=== PATIENT | male | born 1950 | race Caucasian/White ===

== ENCOUNTER 2020-12-18 10:23 | Outpatient (REF) | payer MEDICARE, SELFPAY ==
[2020-12-18 10:38] LABS: MANUAL DIFF FLAG NO
[2020-12-18 11:06] LABS: Basophils Percent Auto 0.5 % (0-2); Eosinophils Absolute Auto 0.3 X10*3/uL (0.0-0.4); Eosinophils Percent Auto 4.5 % (0-4); Hematocrit 42.2 % (42-52); Hemoglobin 14.2 g/dl (14.0-18.0); Imm Gran Abs Auto 0.02 X10*3/uL (0.00-0.03); Imm Gran Pct Auto 0.3 % (0.0-0.4); Lymphocytes Absolute Auto 2.3 X10*3/uL (1.2-4.9); Lymphocytes Percent Auto 30.2 % (20-40); Mean Corpuscular HGB Conc 33.6 g/dl (31.0-36.0); Mean Corpuscular Hemoglobin 29.8 pg (27.0-33.0); Mean Corpuscular Volume 88.7 fL (80-98); Mean Platelet Volume 9.9 fL (9.4-12.4); Monocytes Absolute Auto 0.7 X10*3/uL (0.1-1.2); Monocytes Percent Auto 8.8 % (2-11); Neutrophils Absolute Auto 4.2 X10*3/uL (2.0-8.3); Neutrophils Percent Auto 55.7 % (45-73); Platelet Count 254 X10*3/uL (160-400); Red Blood Count 4.76 X10*6/uL (4.60-5.80); Red Cell Distribution Width 13.1 % (11.0-16.0); White Blood Count 7.5 X10*3/uL (4.8-10.8)
[2020-12-18 11:15] LABS: Estimated Average Glucose 120 mg/dL; Hemoglobin A1c % 5.8 %
[2020-12-18 11:41] LABS: Glucose Urine UA NEG (NEG); Leukocyte Esterase Urine NEG (NEG); Nitrite Urine NEG (NEG); Urine Blood NEG (NEG); Urine Ketones NEG (NEG); Urine Protein NEG (NEG-TRACE)
[2020-12-18 11:53] LABS: Appearance Urine CLEAR; Color Urine YELLOW
[2020-12-18 12:13] LABS: Alanine Aminotransferase 37 U/L (0-40); Albumin Level 4.7 g/dL (3.5-5.0); Alkaline Phosphatase 51 U/L (39-117); Anion Gap 15 (12-20); Aspartate Amino Transferase 22 U/L (5-37); Bilirubin Total 0.6 mg/dL (0.0-1.0); Blood Urea Nitrogen 14 mg/dL (9-16); Carbon Dioxide 25 mmol/L (22-29); Chloride 105 mmol/L (96-108); Cholesterol 139 mg/dL; Estimated Glomerular Filt Rate > 60; Glucose Fasting 113 mg/dL (60-99); HDL Cholesterol 40 mg/dL; LDL Cholesterol Calculated 63 mg/dl; Sodium 141 mmol/L (135-145); Total Protein 7.1 g/dL (6.5-8.0); Triglycerides 184 mg/dL
[2020-12-18 12:20] LABS: PSA,Total (Free>4and<10) 1.31 ng/mL (0.00-4.00)
[2020-12-18 12:44] LABS: Creatinine Urine 24.83 mg/dL; Microalbumin Urine < 5.0 mg/L
[2020-12-18 13:35] LABS: Reflex LDLD? No
== END 2020-12-18 10:24 | disposition home or self-care (01) ==
LOC: HO.LNP 10:23
PROVIDERS: Visit Provider Internal Medicine
DX: Z00.00 Encounter for general adult medical examination without abnormal findings (principal); I10 Essential (primary) hypertension; E78.00 Pure hypercholesterolemia, unspecified; N40.0 Benign prostatic hyperplasia without lower urinary tract symptoms; E11.9 Type 2 diabetes mellitus without complications; Z12.5 Encounter for screening for malignant neoplasm of prostate
CPT/HCPCS: 80053; 80061; 81003; 82043; 83036; 84153; 85025

== ENCOUNTER 2021-12-20 11:25 | Outpatient (REF) | payer MEDICARE, SELFPAY ==
[2021-12-20 11:28] LABS: MANUAL DIFF FLAG NO
[2021-12-20 11:48] LABS: Basophils Absolute Auto 0.1 X10*3/uL (0.0-0.2); Basophils Percent Auto 0.8 % (0-2); Eosinophils Absolute Auto 0.4 X10*3/uL (0.0-0.4); Eosinophils Percent Auto 4.8 % (0-4); Hemoglobin 14.6 g/dl (14.0-18.0); Imm Gran Abs Auto 0.02 X10*3/uL (0.00-0.03); Imm Gran Pct Auto 0.3 % (0.0-0.4); Lymphocytes Absolute Auto 1.9 X10*3/uL (1.2-4.9); Lymphocytes Percent Auto 25.4 % (20-40); Mean Corpuscular HGB Conc 33.2 g/dl (31.0-36.0); Mean Corpuscular Hemoglobin 29.7 pg (27.0-33.0); Mean Corpuscular Volume 89.4 fL (80.0-98.0); Mean Platelet Volume 9.5 fL (9.4-12.4); Monocytes Absolute Auto 0.7 X10*3/uL (0.1-1.2); Monocytes Percent Auto 9.5 % (2-11); Neutrophils Absolute Auto 4.5 x10*3/uL (2.0-8.3); Neutrophils Percent Auto 59.2 % (45-73); Platelet Count 241 X10*3/uL (160-400); Red Blood Count 4.92 X10*6/uL (4.60-5.80); Red Cell Distribution Width 12.4 % (11.0-16.0); White Blood Count 7.6 X10*3/uL (4.8-10.8)
[2021-12-20 11:56] LABS: Estimated Average Glucose 114 mg/dL; Hemoglobin A1c % 5.6 %
[2021-12-20 11:57] LABS: Appearance Urine CLEAR; Color Urine YELLOW; Glucose Urine UA NEG (NEG); Leukocyte Esterase Urine NEG (NEG); Nitrite Urine NEG (NEG); PH 6.5 (5.0-8.0); Specific Gravity - Urine <= 1.005 (1.005-1.025); Urine Blood NEG (NEG); Urine Ketones NEG (NEG); Urine Protein NEG (NEG-TRACE)
[2021-12-20 12:04] LABS: Alanine Aminotransferase 32 U/L (0-40); Albumin Level 4.5 g/dL (3.5-5.0); Alkaline Phosphatase 51 U/L (39-117); Anion Gap 12 (12-20); Aspartate Amino Transferase 22 U/L (5-37); Bilirubin Total 0.7 mg/dL (0.0-1.0); Blood Urea Nitrogen 19 mg/dL (9-16); Calcium 10.4 mg/dL (8.4-10.2); Carbon Dioxide 26 mmol/L (22-29); Chloride 104 mmol/L (96-108); Cholesterol 137 mg/dL; Estimated Glomerular Filt Rate > 60; Glucose Fasting 94 mg/dL (60-99); HDL Cholesterol 38 mg/dL; LDL Cholesterol Calculated 80 mg/dl; Sodium 138 mmol/L (135-145); Total Protein 7.1 g/dL (6.5-8.0); Triglycerides 98 mg/dL
[2021-12-20 12:12] LABS: RBC Urine 0 /HPF (0); WBC Urine 0 /HPF (0-4)
[2021-12-20 12:22] LABS: Creatinine Urine 30.77 mg/dL; Microalbumin Urine < 5.0 mg/L
== END 2021-12-20 11:26 | disposition home or self-care (01) ==
LOC: HO.LNP 11:25
PROVIDERS: Visit Provider Internal Medicine
DX: Z00.00 Encounter for general adult medical examination without abnormal findings (principal); I10 Essential (primary) hypertension; E78.6 Lipoprotein deficiency; E78.00 Pure hypercholesterolemia, unspecified; E11.9 Type 2 diabetes mellitus without complications
CPT/HCPCS: 80053; 80061; 81001; 82043; 83036; 85025

== ENCOUNTER 2021-12-27 15:55 | Outpatient (REF) | payer MEDICARE, SELFPAY ==
[2021-12-27 16:19] LABS: Calcium 11.1 mg/dL (8.4-10.2)
[2021-12-27 16:37] LABS: PSA,Total (Free>4and<10) 2.62 ng/mL (0.00-4.00)
== END 2021-12-27 15:56 | disposition home or self-care (01) ==
LOC: HO.LNP 15:55
PROVIDERS: Visit Provider Internal Medicine
DX: Z12.5 Encounter for screening for malignant neoplasm of prostate (principal); N40.0 Benign prostatic hyperplasia without lower urinary tract symptoms; E83.52 Hypercalcemia
CPT/HCPCS: 82310; 84153

== ENCOUNTER 2021-12-28 10:03 | Outpatient (REF) | payer MEDICARE, SELFPAY ==
[2022-01-01 13:41] LABS: Calcium (PTHI) 10.5 mg/dL (8.6-10.3); PTHI 70 pg/mL (16-77)
== END 2021-12-28 10:04 | disposition home or self-care (01) ==
LOC: HO.LAB 10:03
PROVIDERS: PCP Internal Medicine; Visit Provider Internal Medicine
DX: E83.52 Hypercalcemia (principal)
CPT/HCPCS: 36415; 83970

== ENCOUNTER 2022-01-24 08:33 | Outpatient (REF) | payer MEDICARE, SELFPAY ==
--- NOTE | ~2022-01-24 | MM_ITS ---
EXAMINATION: BONE DENSITOMETRY CLINICAL INDICATION: Hyperparathyroidism. COMPARISON: None (current study represents initial baseline exam). TECHNIQUE: Using a DrDoctor DXA System (software version: 13.1) manufactured by [employer], dual-energy x-ray absorptiometry was performed of the lumbar spine, left hip, and left forearm radius 33%. The images are of good technical quality. Summary results are attached. FINDINGS: AP SPINE L1-L2 (excluding L3 and L4): The data of L1-L4 has been changed to exclude the L3 and L4 vertebral bodies, because degenerative changes at these levels may cause overestimation of lumbar spine density. BMD 1.360 g/cm2, Z-score 1.2, T-score 1.3, normal. LEFT FEMUR, NECK: BMD 0.994 g/cm2, Z-score 0.2, T-score -0.6, normal. LEFT FEMUR, TOTAL: BMD 1.114 g/cm2, Z-score 0.4, T-score 0.1, normal. LEFT FOREARM RADIUS 33%: BMD 1.091 g/cm2, Z-score 1.9, T-score 1.0, normal. IDENTIFIED RISK FACTORS: Family history (parent hip fracture), hyperparathyroid, Thiazide. HISTORY OF FRACTURE: None listed. MEDICATIONS: Calcium, vitamin D. MM/XR DEXA appendicular skeleton IMPRESSION: 1. DIAGNOSIS: Normal bone density based on the lowest T-score value of -0.6 in the femoral neck applying World Health Organization criteria. 2. 10-YEAR FRACTURE RISK PREDICTION, FRAX: According to the guidelines, FRAX calculation should only be performed on patients in the osteopenia bone density category. Therefore, FRAX was not performed on this patient. 3. Treatment Recommendations: NOF guidelines recommend consideration for treatment in postmenopausal women and men age 50 and older presenting with the following: -A hip or vertebral (clinical or morphometric) fracture. -T-score less than or equal to -2.5 at the femoral neck or spine after appropriate evaluation to exclude secondary causes. -Low bone mass at the hip or spine and a 10-year fracture probability by FRAX of greater than or equal to 3% for hip fracture or greater than or equal to 20% for major osteoporotic fracture based on the [place] adapted WHO algorithm. 4. Other Recommendations: All treatment decisions require clinical judgment and consideration of individual patient factors, including patient preferences, comorbidities, previous drug use, risk factors not captured in the FRAX model (e.g. frailty, falls, vitamin D deficiency, increased bone turnover, interval significant decline in bone density) and possible under or overestimation of fracture risk by FRAX. FUTURE SCAN RECOMMENDATION: People with diagnosed cases of osteoporosis or at high risk for fracture should have regular bone mineral density tests. For patients eligible for Medicare, routine testing is allowed once every 2 years. The testing frequency can be increased to one year for patients who have rapidly progressing disease, those who are receiving or discontinuing medical therapy to restore bone mass, or have additional risk factors.
== END 2022-01-24 08:34 | disposition home or self-care (01) ==
LOC: HO.MAMMO 08:33
PROVIDERS: PCP Internal Medicine; Visit Provider Internal Medicine
DX: Z13.820 Encounter for screening for osteoporosis (principal); E21.3 Hyperparathyroidism, unspecified; Z79.899 Other long term (current) drug therapy
CPT/HCPCS: 77081

== ENCOUNTER 2022-04-22 07:24 | Outpatient (REF) | payer MEDICARE, SELFPAY ==
[2022-04-22 08:07] LABS: Calcium 10.3 mg/dL (8.4-10.2)
== END 2022-04-22 07:25 | disposition home or self-care (01) ==
LOC: HO.LAB 07:24
PROVIDERS: PCP Internal Medicine; Visit Provider Internal Medicine
DX: E83.52 Hypercalcemia (principal)
CPT/HCPCS: 36415; 82310

== ENCOUNTER 2022-06-21 10:47 | Outpatient (REF) | payer MEDICARE, SELFPAY ==
[2022-06-21 11:22] LABS: Estimated Average Glucose 117 mg/dL; Hemoglobin A1c % 5.7 %
[2022-06-21 12:33] LABS: Alanine Aminotransferase 31 U/L (0-40); Alkaline Phosphatase 61 U/L (39-117); Aspartate Amino Transferase 23 U/L (5-37); Bilirubin Direct 0.3 mg/dL (0.0-0.5); Bilirubin Total 0.6 mg/dL (0.0-1.0); Cholesterol 149 mg/dL; Glucose Fasting 108 mg/dL (60-99); HDL Cholesterol 43 mg/dL; LDL Cholesterol Calculated 82 mg/dl; Total Protein 7.2 g/dL (6.5-8.0); Triglycerides 123 mg/dL
[2022-06-21 12:56] LABS: Albumin Level 4.7 g/dL (3.5-5.0)
[2022-06-21 14:50] LABS: Reflex LDLD? No
== END 2022-06-21 10:48 | disposition home or self-care (01) ==
LOC: HO.LNP 10:47
PROVIDERS: Visit Provider Internal Medicine
DX: E78.00 Pure hypercholesterolemia, unspecified (principal); E11.9 Type 2 diabetes mellitus without complications
CPT/HCPCS: 80061; 80076; 82947; 83036

== ENCOUNTER → 2022-08-20 07:56 | Outpatient (BNVA) | payer MEDICARE, SELFPAY | PROVIDERS: PCP Internal Medicine; Visit Provider Internal Medicine Endocrinology, Diabetes & Metabolism | DX: E21.3 Hyperparathyroidism, unspecified (principal) | CPT/HCPCS: 99202 ==

== ENCOUNTER 2022-11-21 06:04 | Outpatient (REF) | payer MEDICARE, SELFPAY ==
[2022-11-21 07:59] LABS: Calcium 9.7 mg/dL (8.4-10.2)
[2022-11-21 08:26] LABS: Vitamin D 25-OH Total 20.7 ng/mL (>30)
[2022-11-25 15:29] LABS: Calcium (PTHI) 10.2 mg/dL (8.6-10.3); PTHI 34 pg/mL (16-77)
== END 2022-11-21 06:05 | disposition home or self-care (01) ==
LOC: HO.LAB 06:04
PROVIDERS: Internal Medicine Endocrinology, Diabetes & Metabolism; PCP Internal Medicine; Visit Provider Internal Medicine
DX: E21.3 Hyperparathyroidism, unspecified (principal); E55.9 Vitamin D deficiency, unspecified
CPT/HCPCS: 36415; 82306; 82310; 83970

== ENCOUNTER 2022-12-24 10:55 | Outpatient (REF) | payer MEDICARE, SELFPAY ==
[2022-12-24 11:00] LABS: MANUAL DIFF FLAG NO
[2022-12-24 11:15] LABS: Basophils Absolute Auto 0.1 X10*3/uL (0.0-0.2); Basophils Percent Auto 0.6 % (0-2); Eosinophils Absolute Auto 0.2 X10*3/uL (0.0-0.4); Eosinophils Percent Auto 2.7 % (0-4); Hematocrit 42.8 % (42.0-52.0); Hemoglobin 14.6 g/dl (14.0-18.0); Imm Gran Abs Auto 0.02 X10*3/uL (0.00-0.03); Imm Gran Pct Auto 0.2 % (0.0-0.4); Lymphocytes Absolute Auto 2.4 X10*3/uL (1.2-4.9); Mean Corpuscular HGB Conc 34.1 g/dl (31.0-36.0); Mean Corpuscular Hemoglobin 30.1 pg (27.0-33.0); Mean Corpuscular Volume 88.2 fL (80.0-98.0); Mean Platelet Volume 9.7 fL (9.4-12.4); Monocytes Absolute Auto 0.8 X10*3/uL (0.1-1.2); Monocytes Percent Auto 9.8 % (2-11); Neutrophils Absolute Auto 4.6 x10*3/uL (2.0-8.3); Neutrophils Percent Auto 56.7 % (45-73); Platelet Count 234 X10*3/uL (160-400); Red Blood Count 4.85 X10*6/uL (4.60-5.80); Red Cell Distribution Width 13.1 % (11.0-16.0); White Blood Count 8.1 X10*3/uL (4.8-10.8)
[2022-12-24 11:25] LABS: Appearance Urine Clear; Color Urine Yellow; Glucose Urine UA Negative (Negative); Leukocyte Esterase Urine Negative (Negative); Nitrite Urine Negative (Negative); Specific Gravity - Urine <= 1.005 (1.005-1.025); Urine Blood Negative (Negative); Urine Ketones Negative (Negative); Urine Protein Negative (Neg-Trace)
[2022-12-24 11:30] LABS: Alanine Aminotransferase 34 U/L (0-40); Albumin Level 4.7 g/dL (3.5-5.0); Alkaline Phosphatase 59 U/L (39-117); Anion Gap 10 (12-20); Aspartate Amino Transferase 22 U/L (5-37); Bilirubin Total 0.8 mg/dL (0.0-1.0); Blood Urea Nitrogen 19 mg/dL (9-16); Calcium 10.5 mg/dL (8.4-10.2); Carbon Dioxide 28 mmol/L (22-29); Chloride 107 mmol/L (96-108); Estimated Glomerular Filt Rate > 60; Glucose Fasting 110 mg/dL (60-99); Potassium 4.1 mmol/L (3.3-5.1); Sodium 141 mmol/L (135-145); Total Protein 7.3 g/dL (6.5-8.0)
[2022-12-24 11:34] LABS: Bacteria Urine None Seen (None Seen); Hyaline Casts Urine 0-2 /LPF (0-2); RBC Urine 0-2 /HPF (0-2); Squamous Epithelial Cell Urine 0-2 /HPF (0-2); WBC Urine 0-5 /HPF (0-5)
[2022-12-24 11:46] LABS: PSA,Total (Free>4and<10) 3.79 ng/mL (0.00-4.00); Vitamin D 25-OH Total 24.3 ng/mL (>30)
[2022-12-24 11:57] LABS: Microalbumin Urine < 5.0 mg/L
[2022-12-24 12:14] LABS: Estimated Average Glucose 114 mg/dL; Hemoglobin A1c % 5.6 %
== END 2022-12-24 10:56 | disposition home or self-care (01) ==
LOC: HO.LNP 10:55
PROVIDERS: Visit Provider Internal Medicine
DX: Z00.00 Encounter for general adult medical examination without abnormal findings (principal); Z12.5 Encounter for screening for malignant neoplasm of prostate; I10 Essential (primary) hypertension; E78.00 Pure hypercholesterolemia, unspecified; E11.9 Type 2 diabetes mellitus without complications; N40.0 Benign prostatic hyperplasia without lower urinary tract symptoms; E55.9 Vitamin D deficiency, unspecified
CPT/HCPCS: 80053; 81001; 82043; 82306; 83036; 84153; 85025

== ENCOUNTER 2023-01-31 06:08 | Outpatient (REF) | payer MEDICARE, SELFPAY ==
[2023-01-31 08:22] LABS: Vitamin D 25-OH Total 30.5 ng/mL (>30)
== END 2023-01-31 06:09 | disposition home or self-care (01) ==
LOC: HO.LAB 06:08
PROVIDERS: PCP Internal Medicine; Visit Provider Internal Medicine Endocrinology, Diabetes & Metabolism
DX: E21.3 Hyperparathyroidism, unspecified (principal); E55.9 Vitamin D deficiency, unspecified
CPT/HCPCS: 36415; 82306

== ENCOUNTER → 2023-02-05 09:23 | Outpatient (BNVA) | payer MEDICARE, SELFPAY | PROVIDERS: PCP Internal Medicine; Visit Provider Internal Medicine Endocrinology, Diabetes & Metabolism | DX: E21.3 Hyperparathyroidism, unspecified (principal) | CPT/HCPCS: 99212 ==

== ENCOUNTER 2023-08-21 13:07 | Outpatient (REF) | payer MEDICARE, SELFPAY ==
[2023-08-21 13:33] LABS: Blood Urea Nitrogen 16 mg/dL (9-16); Calcium 11.1 mg/dL (8.4-10.2); Estimated Glomerular Filt Rate > 60
[2023-08-21 14:07] LABS: Creatinine Urine 36.96 mg/dL; Microalbum/Creatinine Ratio Ur 13.5 ug/mg cr (<30)
== END 2023-08-21 13:08 | disposition home or self-care (01) ==
LOC: HO.LNP 13:07
PROVIDERS: Visit Provider Internal Medicine
DX: I10 Essential (primary) hypertension (principal)
CPT/HCPCS: 82043; 82310; 82565; 82570; 84520

== ENCOUNTER 2023-10-20 10:33 | Outpatient (REF) | payer MEDICARE, SELFPAY ==
[2023-10-20 14:06] LABS: Calcium 10.5 mg/dL (8.4-10.2)
[2023-10-20 14:11] LABS: Vitamin D 25-OH Total 28.2 ng/mL (>30)
[2023-10-20 14:16] LABS: Parathyroid Hormone Intact 102.2 pg/mL (8.7-77.1)
== END 2023-10-20 10:34 | disposition home or self-care (01) ==
LOC: HO.10HDL 10:33
PROVIDERS: Visit Provider Internal Medicine
DX: E21.3 Hyperparathyroidism, unspecified (principal)
CPT/HCPCS: 36415; 82306; 82310; 83970

== ENCOUNTER 2023-12-26 10:33 | Outpatient (REF) | payer MEDICARE, SELFPAY ==
[2023-12-26 10:42] LABS: MANUAL DIFF FLAG NO
[2023-12-26 11:11] LABS: Basophils Absolute Auto 0.1 X10*3/uL (0.0-0.2); Basophils Percent Auto 0.8 % (0-2); Eosinophils Absolute Auto 0.2 X10*3/uL (0.0-0.4); Eosinophils Percent Auto 2.8 % (0-4); Hematocrit 43.9 % (42.0-52.0); Imm Gran Abs Auto 0.01 X10*3/uL (0.00-0.03); Imm Gran Pct Auto 0.1 % (0.0-0.4); Lymphocytes Absolute Auto 2.3 X10*3/uL (1.2-4.9); Mean Corpuscular HGB Conc 34.2 g/dl (31.0-36.0); Mean Corpuscular Hemoglobin 30.3 pg (27.0-33.0); Mean Corpuscular Volume 88.7 fL (80.0-98.0); Mean Platelet Volume 10.1 fL (9.4-12.4); Monocytes Absolute Auto 0.8 X10*3/uL (0.1-1.2); Monocytes Percent Auto 10.2 % (2-11); Neutrophils Absolute Auto 4.4 x10*3/uL (2.0-8.3); Neutrophils Percent Auto 57.1 % (45-73); Platelet Count 255 X10*3/uL (160-400); Red Blood Count 4.95 X10*6/uL (4.60-5.80); Red Cell Distribution Width 13.1 % (11.0-16.0); White Blood Count 7.8 X10*3/uL (4.8-10.8)
[2023-12-26 11:23] LABS: Appearance Urine Clear; Color Urine Yellow; Glucose Urine UA Negative (Negative); Leukocyte Esterase Urine Trace (Negative); Nitrite Urine Negative (Negative); PH 5.5 (5.0-9.0); UMIC TRIGGER UACC YES; Urine Blood Negative (Negative); Urine Ketones Negative (Negative); Urine Protein Negative (Neg-Trace)
[2023-12-26 11:25] LABS: Creatinine Urine 52.66 mg/dL; Microalbum/Creatinine Ratio Ur 11.3 ug/mg cr (<30)
[2023-12-26 11:30] LABS: Bacteria Urine None Seen (None Seen); Hyaline Casts Urine 0-2 /LPF (0-2); RBC Urine 0-2 /HPF (0-2); Squamous Epithelial Cell Urine 0-2 /HPF (0-2); WBC Urine 0-5 /HPF (0-5)
[2023-12-26 11:35] LABS: Estimated Average Glucose 123 mg/dL; Hemoglobin A1c % 5.9 % (<6.0)
[2023-12-26 11:54] LABS: Alanine Aminotransferase 41 U/L (0-40); Albumin Level 4.8 g/dL (3.5-5.0); Alkaline Phosphatase 60 U/L (39-117); Anion Gap 12 (12-20); Aspartate Amino Transferase 32 U/L (5-37); Bilirubin Total 0.7 mg/dL (0.0-1.0); Blood Urea Nitrogen 14 mg/dL (9-16); Calcium 10.5 mg/dL (8.4-10.2); Carbon Dioxide 22 mmol/L (22-29); Chloride 108 mmol/L (96-108); Cholesterol 121 mg/dL (<200); Estimated Glomerular Filt Rate > 60; Glucose Fasting 107 mg/dL (60-99); HDL Cholesterol 42 mg/dL (>40); LDL Cholesterol Calculated 49 mg/dL (<100); Potassium 4.3 mmol/L (3.3-5.1); Sodium 138 mmol/L (135-145); Total Protein 7.6 g/dL (6.5-8.0); Triglycerides 150 mg/dL (<150)
[2023-12-26 12:11] LABS: Vitamin D 25-OH Total 34.2 ng/mL (>30)
[2023-12-26 12:33] LABS: PSA,Total (Free>4and<10) 4.51 ng/mL (0.00-4.00)
[2023-12-30 14:28] LABS: Free Prostate Spec Ag 1.6 ng/mL; Percent Free Prostate Spec Ag 34 % (calc) (>25); Prostate Specific Ag Total 4.7 ng/mL (< OR = 4.0)
== END 2023-12-26 10:34 | disposition home or self-care (01) ==
LOC: HO.LNP 10:33
PROVIDERS: Visit Provider Internal Medicine
DX: Z00.00 Encounter for general adult medical examination without abnormal findings (principal); Z12.5 Encounter for screening for malignant neoplasm of prostate; I10 Essential (primary) hypertension; E78.00 Pure hypercholesterolemia, unspecified; E11.9 Type 2 diabetes mellitus without complications; N40.0 Benign prostatic hyperplasia without lower urinary tract symptoms; E55.9 Vitamin D deficiency, unspecified
CPT/HCPCS: 80053; 80061; 81001; 82043; 82306; 82570; 83036; 84153; 84154; 85025

== ENCOUNTER 2024-01-28 08:58 | Outpatient (AMB) | payer MEDICARE, SELFPAY ==
--- NOTE | 2024-01-28 08:59 | MHC.OFFVIS ---
Intake Visit Reasons: PVR/UA/PSA(last seen 2019) Intake Note: Patient presents to the office today for a PVR/UA/PSA. Pt was last seen in 2019. Urology Meds:None Blood Thinners: None PVR: 518ml Allergies No Known Allergies Allergy (Verified 01/28/24 08:59) HPI Comments Details: Aaron is a very pleasant male. He is a patient of Dr. Fields. 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 Has not been seen since 2019 Incomplete bladder emptying PVR 200 cc Feels as though he is emptying Discussed trial of medications High PVR PSA 4.7 free PSA 34% Prescriptions provided finasteride and alfuzosin Three-month follow-up PFSH Medical History Hyperparathyroidism Surgical History Hx of cystoscopy Hx of colonoscopy Family History Father Parkinsons Mother Alzheimer disease Social History Household Members: Spouse Household Members Other:: Alcohol intake: current Alcohol intake frequency: does not drink Patient Tobacco Use Status: Never used Tobacco Review of Systems Const Denies chills and Denies fever(s) Card Reports no additional complaints and Denies syncope Resp Denies cough GI Denies abdominal pain and Denies heartburn Reports as per HPI and Denies change in libido Neuro Denies syncope Psych Denies change in libido Endo Denies change in libido Physical Exam Const General: cooperative, healthy appearing, comfortable and no acute distress Orientation/consciousness: patient oriented x3 HEENT Face and sinus: Yes normal facial exam Mouth: moist mucous membranes Neck Neck: Yes normal visual inspection, Yes full ROM and Yes trachea midline Chest Chest palpation & inspection: normal inspection of the chest Resp Effort & Inspection: normal respiratory effort, able to speak in complete sentences and no respiratory distress GI Inspection: Yes normal to inspection Back/Spine/Pelvis Cervical Spine: normal cervical lordosis Thoracic/Lumbar Spine: thoracic and lumbar spine normal to inspection Skin General skin exam: no rashes or lesions noted Neuro General: patient oriented x3, gait normal, tone normal and moves all extremities Extrem General: Yes normal to inspection and Yes capillary refill normal Office Procedures Post Void Residual Post Residual Void Post Void Residual (PVR): 518 [id number] Void Residual by ultrasound Results AMB Urinalysis, Automated UA Leukoctes 0 Heide/uL Last Edit by Diana Payan CMA on 01/28/24 09:12 UA Nitrite Negative Last Edit by Diana Payan CMA on 01/28/24 09:12 UA Urobilinogen 0.2 mg/dL Last Edit by Diana Payan CMA on 01/28/24 09:12 UA Protein 0 mg/dL Last Edit by Diana Payan CMA on 01/28/24 09:12 UA pH 6.0 Last Edit by Diana Payan CMA on 01/28/24 09:12 UA Blood 0 [place]/uL Last Edit by Diana Payan CMA on 01/28/24 09:12 UA Specific [place] 1.005 Last Edit by Diana Payan CMA on 01/28/24 09:12 UA Ketone Negative Last Edit by Diana Payan CMA on 01/28/24 09:12 UA Bilirubin 0 mg/dL Last Edit by Diana Payan CMA on 01/28/24 09:12 UA Glucose 0 mg/dL Last Edit by Diana Payan CMA on 01/28/24 09:12 Results Reviewed Results Reviewed: Laboratory Last Values Urine pH (Auto) 6.0 01/28/24 09:01 Specific [place] (Auto) 1.005 01/28/24 09:01 Urine Protein (Auto) 0 mg/dL 01/28/24 09:01 Glucose (UA)(Auto) 0 mg/dL 01/28/24 09:01 Urine Ketones (Auto) Negative 01/28/24 09:01 Urine Blood (Auto) 0 [place]/uL 01/28/24 09:01 Urine Nitrite (Auto) Negative 01/28/24 09:01 Urine Bilirubin (Auto) 0 mg/dL 01/28/24 09:01 Urine Urobilinogen (Auto) 0.2 mg/dL 01/28/24 09:01 Leukocyte Esterase (Auto) 0 [place]/uL 01/28/24 09:01 Assessment & Plan Assessment & Plan (1) Incomplete emptying of bladder due to benign prostatic hyperplasia: Code(s): N40.1 - Benign prostatic hyperplasia with lower urinary tract symptoms; R33.9 - Retention of urine, unspecified Category: Medical Plan Three-month follow-up lab work Orders: Orders AMB Post Void Residual by ultrasound 01/28/24 N40.0 - Benign prostatic hyperplasia without lower urinary tract symptoms AMB Urinalysis Automated 01/28/24 Z13.9 - Encounter for screening, unspecified Medications: New alfuzosin ER administer after the same meal each day 10 mg PO DAILY 90 days 90 tabs 0RF N13.8 - Other obstructive and reflux uropathy, N40.1 - Benign prostatic hyperplasia with lower urinary tract symptoms, R33.9 - Retention of urine, unspecified finasteride 5 mg PO DAILY 90 days 90 tabs 0RF N32.0 - Bladder-neck obstruction, N40.1 - Benign prostatic hyperplasia with lower urinary tract symptoms, R33.9 - Retention of urine, unspecified Patient Instructions: Imaging studies, laboratory and physical exam results were discussed and reviewed in detail. No major barriers to patient understanding were identified. An opportunity to ask questions regarding the treatment plan was provided. All questions were answered. The patient expressed understanding and agreement with the above treatment plan. The patient is aware they should contact our office by phone for worsening of their current condition or the appearance of new urologic symptoms. Compliance is encouraged with any medications and followup testing that is ordered. It is a privilege to participate in the urologic care of your patient. If you have any questions or concerns regarding treatment for the above conditions, or other urologic issues, please do not hesitate to contact me. The office telephone contact is [phone]. This note is constructed using voice recognition software. While every effort has been made to ensure accuracy inspector packer glass container errors may have been included. Yours sincerely, Dr Casa Valladares MD, JO ANN [facility] - Urology Providers of Expert, Compassionate Care for the Genitourinary System Coding Level of Care Code New Pt Level 4 (36220) Diagnoses Incomplete emptying of bladder due to benign prostatic hyperplasia N40.1; R33.9 CPT Codes Post Residual Void - PVR CPT Code: 22623-[place] Void Residual by ultrasound ([id number])
== END 2024-01-28 10:12 | disposition home or self-care (01) ==
PROVIDERS: PCP Internal Medicine; Visit Provider Urology
DX: N40.1 Benign prostatic hyperplasia with lower urinary tract symptoms (principal); R33.9 Retention of urine, unspecified
CPT/HCPCS: 99204

== ENCOUNTER → 2024-01-28 08:58 | Outpatient (BNVA) | payer MEDICARE, SELFPAY | PROVIDERS: PCP Internal Medicine; Visit Provider Urology | DX: N40.1 Benign prostatic hyperplasia with lower urinary tract symptoms (principal); R33.8 Other retention of urine; N13.8 Other obstructive and reflux uropathy; N32.0 Bladder-neck obstruction | CPT/HCPCS: 51798; 81003; 99202 ==

== ENCOUNTER 2024-03-23 10:20 | Outpatient (REF) | payer MEDICARE, SELFPAY ==
--- NOTE | ~2024-03-23 | US_ITS ---
EXAMINATION: US PELVIS LIMITED (BLADDER) CLINICAL INFORMATION: Bladder outlet obstruction. COMPARISON: None available. TECHNIQUE: Real-time imaging of the bladder. FINDINGS: BLADDER: Distended at 1546 mL. Post void residual of 1402 mL. Trabeculated bladder wall with debris in the bladder. Right ureteral jet not seen. Left ureteral jet present. Enlarged prostate measuring 119 mL. US/US bladder IMPRESSION: Enlarged prostate with distended urinary bladder and large post void residual consistent with bladder outlet obstruction. Electronically signed by: Claudy Vizcarra MD 03/24/2024 01:30 PM EDT
== END 2024-03-23 10:21 | disposition home or self-care (01) ==
LOC: HO.HMGCX 10:20
PROVIDERS: PCP Internal Medicine; Visit Provider Internal Medicine
DX: Z13.89 Encounter for screening for other disorder (principal)
CPT/HCPCS: 76857

== ENCOUNTER 2024-03-23 11:15 | Emergency (ER) | payer MEDICARE, SELFPAY ==
--- NOTE | ~2024-03-23 | CT_ITS ---
EXAMINATION: CT ABDOMEN AND PELVIS WITHOUT CONTRAST CLINICAL INFORMATION: Urinary retention. COMPARISON: None available. TECHNIQUE: Multidetector volumetric imaging was performed from the superior aspect of the liver through the pubic symphysis. Sagittal and coronal reformatted images were obtained on the technologist's workstation. This CT examination was performed using dose optimization techniques as appropriate, variously including the following: *Automated exposure control *Adjustment of mA and/or kV according to patient size (this includes techniques or standardized protocols for targeted exams where dose is matched to indication/reason for exam; i.e. extremities or head) *Use of iterative reconstruction technique DLP: 752 mGy-cm FINDINGS: LUNG BASES: -Image lung bases are essentially clear bilaterally aside from mild scarring or atelectasis medial left lung base. -No pleural effusions. -Heart size is normal. -Small type I hiatus hernia. LIVER, GALLBLADDER, AND BILIARY TREE: -Unenhanced liver demonstrates a tiny subcentimeter hypodensity in segment 7, likely a cyst but too small to accurately characterize. No additional liver abnormalities. - The gallbladder is unremarkable with no evidence of radiopaque gallstones, gallbladder wall thickening, or obvious pericholecystic inflammatory changes. -There is no biliary abnormality. PANCREAS: Unremarkable. SPLEEN: Unremarkable. ADRENAL GLANDS: Unremarkable. KIDNEYS AND URETERS: -There is bilateral hydroureteronephrosis. Ureters are dilated to the level of the insertions upon the urinary bladder. No definite obstructing lesion identified on this noncontrast study. No ureteral calculi seen. There are approximately 2 tiny 2 mm nonobstructing calculi left kidney. No right renal calculi. -No renal masses or cysts identified. -There is bilateral perirenal stranding. BLADDER: -Completely decompressed around a Parker catheter balloon. There is definite generalized bladder wall thickening despite a completely contracted urinary bladder. GASTROINTESTINAL TRACT: -Small type I hiatus hernia. -Stomach is somewhat decompressed but normal in appearance grossly. -Duodenal sweep is normal in appearance. -Small bowel is nondilated, normal in course, and caliber, without inflammatory changes. The terminal ileum appears normal. -The colon demonstrates moderate fecal retention throughout. No wall thickening or inflammation identified. Mildly redundant sigmoid colon. -Normal-appearing appendix. ABDOMINAL WALL: -There are bilateral fat-containing small inguinal hernias. -There is a tiny umbilical fat-containing hernia. -Abdominal wall otherwise normal. LYMPH NODES: -No abnormal lymphadenopathy. VASCULAR: No aortic aneurysm. Mild aortic and iliac vascular calcifications. PELVIC VISCERA: Marked enlargement of the prostate gland, which measures 5.8 cm in diameter. The median lobe does protrude into the base of the urinary bladder. OSSEOUS STRUCTURES: -No suspicious lytic or blastic bone lesion. -Moderate spondylosis of the imaged spine. -Partial ankylosis of the left SI joint. -Moderate osteoarthrosis of both hip joints. CT/CT abdomen pelvis wo IV con IMPRESSION: 1. Bilateral hydronephrosis and hydroureter to the level of the urinary bladder, with no definite obstructing calculus or other obstructing abnormality detected. Assessment for mass is limited on this noncontrast study. 2. There are at least 2 tiny nonobstructing 2 mm calculi left kidney. Kidneys otherwise normal. 3. Completely contracted urinary bladder around a Parker catheter. Despite this, there is definite diffuse severe wall thickening of the urinary bladder. Findings suggest cystitis or detrusor hypertrophy from chronic outlet obstruction is 4. Marked prostatic enlargement, 5.8 cm in diameter, with the median lobe protruding into the bladder base. This may be the obstructive etiology. 5. Small bilateral fat-containing inguinal hernias. 6. Moderate fecal retention throughout the colon. No inflammatory changes. 7. Small type I hiatus hernia. 8. Additional ancillary findings as discussed in the body of the report. Fleischner guidelines were followed.
[2024-03-23 11:44] VITALS: BP 210/103; PULSE 59; RESP 16; TEMP 36.6; O2SAT 96; BMI 31.2
--- NOTE | 2024-03-23 11:47 | ED_ITS ---
HPI - General Adult General Chief complaint: Recheck/Abnormal Lab/Rx Stated complaint: Sent by PCP - abnormal ultrasound Time Seen by Provider: 03/23/24 13:12 Source: patient Mode of arrival: ambulatory Limitations: no limitations History of Present Illness ED Provider: Vasile RAY HPI narrative: 74-year-old male history of BPH presents with urinary retention, was told to come to the emergency department since he was retaining urine during an outpatient ultrasound he initially had 1546 cc in urine post void he had 1402. He reports initially he had some suprapubic discomfort however after he had a Rogers catheter placed here in the emergency department this resolved. Is being followed by Urology for BPH. Denies fevers, chills, numbness, tingling, back pain, chest pain, shortness of breath, nausea, vomiting, abdominal pain. Related Data Home Medications ?Medication ?Instructions ?Recorded ?Confirmed simvastatin 40 mg tablet 40 mg PO QPM 08/20/22 lisinopril 20 mg tablet 20 mg PO DAILY 02/05/23 Previous Rx's ?Medication ?Instructions ?Recorded cholecalciferol (vitamin D3) 125 125 mcg PO DAILY #30 caps 11/21/22 mcg (5,000 unit) capsule alfuzosin 10 mg tablet,extended 10 mg PO DAILY 90 days #90 tabs 01/28/24 release 24 hr finasteride 5 mg tablet 5 mg PO DAILY 90 days #90 tabs 01/28/24 cefdinir 300 mg capsule 300 mg PO BID 5 days #10 caps 03/23/24 Allergies Allergy/AdvReac Type Severity Reaction Status Date / Time No Known Allergies Allergy Verified 03/23/24 11:45 Review of Systems 2 Review of Systems: Yes all other systems are reviewed and are negative [facility] Past Medical History Attestation statement: The following information was validated with the patient. Source: old records reviewed and nursing notes reviewed Medical History Hyperparathyroidism Surgical History Hx of cystoscopy Hx of colonoscopy Family History Family History Father Parkinsons Mother Alzheimer disease Social History Social History Household Members: Spouse Household Members Other:: Alcohol intake: current Alcohol intake frequency: does not drink Patient Tobacco Use Status: Never used Tobacco Smoked in Last 30 Days: No Use of substances other than those prescribed or required for medical reasons: No Advance Directives: No Advance Directives Information Provided: No Physical Exam ED Vital Signs: Vital Signs - 24 hr 03/23/24 11:44 03/23/24 15:51 Temperature 97.9 F Pulse Rate 59 62 Respiratory Rate 16 16 Blood Pressure 210/103 H 192/93 H Pulse Oximetry 96 98 Oxygen Delivery Method Room Air Room Air BMI result Body Mass Index 31.2 vss Appearance: Alert.? Oriented X3.? No acute distress.? Head: Normocephalic, atraumatic, no step-offs or deformities Eyes: Pupils equal, round and reactive to light.? CVS: Normal heart rate and rhythm.? Pulses normal.? Respiratory: No respiratory distress.? Breath sounds normal.? Abdomen: Soft and nontender.? Skin: Skin warm and dry.? Normal skin color.? Normal skin turgor.? Extremities: No lower extremity edema.? No calf ttp. 5/5 strength to bilateral upper and lower extremities Neuro: Oriented X 3.? No motor deficit.? No sensory deficit. CN 2-12 intact Course Course Course Narrative: RME, this is a rapid medical exam performed by [address] please refer to primary provider for complete H&P- 74-year-old male past medical history significant for hypertension, BPH presents for evaluation of an abnormal bladder ultrasound. Patient had an outpatient ultrasound today due to history of BPH. His pre void urine volume was 1546 mL and postvoid was down to 1402 mL he was sent directly to the ER. He denies any significant abdominal discomfort. Plan for labs, urinalysis, bladder scan, possible catheterization. The patient appears comfortable but is quite hypertensive Reevaluation(s) Reevaluation #1: CBC unremarkable. Chemistry no acute findings needing intervention. Normal BUN and creatinine. Reevaluation #2: Dr. Akers gross hematuria likely from weeping of bladder ( overstretched --> constricting). As long as no clots patient can go home w/ rogers cath as long as no clots in rogers. Encourage hydration as well prompt follow up. Prob wont get a voiding trial for atleast 2 weeks. Time: 16:53 Reevaluation #3: Bilateral hydronephrosis and hydroureter to the level of the urinary bladder assessment for masses limited on this noncontrast study they are to tiny nonobstructing 2 mm calculi left kidney completely contracted urinary bladder around the Rogers catheter however diffuse wall thickening of the urinary bladder concerning for cystitis or detrusor hypertrophy from chronic outlet obstruction, marked prostatic enlargement, small bilateral fat containing inguinal hernias moderate fecal retention however patient having no complaints of stool incontinence no saddle paresthesias no signs of cord compression. At this time patient to be discharged home with Rogers catheter and prompt urology follow-up. Prophylactic atbx ordered after discussion with urology Time: 17:09 Medical Decision Making Medical Decision Making [facility] Narrative: 1431 74-year-old male presents with urinary retention unclear when it started he has been having issues with BPH for awhile. Asymptomatic. Physical exam benign. Concerns for urinary retention possibly caused by BPH. Other differentials include malignancy. However no constitutional symptoms. No back pain or trauma unlikely cauda equina or cord compression. Will rule out metabolic derangements and urinary infection. Plan labs, urine, Urology consult Differential Diagnosis Differential Diagnoses: The differential diagnosis associated with the presentation includes Concerns for urinary retention possibly caused by BPH. Other differentials include malignancy. However no constitutional symptoms. No back pain or trauma unlikely cauda equina or cord compression. Will rule out metabolic derangements and urinary infection. Admission/Observation Consideration of admission/observation: Escalation of care including admission/observation considered Lab Data [facility] Lab Attestation statement: I reviewed the patient's lab results. 03/23/24 12:29 03/23/24 12:29 Labs: Lab Results 03/23/24 Range/Units 12:29 WBC 9.2 (4.8-10.8) X10*3/uL RBC 4.64 (4.60-5.80) X10*6/uL Hgb 14.1 (14.0-18.0) g/dl Hct 40.7 L (42.0-52.0) % MCV 87.7 (80.0-98.0) fL MCH 30.4 (27.0-33.0) pg MCHC 34.6 (31.0-36.0) g/dl RDW 13.1 (11.0-16.0) % Plt Count 199 (160-400) X10*3/uL MPV 9.4 (9.4-12.4) fL Immature Gran % (Auto) 0.3 (0.0-0.4) % Neut % (Auto) 71.4 (45-73) % Lymph % (Auto) 17.8 L (20-40) % Kimble % (Auto) 7.8 (2-11) % Eos % (Auto) 2.0 (0-4) % Baso % (Auto) 0.7 (0-2) % Lymph # (Auto) 1.6 (1.2-4.9) X10*3/uL Kimble # (Auto) 0.7 (0.1-1.2) X10*3/uL Eos # (Auto) 0.2 (0.0-0.4) X10*3/uL Baso # (Auto) 0.1 (0.0-0.2) X10*3/uL Abs Immat Gran (auto) 0.03 (0.00-0.03) X10*3/uL Absolute Neuts (auto) 6.6 (2.0-8.3) x10*3/uL Absolute Nucleated RBC 0.000 (0.0-0.012) X10*3/uL Nucleated RBC % (auto) 0.0 (0.0-0.2) /100WBC Sodium 143 (135-145) mmol/L Potassium 4.3 (3.3-5.1) mmol/L Chloride 108 (96-108) mmol/L Carbon Dioxide 26 (22-29) mmol/L Anion Gap 13 (12-20) BUN 16 (9-16) mg/dL Creatinine 1.10 (0.5-1.4) mg/dL Estim Creat Clear Calc 76.8 Estimated GFR > 60 Random Glucose 104 (60-115) mg/dL Calcium 11.0 H (8.4-10.2) mg/dL Urine Color Yellow Urine Appearance Clear Urine pH 7.0 (5.0-9.0) Ur Specific [place] <= 1.005 (1.005-1.025) Urine Protein Negative (Neg-Trace) mg/dL Urine Glucose (UA) Negative (Negative) mg/dL Urine Ketones Negative (Negative) mg/dL Urine Blood Negative (Negative) Urine Nitrite Negative (Negative) Ur Leukocyte Esterase Trace H (Negative) Urine RBC 0-2 (0-2) /HPF Urine WBC 0-5 (0-5) /HPF Ur Squamous Epith Cells 0-2 (0-2) /HPF Urine Bacteria None Seen (None Seen) Hyaline Casts 0-2 (0-2) /LPF Independent Interpretation I performed an independent interpretation of an: Ultrasound and CT Scan Radiology Impression Discussion of test interpretation with radiology: I have reviewed the radiologist's reading. Critical Care Time Critical Care Time Critical Care Time: Yes Total Critical Care Time: 35 Attestation: I attest to this time spent taking care of the patient, obtaining history, physical, reviewing labs, imaging, speaking to my attending, speaking to specialist. Discharge Plan Discharge Clinical Impression: Urinary retention, Hematuria Patient Disposition: Home, Self-Care Instructions: Urinary Retention in Men (ED), Hematuria (ED) Additional Instructions: Take your medications as prescribed. If you were prescribed antibiotics today, it is important that you take your medication to their entirety, do not skip any doses, do not finish them early. Follow-up with your primary care provider this week. Return to the emergency department with new or worsening symptoms. Such as fevers, chills, chest pain, shortness of breath, nausea, vomiting, dizziness, headache, vision changes, lethargy In case of emergency call 911 Follow-up with urology as soon as possible. Return if you noticed blood clots with an your urinary catheter bag. Or dark red blood. Prescriptions: New cefdinir 300 mg capsule 300 mg PO BID 5 Days Qty: 10 0RF No Action cholecalciferol (vitamin D3) 125 mcg (5,000 unit) capsule 125 mcg PO DAILY Qty: 30 5RF simvastatin 40 mg tablet 40 mg PO QPM lisinopril 20 mg tablet 20 mg PO DAILY alfuzosin 10 mg tablet extended release 24 hr 10 mg PO DAILY 90 Days Qty: 90 0RF Rx Instructions: administer after the same meal each day finasteride 5 mg tablet 5 mg PO DAILY 90 Days Qty: 90 0RF Referrals: [facility] [place] Urology Services [Provider Group] - 1 day Stand Alone Forms: Work/School Release Print Language: Albanian
[2024-03-23 12:33] LABS: MANUAL DIFF FLAG NO
[2024-03-23 12:34] LABS: Basophils Absolute Auto 0.1 X10*3/uL (0.0-0.2); Basophils Percent Auto 0.7 % (0-2); Eosinophils Absolute Auto 0.2 X10*3/uL (0.0-0.4); Hematocrit 40.7 % (42.0-52.0); Hemoglobin 14.1 g/dl (14.0-18.0); Imm Gran Abs Auto 0.03 X10*3/uL (0.00-0.03); Imm Gran Pct Auto 0.3 % (0.0-0.4); Lymphocytes Absolute Auto 1.6 X10*3/uL (1.2-4.9); Lymphocytes Percent Auto 17.8 % (20-40); Mean Corpuscular HGB Conc 34.6 g/dl (31.0-36.0); Mean Corpuscular Hemoglobin 30.4 pg (27.0-33.0); Mean Corpuscular Volume 87.7 fL (80.0-98.0); Mean Platelet Volume 9.4 fL (9.4-12.4); Monocytes Absolute Auto 0.7 X10*3/uL (0.1-1.2); Monocytes Percent Auto 7.8 % (2-11); Neutrophils Absolute Auto 6.6 x10*3/uL (2.0-8.3); Neutrophils Percent Auto 71.4 % (45-73); Platelet Count 199 X10*3/uL (160-400); Red Blood Count 4.64 X10*6/uL (4.60-5.80); Red Cell Distribution Width 13.1 % (11.0-16.0); White Blood Count 9.2 X10*3/uL (4.8-10.8)
[2024-03-23 12:36] LABS: Appearance Urine Clear; Color Urine Yellow; Glucose Urine UA Negative (Negative); Leukocyte Esterase Urine Trace (Negative); Nitrite Urine Negative (Negative); Specific Gravity - Urine <= 1.005 (1.005-1.025); UMIC TRIGGER UACC YES; Urine Blood Negative (Negative); Urine Ketones Negative (Negative); Urine Protein Negative (Neg-Trace)
[2024-03-23 12:40] LABS: Bacteria Urine None Seen (None Seen); Hyaline Casts Urine 0-2 /LPF (0-2); RBC Urine 0-2 /HPF (0-2); Squamous Epithelial Cell Urine 0-2 /HPF (0-2); WBC Urine 0-5 /HPF (0-5)
[2024-03-23 12:52] LABS: Anion Gap 13 (12-20); Blood Urea Nitrogen 16 mg/dL (9-16); Carbon Dioxide 26 mmol/L (22-29); Chloride 108 mmol/L (96-108); Creatinine Clr Calc Pharmacy 76.8; Estimated Glomerular Filt Rate > 60; Glucose Random 104 mg/dL (60-115); Potassium 4.3 mmol/L (3.3-5.1); Sodium 143 mmol/L (135-145)
--- NOTE | 2024-03-23 12:55 | PC.NURSE ---
patient from external triage, states he went to have a CT scan today and was found to have a distended bladder and urinary retention. upon arriving to ED bladder scan completed and patient noted to have 981mL of urine in his bladder, brought patient into ED 18 to insert indwelling catheter per verbal order. patinet not complaining of any abdominal discomfort or difficulty urinating. patient states he sees a urologist for BPH and had a lot to drink this morning for his scan. patient states when he voids he feels as if he is emptying his bladder, however sometimes he feels as if he has to do it again shortly after going. patient tolerated rogers catheter placement, 16FR rogers placed and secured to leg. 1100mL of clear yellow urine immediately drained from bladder. patient moved into ED 22H after rogers placement, not offering any complaints at this time. awaiting MD wayne.
--- NOTE | 2024-03-23 13:59 | PC.NURSE ---
patient rogers bag drained of 2000mL of urine
[2024-03-23 15:51] VITALS: BP 192/93; PULSE 62; RESP 16; O2SAT 98
[2024-03-23 17:19] VITALS: BP 214/108; PULSE 68; RESP 19; TEMP 36.9; O2SAT 98
== END 2024-03-23 17:33 | disposition home or self-care (01) ==
PROVIDERS: Physician Assistant; Emergency Provider Emergency Medicine; PCP Internal Medicine
DX: R33.9 Retention of urine, unspecified (principal); R31.9 Hematuria, unspecified; R79.89 Other specified abnormal findings of blood chemistry; Z79.899 Other long term (current) drug therapy
CPT/HCPCS: 36415; 51798; 74176; 76857; 80048; 81001; 85025; 99284; 99285

== ENCOUNTER → 2024-03-23 13:13 | Outpatient (BNV) | payer MEDICARE, SELFPAY | PROVIDERS: Emergency Provider Emergency Medicine; PCP Internal Medicine; Visit Provider Radiology Diagnostic Radiology | DX: R33.9 Retention of urine, unspecified (principal) | CPT/HCPCS: 74176 ==

== ENCOUNTER 2024-04-28 10:40 | Outpatient (AMB) | payer MEDICARE, SELFPAY ==
--- NOTE | 2024-04-28 10:51 | MHC.OFFVIS ---
Intake Visit Reasons: cysto/VT Intake Note: Patient is Present for Cystoscopy/Voiding Trial ER Visit 03/23/24- [facility] Urology Med: Finasteride, Alfuzosin Antibiotic Allergy:None Blood Thinner:None Last PVR: 518ML Today PVR: 11ml URO- G Disposable Cystoscope lot: [id number] exp:11/12/2026 Keyseating Machine Set Up Operator Required: No Accompanied by: Self / Same As Patient Allergies No Known Allergies Allergy (Verified 06/08/24 11:21) HPI Comments Details: Aaron is a very pleasant male. He is a patient of Dr. Fields. He is seen for following urologic conditions - incomplete bladder emptying - elevated PVR Had been found to have 1500 cc within his bladder on imaging Catheter placed Here for voiding trial and cystoscopy On cystoscopy Has trilobar hypertrophy. Recommend GreenLight laser procedure. He had minimal symptoms from his retention. 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 Incomplete bladder emptying PVR 200 cc Feels as though he is emptying Discussed trial of medications High PVR PSA 4.7 free PSA 34% Prescriptions provided finasteride and alfuzosin Three-month follow-up [facility] Medical History Hyperparathyroidism Surgical History Hx of cystoscopy Hx of colonoscopy Family History Father Parkinsons Mother Alzheimer disease Social History Household Members: Spouse Household Members Other:: Alcohol intake: current Alcohol intake frequency: does not drink Patient Tobacco Use Status: Never used Tobacco Review of Systems Const Denies chills and Denies fever(s) Card Reports no additional complaints and Denies syncope Resp Denies cough GI Denies abdominal pain and Denies heartburn Reports as per HPI and Denies change in libido Neuro Denies syncope Psych Denies change in libido Endo Denies change in libido Physical Exam Const General: cooperative, healthy appearing, comfortable and no acute distress Orientation/consciousness: patient oriented x3 HEENT Face and sinus: Yes normal facial exam Mouth: moist mucous membranes Neck Neck: Yes normal visual inspection, Yes full ROM and Yes trachea midline Chest Chest palpation & inspection: normal inspection of the chest Resp Effort & Inspection: normal respiratory effort, able to speak in complete sentences and no respiratory distress GI Inspection: Yes normal to inspection Back/Spine/Pelvis Cervical Spine: normal cervical lordosis Thoracic/Lumbar Spine: thoracic and lumbar spine normal to inspection Skin General skin exam: no rashes or lesions noted Neuro General: patient oriented x3, gait normal, tone normal and moves all extremities Extrem General: Yes normal to inspection and Yes capillary refill normal Office Procedures Cystoscopy Consent Discussed risk and benefit or proposed procedure with the patient. Information consent for procedure given to the patient. Discussed technical aspects, risks, benefits and alternatives in full. Addressed all of the patient's questions and concerns regarding the procedure. The patient demonstrated knowledge and understanding. They wish to proceed with this procedure. Preparation The patient was prepped in the usual manner. A patient relations coordinator was present and in the room. Genitalia was prepped with betadine solution in a sterile manner. Lidocaine Jelly 2% was placed into the urethra and 16Fr flexible Olympus cystoscope was inserted into the meatus after adequate lubrication. Procedure Cystoscopy performed using a disposable Urovue digital 16 Faroese cystoscope. 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 02983-Vocaytzvxr DISPOSABLE SCOPE URO-G FLEXIBLE SCOPE Procedure code (CPT) selection complete Post Void Residual Post Residual Void Post Void Residual (PVR): 11 53538-Zcyh Void Residual by ultrasound Office Meds lidocaine HCl 2 % mucosal jelly in applicator Performing Provider: Casa Valladares MD Performing Location: [facility] Administered by: Mayur Green LPN on 04/28/24 11:11 Dose Route Admin Location Dispensed Lot Number Expiration Date [facility] Food Quality Technician 10 mL intra-urethral 10 mL nitrofurantoin monohydrate/macrocrystals 100 mg capsule Performing Provider: Casa Valladares MD Performing Location: [facility] Administered by: Mayur Green LPN on 04/28/24 11:11 Dose Route Admin Location Dispensed Lot Number Expiration Date [facility] Food Quality Technician 100 mg PO 1 cap naproxen 500 mg tablet Performing Provider: Casa Valladares MD Performing [facility] Administered by: Mayur Green LPN on 04/28/24 11:11 Dose Route Admin Location Dispensed Lot Number Expiration Date [facility] Food Quality Technician 500 mg PO 1 tab Assessment & Plan Assessment & Plan (1) Incomplete emptying of bladder due to benign prostatic hyperplasia: Code(s): N40.1 - Benign prostatic hyperplasia with lower urinary tract symptoms; R33.9 - Retention of urine, unspecified Category: Medical Plan Six week follow-up PVR Orders: Orders AMB Cystoscopy 04/28/24 N40.1 - Benign prostatic hyperplasia with lower urinary tract symptoms, R33.9 - Retention of urine, unspecified AMB Post Void Residual by ultrasound 04/28/24 N40.1 - Benign prostatic hyperplasia with lower urinary tract symptoms, R33.9 - Retention of urine, unspecified Patient Instructions: Imaging studies, laboratory and physical exam results were discussed and reviewed in detail. No major barriers to patient understanding were identified. An opportunity to ask questions regarding the treatment plan was provided. All questions were answered. The patient expressed understanding and agreement with the above treatment plan. The patient is aware they should contact our office by phone for worsening of their current condition or the appearance of new urologic symptoms. Compliance is encouraged with any medications and followup testing that is ordered. It is a privilege to participate in the urologic care of your patient. If you have any questions or concerns regarding treatment for the above conditions, or other urologic issues, please do not hesitate to contact me. The office telephone contact is [phone]. This note is constructed using voice recognition software. While every effort has been made to ensure accuracy cargo checker errors may have been included. Yours sincerely, Dr Casa Valladares MD, JO ANN [facility] - Urology Providers of Expert, Compassionate Care for the Genitourinary System Coding Level of Care Code Est Pt Level 3 (70035) Diagnoses Incomplete emptying of bladder due to benign prostatic hyperplasia N40.1; R33.9 CPT Codes Cystoscopy - CPT: 95626-Cztknstijk ([id number]) Post Residual Void - PVR CPT Code: 48357-Blhf Void Residual by ultrasound ([id number])
== END 2024-04-28 12:10 | disposition home or self-care (01) ==
PROVIDERS: PCP Internal Medicine; Visit Provider Urology
DX: N40.1 Benign prostatic hyperplasia with lower urinary tract symptoms (principal); R33.9 Retention of urine, unspecified
CPT/HCPCS: 52000; 99213

== ENCOUNTER → 2024-04-28 10:40 | Outpatient (BNVA) | payer MEDICARE, SELFPAY | PROVIDERS: PCP Internal Medicine; Visit Provider Urology | DX: R31.9 Hematuria, unspecified (principal); N40.1 Benign prostatic hyperplasia with lower urinary tract symptoms; R33.8 Other retention of urine; Z79.899 Other long term (current) drug therapy | CPT/HCPCS: 51798; 52000; 99212 ==

== ENCOUNTER 2024-05-07 09:24 | Outpatient (REF) | payer MEDICARE, SELFPAY ==
[2024-05-07 11:34] LABS: Appearance Urine Turbid; Color Urine Yellow; Glucose Urine UA Negative (Negative); Leukocyte Esterase Urine Large (3+) (Negative); Nitrite Urine Negative (Negative); UMIC TRIGGER UA YES; Urine Blood Small (1+) (Negative); Urine Ketones Negative (Negative); Urine Protein Trace mg/dL (Neg-Trace)
[2024-05-07 11:52] LABS: Bacteria Urine 1+ (None Seen); Hyaline Casts Urine 0-2 /LPF (0-2); RBC Urine 0-2 /HPF (0-2); Squamous Epithelial Cell Urine 0-2 /HPF (0-2); WBC Urine >50 /HPF (0-5)
== END 2024-05-07 09:25 | disposition home or self-care (01) ==
LOC: HO.LAB 09:24
PROVIDERS: PCP Internal Medicine; Visit Provider Urology
DX: N40.1 Benign prostatic hyperplasia with lower urinary tract symptoms (principal); R33.9 Retention of urine, unspecified; R82.79 Other abnormal findings on microbiological examination of urine
CPT/HCPCS: 81001; 87086; 87088; 87186

== ENCOUNTER 2024-06-08 11:10 | Outpatient (AMB) | payer MEDICARE, SELFPAY ==
--- NOTE | 2024-06-08 11:19 | MHC.OFFVIS ---
Intake Visit Reasons: 6W PVR Intake Note: Patient is present for pvr follow up Urology Med: Finasteride, Alfuzsoin Antibiotic Allergy: None Blood Thinner: none Hemoglobin A1C- 12/26/23 - 5.9 PSA- 12/26/23- 4.51 Last PVR: 11ML Today PVR: 456ml Patient states that he does not feel like his bladder is full denies any pain or pressure. States that he does void well during the day Search Planner Required: No Accompanied by: Self / Same As Patient Allergies No Known Allergies Allergy (Verified 06/08/24 11:21) HPI Comments Details: Aaron is a very pleasant male. He is a patient of Dr. Fields. He is seen for following urologic conditions - incomplete bladder emptying - elevated PVR Discussion regarding procedure Has been double voiding Found information online from physical therapist about voiding positions to relax pelvic floor Discussed use of squatty potty He would like to be reexamined in six-month On cystoscopy Has trilobar hypertrophy. Recommend GreenLight laser procedure. He had minimal symptoms from his retention. 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 Incomplete bladder emptying PVR 200 cc Feels as though he is emptying Discussed trial of medications High PVR PSA 4.7 free PSA 34% Prescriptions provided finasteride and alfuzosin Three-month follow-up [facility] Medical History Hyperparathyroidism Surgical History Hx of cystoscopy Hx of colonoscopy Family History Father Parkinsons Mother Alzheimer disease Social History Household Members: Spouse Household Members Other:: Alcohol intake: current Alcohol intake frequency: does not drink Patient Tobacco Use Status: Never used Tobacco Review of Systems Const Denies chills and Denies fever(s) Card Reports no additional complaints and Denies syncope Resp Denies cough GI Denies abdominal pain and Denies heartburn Reports as per HPI and Denies change in libido Neuro Denies syncope Psych Denies change in libido Endo Denies change in libido Physical Exam Const General: cooperative, healthy appearing, comfortable and no acute distress Orientation/consciousness: patient oriented x3 HEENT Face and sinus: Yes normal facial exam Mouth: moist mucous membranes Neck Neck: Yes normal visual inspection, Yes full ROM and Yes trachea midline Chest Chest palpation & inspection: normal inspection of the chest Resp Effort & Inspection: normal respiratory effort, able to speak in complete sentences and no respiratory distress GI Inspection: Yes normal to inspection Back/Spine/Pelvis Cervical Spine: normal cervical lordosis Thoracic/Lumbar Spine: thoracic and lumbar spine normal to inspection Skin General skin exam: no rashes or lesions noted Neuro General: patient oriented x3, gait normal, tone normal and moves all extremities Extrem General: Yes normal to inspection and Yes capillary refill normal Office Procedures Post Void Residual Post Residual Void Post Void Residual (PVR): 456 [id number]-Ryxz Void Residual by ultrasound Assessment & Plan Assessment & Plan (1) Incomplete emptying of bladder due to benign prostatic hyperplasia: Code(s): N40.1 - Benign prostatic hyperplasia with lower urinary tract symptoms; R33.9 - Retention of urine, unspecified Category: Medical Plan Try pelvic floor relaxation Otherwise follow-up for procedure Orders: Orders AMB Post Void Residual by ultrasound Today N40.1 - Benign prostatic hyperplasia with lower urinary tract symptoms, R33.9 - Retention of urine, unspecified Patient Instructions: Imaging studies, laboratory and physical exam results were discussed and reviewed in detail. No major barriers to patient understanding were identified. An opportunity to ask questions regarding the treatment plan was provided. All questions were answered. The patient expressed understanding and agreement with the above treatment plan. The patient is aware they should contact our office by phone for worsening of their current condition or the appearance of new urologic symptoms. Compliance is encouraged with any medications and followup testing that is ordered. It is a privilege to participate in the urologic care of your patient. If you have any questions or concerns regarding treatment for the above conditions, or other urologic issues, please do not hesitate to contact me. The office telephone contact is [phone]. This note is constructed using voice recognition software. While every effort has been made to ensure accuracy footwear machinery instructor errors may have been included. Yours sincerely, Dr Casa Valladares MD, JO ANN [facility] - Urology Providers of Expert, Compassionate Care for the Genitourinary System Coding Level of Care Code Est Pt Level 3 (76164) Diagnoses Incomplete emptying of bladder due to benign prostatic hyperplasia N40.1; R33.9 CPT Codes Post Residual Void - PVR CPT Code: 92518-Wuvv Void Residual by ultrasound ([id number])
== END 2024-06-08 12:00 | disposition home or self-care (01) ==
LOC: HO.HUSH 11:10
PROVIDERS: PCP Internal Medicine; Visit Provider Urology
DX: N40.1 Benign prostatic hyperplasia with lower urinary tract symptoms (principal); R33.9 Retention of urine, unspecified
CPT/HCPCS: 99213

== ENCOUNTER → 2024-06-08 11:10 | Outpatient (BNVA) | payer MEDICARE, SELFPAY | PROVIDERS: PCP Internal Medicine; Visit Provider Urology | DX: N40.1 Benign prostatic hyperplasia with lower urinary tract symptoms (principal); N13.8 Other obstructive and reflux uropathy; R33.9 Retention of urine, unspecified | CPT/HCPCS: 51798; 99212 ==

== ENCOUNTER 2024-07-05 12:36 | Outpatient (REF) | payer MEDICARE, SELFPAY ==
[2024-07-05 13:21] LABS: Estimated Average Glucose 120 mg/dL; Hemoglobin A1C 143.2682 umol/L; Hemoglobin A1c % 5.8 % (<6.0); Total Hemoglobin (HGBA1C) 3613.6325 umol/L
[2024-07-05 13:23] LABS: Alanine Aminotransferase 34 U/L (0-40); Albumin Level 4.6 g/dL (3.5-5.0); Alkaline Phosphatase 53 U/L (39-117); Aspartate Amino Transferase 25 U/L (5-37); Bilirubin Direct 0.2 mg/dL (0.0-0.5); Bilirubin Total 0.6 mg/dL (0.0-1.0); Cholesterol 136 mg/dL (<200); Glucose Fasting 102 mg/dL (60-99); HDL Cholesterol 40 mg/dL (>40); LDL Cholesterol Calculated 60 mg/dL (<100); Total Protein 7.3 g/dL (6.5-8.0); Triglycerides 180 mg/dL (<150)
[2024-07-05 14:33] LABS: Reflex LDLD? No
== END 2024-07-05 12:37 | disposition home or self-care (01) ==
LOC: HO.LNP 12:36
PROVIDERS: Visit Provider Internal Medicine
DX: E78.00 Pure hypercholesterolemia, unspecified (principal); E11.9 Type 2 diabetes mellitus without complications
CPT/HCPCS: 80061; 80076; 82947; 83036

== ENCOUNTER 2024-09-17 12:53 | Outpatient (REF) | payer MEDICARE, SELFPAY ==
--- NOTE | ~2024-09-17 | US_ITS ---
CLINICAL HISTORY: BPH, PROTATISM US RENAL Comparison: None Findings: Right kidney measures 13.1 cm in length. Left kidney measures 12.9 cm in length. Bilateral moderate hydronephrosis persists after bladder emptying. Bilateral hydroureter also observed. No cortical mass lesion or definite shadowing calculus. Urinary bladder wall appears trabeculated. Prevoid volume 1325 mL. Postvoid volume was not obtained. Bilateral ureteral jets are not well visualized. IMPRESSION: 1. Moderate bilateral hydroureteronephrosis. This document has been electronically signed by: Asia Vera DO on 09/17/2024 16:34:14
--- OUTSIDE RECORDS SUMMARY | 2024-09-17 13:16 | XMS_ITS | Encounter Summary ---
Author Organization [employer] Address [address] [place] [address] Care Team Providers Care Automatic Buffing Wheel Former Name Role Phone Unavailable Primary Care Provider Unavailabl e Encounter Details Date Type Department Care Team (Latest Contact Info) Description 04/18/2022 Abstract [facility] CONVERSIONS Dental, Provider, DDS Social History Tobacco Use Types Packs/Day Years Used Date Smoking Tobacco: Never Assessed Sex and Gender Information Value Date Recorded Sex Assigned at Male 06/03/2022 10:29 AM EDT Legal Sex Male 10:29 AM EDT Gender Identity Male 06/03/2022 10:29 AM EDT Sexual Orientation Straight 06/03/2022 10 :29 AM EDT documented as of this encounter Plan of Treatment Upcoming Encounters Date Type Department Care Team (Late st Contact Info) Description 12/06/2024 9:00 AM EDT Office Visit [facility] [address] [place] [address] Winifred Jimenez [address] [place] [address] documented as of this encounter Visit Diagnoses Not on filedocumented in this encounter
--- OUTSIDE RECORDS SUMMARY | 2024-09-17 13:16 | XMS_ITS | Encounter Summary ---
Author Organization [employer] Address [address] [place] [address] Care Team Providers Care Engine Maintenance Mechanic Name Role Phone Unavailable Primary Care Provider Unavailabl e Encounter Details Date Type Department Care Team (Latest Contact Info) Description 04/24/2021 Abstract [facility] CONVERSION[facility] Dental, Provider, DDS Social History [...] Description 12/06/2024 9:00 AM EDT Office Visit [facility] [address] [place] [address] Winifred Jimenez [address] [place] [address] documented as of this encounter Visit Diagnoses Not on filedocumented in this encounter
--- OUTSIDE RECORDS SUMMARY | 2024-09-17 13:16 | XMS_ITS ---
Author Organization Moses Fields MD Address [address] [place], [place] [id number] Care Team Providers Care Lease Broker Name Role Phone Moses Fields Primary Care Provider [phone] Allergies No Known Allergies REASON FOR VISIT 1 month Medications Medication SIG (Take, Route, Frequency, Duration) Notes Start Date End Date Status Lisinopril 20 MG TAKE 1 TABLET BY LYNN TH TWICE DAILY EVERY DAY Active Simvastatin 40 MG TAKE 1 TABLET BY LYNN TH EVERY EVENING Active Finasteride 5 MG take 1/2 tablet Oral Once a day for 30 days Not-Josias g Lisinopril-hydroCHLOROth iazide 20-12.5 MG TAKE 1 TABLET BY MOUTH EVERY DAY Orally Once a day for 90 days Not-Taking Aspirin Adult Low Strength 81 MG 0.5tablet Orally every other day Active Alfuzosin HCl ER 10 MG 1 tablet immediat kat[place] after the same meal Orally Once a day for 30 day(s) Active Finasteride 5 MG 1 tablet Orally Once a day Active Immunizations Vaccine Route Administration Date Status Comme nts Fluarix Quadrivalent - 150 IM Intramuscular 06/11/2024 Adm inistered Vital Signs Blood pressure systolic 152 mm Hg 06/11/20 24 Blood pressure diastolic 84 mm Hg 024 Height 73 in 06/11/2024 Weight 234 lbs 06/11/2024 BMI 30.87 kg/m2 06/11/2024 Encounters Encounter Location Date Provider Diagnosis Moses Fields MD [address] [place] [id number] 06/11/2024 Moses Fields Essential hypertension I10 ; Prostatism N40.0 and Encounter for immunization Z23 Assessments Encounter Date Diagnosis (ICD Code) Assessment Notes Treatment Notes Treatment Clinical Notes Section Notes 06/11/2024 Essential hypertension (ICD-10 - I10) is a little high,will continue current regiment and will continue to monitor 06/11/2024 Prostatism (ICD-10 - N40.0) needs us kidney and bladder with postvoid residual in 3 months, will continue current regiment 06/11/2024 Encounter for immunization (ICD-10 - Z23) flu vaccine adminstered Plan Of Treatment Medication Medication Name Sig Start Date Stop Date Notes Lisinopril 20 MG TAKE 1 TABLET BY TWICE DAILY EVERY DAY Finasteride 5 MG 1 tablet Orally Once a day Treatment Notes Assessment Notes Essential hypertension is a little high, will continue current regiment and will continue to monitor Prostatism needs us kidney and bladder with postvoid residual in 3 months, will continue current regiment Encounter for immunization flu vaccine a dminstered Future Test Test Name Order Date US RENAL BILATERAL 09/11/2024 Next Appt Details Follow Up: 3 Months, Reason: Provider Name:Moses valdivia, 12/30/2024 08:00:00 AM, [address] [place] [address], [place] [address], [place], [place], [phone], Provider Name:Moses valdivia, 01/06/2025 08:30:00 AM, [address] [place] [address], [place] [address], [place], [place], [phone], Progress Notes * BALA WILSONDOB:1950 (74 yo M)Acc No.[id number]:06/11/2024 Progress Notes Patient:?BALA WILSON Provider:?Moses Fields MD :1950???Age:74 Y???Sex:Male Deric e:06/11/2024 Address: [address]ie[address], [facility], [facility] Subjective: * Chief Complaints: * ???1 month * HPI: ???Symptom(s):? patient is a 74 yo male here for one month follow up. had been alternating between bag and valve. so he would not need to go to pt to learn how to urinate. residual is down to 450 from 1400 when he went to er. after his cysto his post void was only 11. * ROS:?General/Constitutional:?Denies?Chills.?Denies?Fatigue.?Denies?Fever.?Denies?Headache.?ENT:?Patient denies?decreased sense of smell , any loss of taste , sore throat.?Denies?Sore throat.?Respiratory:?Denies?Cough.?Denies?Shortness of breath at rest.?Denies?Shortness of breath with exertion.?Gastrointestinal:?Denies?Diarrhea.?Denies?Nausea.?Musculoskeletal:?Patient denies?muscle aches.?Peripheral Vascular:?Patient denies?red and blue toes.? * Medical History:? * Surgical History:? * Hospitalization/Major Diagno stic Procedure:? * Medications:?TakingAlfuzosin HCl ER 10 MG Tablet Extended Release 24 Hour 1 tablet immediately after the same meal Orally Once a dayFinasteride 5 MG Tablet 1 tablet Orally Once a dayAspirin Adult Low Strength 81 MG Tablet Delayed Release 0.5tablet Orally every other daySimvastatin 40 MG Tablet TAKE 1 TABLET BY MOUTH EVERY EVENING Lisinopril 20 MG Tablet TAKE 1 TABLET BY MOUTH TWICE DAILY EVERY DAY Taking Alfuzosin HCl ER 10 MG Tablet Extended Release 24 Hour 1 tablet immediately after the same meal Orally Once a dayTaking Finasteride 5 MG Tablet 1 tablet Orally Once a dayTaking Aspirin Adult Low Strength 81 MG Tablet Delayed Release 0.5tablet Orally every other dayTaking Simvastatin 40 MG Tablet TAKE 1 TABLET BY MOUTH EVERY EVENING Taking Lisinopril 20 MG Tablet TAKE 1 TABLET BY MOUTH TWICE DAILY EVERY DAY Not-Taking/PRNLisinopril-hydroCHLOROthiazide 20-12.5 MG Tablet TAKE 1 TABLET BY MOUTH EVERY DAY Orally Once a dayFinasteride 5 MG Tablet take 1/2 tablet Oral Once a dayMedication List reviewed and reconciled with the patientNot-Taking/PRN Lisinopril-hydroCHLOROthiazide 20-12.5 MG Tablet TAKE 1 TABLET BY MOUTH EVERY DAY Orally Once a dayNot-Taking/PRN Finasteride 5 MG Tablet take 1/2 tablet Oral Once a dayMedication List reviewed and reconciled with the patient * Allergies:?N.K.D.A.yes[Aller gies Verified] Objective: * Vitals:?Ht: 73, Wt:234, BMI: 30.87, BP:152/84, Repeat BP:138/90. * Examination: ???General Examination: ?GENERAL APPEARANCE:?well developed, well nourished.?HEAD:?normocephalic.?SKIN:?good turgor.?HEART:?no murmurs, rubs, gallops , regular rate and rhythm.?LUNGS:?no wheezes, rales, rhonchi , good air movement , clear to auscultation bilaterally.? Assessment: * Assessment: 1.?Essential hypertension - I10 (Primary)?2.?Prostatism - N40.0?3.?Encounter for immunization - Z23? Plan: * Treatment: 2.?Prostatism? Continue Finasteride Tablet, 5 MG, 1 tablet, Orally, Once a day.?Imaging: US RENAL BILATERAL (Ordered for 09/11/2024) Notes: needs us kidney and bladder with postvoid residual in 3 months, will continue current regiment??3.?Encounter for immunization? Notes: flu vaccine adminstered?? * Immunizations:? Fluarix Quadrivalent - 150 : 0.5 mL (Dose No:1) (Route: Intramuscular) given by Fany Pro on Left Deltoid * Procedure Codes:?64375 FLU V ACCINE NO PRESERV 3 & >G0008 ADMN FLU VAC NO FEE SCHED SAME DAY * Preventive Medicine:? ??Immunizations:?Influenza?Have you had a flu shot since the most recent April 04??Yes.? * Follow Up:?3 Months * * Sign off status: Completed true * Provider:?Moses Fields MD Date:?1 08/11/2023 Generated for Darek major/Clayton/Raheemsmitting on:?09/17/2024 01:16 PM EST History and Physical Notes * HPI (History of Present Illness) Category Sub-Category Detail Notes Category Not es Symptom(s) patient is a 74 yo male here for one month follow up. had been alternating between bag and valve. so he would not need to go to pt to learn how to urinate. residual is down to 450 from 1400 when he went to er. after his cysto his post void was only 11 Examination Category Sub-Category Detail Notes Category Not es General Examination GENERAL APPEARANCE: well developed , well nourished HEAD: normocephalic HEART: no murmurs, rubs, ga llops , regular rate and rhythm LUNGS: no wheezes, rales, r honchi , good air movement , clear to auscultation bilaterally SKIN: good turgor
--- OUTSIDE RECORDS SUMMARY | 2024-09-17 13:16 | XMS_ITS | Clinical Summary ---
Author Organization [employer] Address [address] [place] [address] 7[address] [place] [address] Care Team Providers Care Director Of Restaurant Name Role Phone Unavailable Primary Care Provider Unavailabl e Allergies No known active allergies Medications lisinopril 20 MG tablet Take 1 tablet by mouth at bed time. Active simvastatin (Zocor) 40 MG tablet Take 40 mg by mouth at bedtime. 04/07/2022 Active aspirin 81 MG EC tablet Take 81 mg by mouth in the morning. Active simvastatin (Zocor) 40 MG tablet Take 1 tablet by mouth at bedtime. Active lisinopril 20 MG tablet daily. 08/30/2022 Active lisinopril-hydro CHLOROthiazide 20-12.5 MG tablet Take 1 tablet by mouth in the morning. Active Social History Tobacco Use Types Packs/Day Years Used Date Smoking Tobacco: Never Smokeless Tobacco: Never Tobacco Cessation:Counseling Given: Not Answered Sex and Gender Information Value Date Recorded Sex Assigned at Male 06/03/2022 10:29 AM EDT Legal Sex Male 10:29 AM EDT Gender Identity Male 06/03/2022 10:29 AM EDT Sexual Orientation Straight 06/03/2022 10 :29 AM EDT Last Filed Vital Signs Vital Sign Reading Time Taken Comments Blood Pressure 130/69 05/26/2024 2:20 PM EDT Pulse 60 05/26/2024 2:20 PM EDT Temperature - - Respiratory Rate - - Oxygen Saturation - - Inhaled Oxygen Concentration - - Weight - - Height - - Body Mass Index - - Plan of Treatment Upcoming Encounters Date Type Department Care Team (Late st Contact Info) Description 12/06/2024 9:00 AM EDT Office Visit [facility] [address] [place], [place] [phone] Mohamud Jimenezine [address] [place], [place] [phone] Health Maintenance Due Date Last Done Comments CT Colonography 1950 Colonoscopy 1950 Dental X-Ray: Full Mouth 1950 Depression Screening 1950 FIT 1950 FOBT 1950 Lipid Panel 1950 SDOH Screening 1950 Sigmoidoscopy 1950 Alcohol/Substance Use Screening 1963 Hepatitis C Screening 1969 DTaP/Tdap/Td Vaccines (1 - Tdap) 1970 Zoster Vaccines (1 of 2) 2001 COVID-19 Vaccine (5 - season) 2024 06/25/2021, 10/26/2020, 09/29/2020, Additional history exists Influenza Vaccine (#1) 2024 , 05/31/2022, 05/21/2021, Additional history exists Dental Oral Exam 11/25/2024 05/26/2024, 10/14/2022 Dental Prophylaxis 11/25/2024 05/26/2024, 0 10/08/2023, 10/14/2022 Colorectal Cancer Screening 01/15/2025 FIT DNA/Cologuard 01/15/2025 01/15/2022 Tobacco Screening 05/26/2025 05/26/2024 Dental X-Ray: Bitewings 05/27/2025 05/26/20, 02/13/2023, 10/14/2022 RSV Patients and Patients Aged 60 years or older (1 - 1-dose 75+ series) 2026 Pneumococcal Vaccine: 50+ Years Completed 12/21/2020, 08/12/2017 HIB Vaccines Aged Out No longer eligi ble based on patient's age to complete this topic HPV Vaccines Aged Out No longer eligi ble based on patient's age to complete this topic Hepatitis A Vaccines Aged Out No long er eligible based on patient's age to complete this topic Hepatitis B Vaccines Aged Out No long er eligible based on patient's age to complete this topic IPV Vaccines Aged Out No longer eligi ble based on patient's age to complete this topic Meningococcal Vaccine Aged Out No camacho gui eligible based on patient's age to complete this topic RSV under 20 months Aged Out No longe r eligible based on patient's age to complete this topic Rotavirus Vaccines Aged Out No longer eligible based on patient's age to complete this topic Procedures Procedure Name Priority Date/Time Associated Diagnosis Comments PROPHYLAXIS - ADULT Routine 05/26/2024 2 :00 PM EDT BITEWINGS - 4 RADIOGRAPHIC IMAGES Routine 05/26/2024 2:00 PM EDT PERIODIC ORAL EVALUATION - ESTABLISHED PATIENT Routine 05/26/2024 2:00 PM EDT from Last 3 Months or Most Recently Relevant to Health Maintenance Insurance DENTAL - [facility] PPO
--- OUTSIDE RECORDS SUMMARY | 2024-09-17 13:16 | XMS_ITS ---
Author Organization Moses Fields MD Address [address] [place], [place] [phone] Care Team Providers Care Plastic Top Assembler Name Role Phone Moses Fields Primary Care Provider Results Component Value Reference Range Notes Liver Panel Reviewed date:07/05/2024 05:21:28 PM Interpretation: Performing Lab:[facility], [address] [place] [address] Notes/Report: Bilirubin Total 0.6 0.0-1.0 mg/dL Bilirubin Direct 0.2 0.0-0.5 mg/dL Aspartate Amino Transferase 25 5-37 U/L Alanine Aminotransferase 34 0-40 U/L Total Protein 7.3 6.5-8.0 g/dL Albumin Level 4.6 3.5-5.0 g/dL Alkaline Phosphatase 53 39-117 U/L Glucose Fasting Reviewed date:07/05/2024 05:21:06 PM Interpretation: Performing Lab:[facility], [address] [place] [phone] Notes/Report: Glucose Fasting 102 60-99 mg/dL A fasting glucose from 100-125 mg/dl is considered impaired (pre-diabetes). Lipid Panel with Reflex Reviewed date:07/05/2024 05:21:18 PM Interpretation: Performing Lab:[facility], [address] [place] [phone] Notes/Report: Triglycerides 180 <150 mg/dL Desirable Triglyceride: less than 150 mg/dL Borderline High Triglyceride 150-199 mg/dL High Triglyceride: 200-499 mg/dL Very High Triglyceride: greater than or equal to 5OO mg/dL Cholesterol 136 <200 mg/dL Desirable Cholesterol: less than 200 mg/dL Borderline High Cholesterol: 200-239 mg/dL High Cholesterol: greater than 239 mg/dL LDL Cholesterol Calculated 60 <100 mg/dL Desirable LDL: less than 100 mg/dL Near Optimal/Above Optimal LDL: 110-129 mg/dL Borderline High LDL: 130-159 mg/dL High LDL: 160-189 mg/dL Very High LDL: greater than or equal to 190 mg/dL HDL Cholesterol 40 >40 mg/dL Desirable HDL: greater than 40 mg/dL Note: This HDL assay may give artificially low results in patients with liver disease. Hemoglobin A1c Reviewed date:07/05/2024 05:18:49 PM Interpretation: Performing Lab:[facility], [address] [place] [phone] Notes/Report: Hemoglobin A1c % 5.8 <6.0 % Hemoglobin A1C Reference Range Adults: 4.8 - 6.0 % Non diabetic: < 6.0 % Goal: < 7.0 % Additional Action Suggested: > 8.0 % Note: Hemoglobin A1c results are invalid for patients with abnormal amounts of HbF. Blood transfusions may impact the HbA1c concentration in the patient sample. Estimated Average Glucose 120 eAG = Estimated average glucose which is %A1C expressed as average glucose, using the formula of the T3K-Eidfind Average Glucose study (ADAG), Diabetes Care, Vol.31,#8, Mar. 2007 REASON FOR VISIT FASTING LIPIDS Encounters Encounter Location Date Provider Diagnosis Moses Fields MD [address] [place] [address] Drive [address] [place], [place] [phone] 07/05/2024 Moses Fields Pure hypercholestero lemia E78.00 and Type 2 diabetes mellitus without complication, without long-term current use of insulin E11.9 Assessments Encounter Date Diagnosis (ICD Code) Assessment Notes Treatment Notes Treatment Clinical Notes Section Notes 07/05/2024 Pure hypercholesterolemia (ICD-10 - E78.00) 07/05/2024 Type 2 diabetes phillip itus without complication, without long-term current use of insulin (ICD-10 - E11.9) Plan Of Treatment Next Appt Details Provider Name:Moses Lynn ier, 12/30/2024 08:00:00 AM, [address], [address], [place], [place], [phone], Provider Name:Moses Lynn ier, 01/06/2025 08:30:00 AM, [address], [address], [place], [place], [phone], Progress Notes * BALA WILSONDOB:1950 (74 yo M)Acc No.[id number]:07/05/2024 Progress Note Patient:?BALA WILSON Provider:?Moses Fields MD :1950???Age:74 Y???Sex:Male Deric e:07/05/2024 Address: [address], [facility], [facility], [id number] Subjective: * Chief Complaints: * ???1. FASTING LIPIDS. * Medical History:? Objective: * Vitals:? Assessment: * Assessment: 1.?Pure hypercholesterolemia - E78.00 (Primary)???2.?Type 2 diabetes mellitus without complication, without long-term current use of insulin - E11.9??? Plan: * Treatment: 2.?Type 2 diabetes mellitus without complication, without long-term current use of insulin?LAB: Liver Panel (Collection Date & Time - 07/05/2024 07:30 AM) ?LAB: Glucose Fasting (Collection Date & Time - 07/05/2024 07:30 AM) ?LAB: Lipid Panel with Reflex (Collection Date & Time - 07/05/2024 07:30 AM) ?LAB: Hemoglobin A1c (Collection Date & Time - 07/05/2024 07:30 AM) * Procedure Codes:?62266 VENIP UNCT, ROUTINE* * * The named appointment provid er may or may not be the originator of this progress note, and it is not deemed complete until electronically signed by the appointment provider. Sign off status: Pending * Provider:?Moses Fields MD Date:?1 09/05/2023 Generated for Darek major/Clayton/Radha on:?09/17/2024 01:15 PM EST
--- OUTSIDE RECORDS SUMMARY | 2024-09-17 13:16 | XMS_ITS ---
Author Organization Moses Fields MD Address [address] [place], [place] [phone] Care Team Providers Care Bookmaker'S Clerk Name Role Phone Moses Fields Primary Care Provider REASON FOR VISIT Bilateral Renal US due Encounters Encounter Location Date Provider Diagnosis Moses Fields MD [address] [place] [phone] 09/02/2024 Moses Fields Plan Of Treatment Next Appt Details Provider Name:Moses valdivia, 12/30/2024 08:00:00 AM, [address] [place] [address], Suite [facility], [place], [place], [phone], Provider Name:Moses valdivia, 01/06/2025 08:30:00 AM, [address] [place] [address], Suite [facility], [place], [place], [phone], Progress Notes * BALA WILSONDOB:1950 (74 yo M)Acc No.[id number]:09/02/2024 Patient:?BALA WILSON :1950???Age:74 Y???Sex:Male Address: [address], [place], [address] * * Date:?
--- OUTSIDE RECORDS SUMMARY | 2024-09-17 13:16 | XMS_ITS | Encounter Summary ---
Author Organization [employer] Address [address] [place] [address] Care Team Providers Care Pressure Steamer Tender Name Role Phone Unavailable Primary Care Provider Unavailabl e Encounter Details Date Type Department Care Team (Late st Contact Info) Description 07/01/2022 Abstract [facility] [address] [place] [address] Dental, Provider, DDS Social History Tobacco Use [...] Description 12/06/2024 9:00 AM EDT Office Visit [facility] [address] [place] [address] Winifred Jimenez [address] [place] [phone] documented as of this encounter Procedures Procedure Name Priority Date/Time Associated Diagnosis Comments 20 PONTIC - PORCELAIN FUSED TO TITANIUM AND TITANIUM ALLOYS Routine 07/01/2022 12:00 AM EST 6 ENDODONTIC ENDOSSEOUS IMPLANT Routine 07/01/2022 12:00 AM EST 29 ENDODONTIC ENDOSSEOUS IMPLANT Routine 07/01/2022 12:00 AM EST 30 ENDODONTIC ENDOSSEOUS IMPLANT Routine 07/01/2022 12:00 AM EST 14 ABUTMENT SUPPORTED PORCELAIN FUSED TO METAL CROWN (HIGH DIXON METAL) Routine 07/01/2022 12:00 AM EST 12 ABUTMENT SUPPORTED PORCELAIN FUSED TO METAL CROWN (HIGH DIXON METAL) Routine 07/01/2022 12:00 AM EST 21 ABUTMENT SUPPORTED PORCELAIN FUSED TO METAL CROWN (HIGH DIXON METAL) Routine 07/01/2022 12:00 AM EST 19 ABUTMENT SUPPORTED PORCELAIN FUSED TO METAL CROWN (HIGH DIXON METAL) Routine 07/01/2022 12:00 AM EST 26 I COMPOSITE FILLING Routine 12:00 AM EST 26 D COMPOSITE FILLING Routine 12:00 AM EST 26 L COMPOSITE FILLING Routine 12:00 AM EST 26 F COMPOSITE FILLING Routine 12:00 AM EST 23 MF COMPOSITE FILLING Routine 07/01/20 12:00 AM EST 11 DL COMPOSITE FILLING Routine 07/01/20 12:00 AM EST 9 MDL COMPOSITE FILLING Routine 07/01/20 12:00 AM EST 8 MDFL COMPOSITE FILLING Routine 022 12:00 AM EST 27 DL AMALGAM FILLING Routine 07/01/2022 12:00 AM EST 16 O AMALGAM FILLING Routine 07/01/2022 12:00 AM EST 16 M AMALGAM FILLING Routine 07/01/2022 12:00 AM EST 2 MOL AMALGAM FILLING Routine 07/01/2022 12:00 AM EST 4 ROOT CANAL Routine 07/01/2022 12:00 AM EST 14 ROOT CANAL Routine 07/01/2022 12:00 AM EST 31 PFM CROWN Routine 07/01/2022 12:00 AM EST 28 PFM CROWN Routine 07/01/2022 12:00 AM EST 10 PFM CROWN Routine 07/01/2022 12:00 AM EST 5 PFM CROWN Routine 07/01/2022 12:00 AM EST 4 PFM CROWN Routine 07/01/2022 12:00 AM EST documented in this encounter Visit Diagnoses Not on filedocumented in this encounter
== END 2024-09-17 12:54 | disposition home or self-care (01) ==
LOC: HO.HMGCX 12:53
PROVIDERS: PCP Internal Medicine; Visit Provider Internal Medicine
DX: N40.0 Benign prostatic hyperplasia without lower urinary tract symptoms (principal)
CPT/HCPCS: 76775

== ENCOUNTER → 2024-09-17 12:56 | Outpatient (BNV) | payer MEDICARE, SELFPAY | PROVIDERS: PCP Internal Medicine; Visit Provider Radiology Diagnostic Radiology | DX: N13.30 Unspecified hydronephrosis (principal) | CPT/HCPCS: 76775 ==

== ENCOUNTER 2024-09-30 10:27 | Outpatient (REF) | payer MEDICARE, SELFPAY ==
--- NOTE | ~2024-09-30 | US_ITS ---
EXAMINATION: US RETROPERITONEAL COMPLETE (RENAL) CLINICAL INFORMATION: Hydroureter, prostatism. COMPARISON: Renal US 09/17/2024. CT abdomen and pelvis 03/23/2024. Bladder ultrasound 03/23/2024. TECHNIQUE: Real-time imaging of the kidneys and bladder. FINDINGS: RIGHT KIDNEY: 12.2 x 5.9 x 5.7 cm (SAG x AP x TRV). The kidney is normal in size, contour, and echogenicity. Renal cortical thickness is normal. No focal suspicious lesion. There is a lower pole 0.2 cm calculus. There is mild hydronephrosis, and hydroureter all the way to the level of the right UVJ. No definite obstructing lesion evident. LEFT KIDNEY: 13.9 x 5.5 x 7.0 cm (SAG x AP x TRV). The kidney is normal in size, contour, and echogenicity. Renal cortical thickness is normal. No calculi or focal parenchymal lesions. There is mild hydronephrosis and hydroureter all the way to the level of the left UVJ. No definite obstructing lesion evident. BLADDER: Bladder is well distended, however there is trabeculation of the bladder wall with mild bladder wall thickening, likely on the basis of long-standing outlet obstruction. Right ureteral jet was noted. The left could not be seen. Prevoid bladder volume is 1062 mL. Postvoid bladder volume is 809 mL. Prostate is significantly enlarged with estimated volume of 101 mL. Median lobe protrudes into the bladder base. US/US retroperitoneal comp IMPRESSION: 1. Bilateral mild hydronephrosis and diffuse bilateral hydroureter to the level of the bilateral UVJs. No definite obstructing lesion evident. 2. Nonobstructing 2 mm left renal calculus. 3. Urinary bladder wall is thickened and trabeculated, and there is significant post void residual of 109 mL. Findings suggest long-standing outlet obstruction. The left ureteral jet was not visualized, a nonspecific finding. 4. There is significant prostate enlargement with estimated volume of 101 mL. Electronically signed by: Nikolai Chase MD 09/30/2024 11:28 AM [facility]
--- OUTSIDE RECORDS SUMMARY | 2024-09-30 12:11 | XMS_ITS | Encounter Summary ---
Author Organization [employer] Address [address] [place] [address] Care Team Providers Care Ortho Tech Name Role Phone Unavailable Primary Care Provider Unavailabl e Encounter Details Date Type Department Care Team (Late st Contact Info) Description 07/01/2022 Abstract [facility] [address] [place] [address] Dental, Provider, DDS Social History Tobacco Use [...] Description 12/06/2024 9:00 AM EDT Office Visit [facility] [address] [place] [address] Winifred Jimenez [address] [place] [phone] documented as of this encounter Procedures Procedure [...]
--- OUTSIDE RECORDS SUMMARY | 2024-09-30 12:11 | XMS_ITS | Encounter Summary ---
Author Organization [employer] Address [address] [place] [address] Care Team Providers Care Oncology Patient Navigator Name Role Phone Unavailable Primary Care Provider Unavailabl e Encounter Details Date Type Department Care Team (Latest Contact Info) Description 04/18/2022 Abstract [facility] CONVERSIONS Dental, Provider, DDS Social History Tobacco [...] Description 12/06/2024 9:00 AM EDT Office Visit [facility] D[facility] [address] [place] [address] Winifred Jimenez [address] [place] [address] documented as of this encounter Visit Diagnoses Not on filedocumented in this encounter
--- OUTSIDE RECORDS SUMMARY | 2024-09-30 12:11 | XMS_ITS ---
Author Organization Moses Fields MD Address [address] [place], [place] [phone] Care Team Providers Care Cold Press Loader Name Role Phone Moses Fields Primary Care Provider REASON FOR VISIT Bilateral Renal US due Encounters Encounter Location Date Provider Diagnosis Moses Fields MD [address] [facility] [address] [place] [phone] 09/02/2024 Moses Fields Plan Of Treatment Next Appt Details Provider Name:Moses valdivia, 12/30/2024 08:00:00 AM, [address] [place] [address], Suite [facility], [place], [place], [phone], Provider Name:Moses valdivia, 01/06/2025 08:30:00 AM, [address] [place] [address], Suite [facility], [place], [place], [phone], Progress Notes * BALA WILSONDOB:1950 (74 yo M)Acc No.[id number]:09/02/2024 Patient:?BALA WILSON :1950???Age:74 Y???Sex:Male Address: [address], [place], [address] * true * Date:? Generated for Darek major/Clayton/Raheemsmitting on:?09/30/2024 12:10 PM EST
--- OUTSIDE RECORDS SUMMARY | 2024-09-30 12:11 | XMS_ITS | Encounter Summary ---
Author Organization [employer] Address [address] [place] [address] Care Team Providers Care Axle Turner Name Role Phone Unavailable Primary Care Provider Unavailabl e Encounter Details Date Type Department Care Team (Latest Contact Info) Description 04/24/2021 Abstract [facility] CONVERSIONS Dental, Provider, DDS Social History Tobacco [...] Description 12/06/2024 9:00 AM EDT Office Visit [facility] D[facility] [address] [place] [address] Winifred Jimenez [address] [place] [address] documented as of this encounter Visit Diagnoses Not on filedocumented in this encounter
--- OUTSIDE RECORDS SUMMARY | 2024-09-30 12:11 | XMS_ITS | Clinical Summary ---
Author Organization [employer] Address [address] [place] [address] [address]t [place] [address] Care Team Providers Care Electrical Service Technician Name Role Phone Unavailable Primary Care Provider [...] Description 12/06/2024 9:00 AM EDT Office Visit [facility] [address] [place], [place] [phone] Mohamud Jimenezine [address] [place], [place] [phone] Health Maintenance Due Date Last Done Comments [...] Relevant to Health Maintenance Insurance DENTAL - [facility] PPO
--- OUTSIDE RECORDS SUMMARY | 2024-09-30 12:11 | XMS_ITS ---
Author Organization Moses Fields MD Address [address] [place], [place] [phone] Care Team Providers Care Crane Operator Name Role Phone Moses Fields Primary Care Provider [phone] Allergies No Known Allergies REASON FOR VISIT discuss order for another bladder u/s Medications Medication SIG (Take, Route, Frequency, Duration) Notes Start Date End Date Status Finasteride 5 MG take 1/2 tablet Oral Once a day for 30 days Not-Takin g Lisinopril 20 MG TAKE 1 TABLET BY LYNN TH TWICE DAILY EVERY DAY Active Lisinopril-hydroCHLOROth iazide 20-12.5 MG TAKE 1 TABLET BY MOUTH EVERY DAY Orally Once a day for 90 days Not-Taking amLODIPine Besylate 5 MG 1 tablet Orally Once a day for 30 days 09/24/2024 Active Finasteride 5 MG 1 tablet Orally Once a day Active Alfuzosin HCl ER 10 MG 1 tablet immediat kat[place]ka after the same meal Orally Once a day for 30 day(s) Active Simvastatin 40 MG TAKE 1 TABLET BY LYNN TH EVERY EVENING Active Aspirin Adult Low Strength 81 MG 0.5tablet Orally every other day Active Problems Problem Type SNOMED Code ICD Code Onset Dates Problem Status W/U Status Risk Notes Problem [id number] Hydroureter (N13.4) Active confirmed Vital Signs Blood pressure systolic 178 mm Hg 09/24/19 25 Blood pressure diastolic 90 mm Hg 025 Height 73 in 09/24/2024 Weight 241 lbs 09/24/2024 BMI 31.79 kg/m2 09/24/2024 weight is up 7 pounds since 06-11-24 Encounters Encounter Location Date Provider Diagnosis Moses Fields MD [address] [place] [address] Drive [address] [place], [place] [phone] 09/24/2024 Moses Fields Hydroureter N13.4 ; Essential hypertension I10 and Prostatism N40.0 Assessments Encounter Date Diagnosis (ICD Code) Assessment Notes Treatment Notes Treatment Clinical Notes Section Notes 09/24/2024 Hydroureter (ICD-10 - N13.4) need us bladder and ureters with post void residual/ he is going to make appt with dr perry 09/24/2024 Essential hypertension (ICD-10 - I10) patient verbalized understnding os medication and directions for use 09/24/2024 Prostatism (ICD-10 - N40.0) pending diagnostioc testing Plan Of Treatment Medication Medication Name Sig Start Date Stop Date Notes amLODIPine Besylate 5 MG 1 tablet Orally Once a day for 30 days 09/24/2024 Treatment Notes Assessment Notes Hydroureter need us bladder and ureters with post void residual/ he is going to make appt with dr perry Essential hypertension patient verbalize d understnding os medication and directions for use Prostatism pending diagnostioc testing Pending Test Test Name Order Date RENAL US WITH BLADDER 09/24/2024 Next Appt Details Follow Up: 4 Weeks, Reason: Provider Name:Moses valdivia, 12/30/2024 08:00:00 AM, [address] [place] [address], [address], [place], [place], [phone], Provider Name:Moses valdivia, 01/06/2025 08:30:00 AM, [address] [place] [address], [address], [place], [place], [phone], Progress Notes * FABRICIO WILSON:1950 (74 yo M)Acc No.[id number]:09/24/2024 Progress Notes Patient:?BALA WILSON Provider:?Moses Fields MD :1950???Age:74 Y???Sex:Male Deric e:09/24/2024 Address: [address], [facility] Subjective: * Chief Complaints: * ???Discuss order for another bladder u/s * HPI: ???Symptom(s):?patient is a 74 yo male here to discuss bladder US, had bladder us but? they did not do a post void residual. has had no further bleeding since last year. * ROS:?General/Constitutional:?Denies?Chills.?Denies?Fatigue.?Denies?Fever.?Denies?Headache.?ENT:?Patient denies?decreased sense of smell, any loss of taste, sore throat.?Denies?Sore throat.?Respiratory:?Denies?Cough.?Denies?Shortness of breath at rest.?Denies?Shortness of breath with exertion.?Gastrointestinal:?Denies?Diarrhea.?Denies?Nausea.?Musculoskeletal:?Patient denies?muscle aches.?Peripheral Vascular:?Patient denies?red and blue toes.? * Medical History:? * Surgical History:? * Hospitalization/Major Diagno stic Procedure:? * Medications:?TakingAlfuzosin HCl ER 10 MG Tablet Extended Release 24 Hour 1 tablet immediately after the same meal Orally Once a day Aspirin Adult Low Strength 81 MG Tablet Delayed Release 0.5tablet Orally every other day Simvastatin 40 MG Tablet TAKE 1 TABLET BY MOUTH EVERY EVENING Lisinopril 20 MG Tablet TAKE 1 TABLET BY MOUTH TWICE DAILY EVERY DAY Finasteride 5 MG Tablet 1 tablet Orally Once a day Taking Alfuzosin HCl ER 10 MG Tablet Extended Release 24 Hour 1 tablet immediately after the same meal Orally Once a day Taking Aspirin Adult Low Strength 81 MG Tablet Delayed Release 0.5tablet Orally every other day Taking Simvastatin 40 MG Tablet TAKE 1 TABLET BY MOUTH EVERY EVENING Taking Lisinopril 20 MG Tablet TAKE 1 TABLET BY MOUTH TWICE DAILY EVERY DAY Taking Finasteride 5 MG Tablet 1 tablet Orally Once a day Not-Taking/PRNLisinopril-hydroCHLOROthiazide 20-12.5 MG Tablet TAKE 1 TABLET BY MOUTH EVERY DAY Orally Once a day Finasteride 5 MG Tablet take 1/2 tablet Oral Once a day Medication List reviewed and reconciled with the patientNot-Taking/PRN Lisinopril-hydroCHLOROthiazide 20-12.5 MG Tablet TAKE 1 TABLET BY MOUTH EVERY DAY Orally Once a day Not-Taking/PRN Finasteride 5 MG Tablet take 1/2 tablet Oral Once a day Medication List reviewed and reconciled with the patient * Allergies:?N.K.D.A.yes[Aller gies Verified] Objective: * Vitals:?Ht: 73, Wt: 241, BMI :31.79, BP:178/90, Repeat BP:190/100, Wt-k.32. weight is up 7 pounds since 06-11-24. * Examination: ???General Examination: ?GENERAL APPEARANCE:?alert, well hydrated, in no distress.?HEAD:?normocephalic.?SKIN:?good turgor.?HEART:?no murmurs, rubs, gallops, regular rate and rhythm.?LUNGS:?no wheezes, rales, rhonchi, good air movement, clear to auscultation bilaterally.?ABDOMEN:?soft non tender.? Assessment: * Assessment: 1.?Hydroureter - N13.4 (Prim sharad)???2.?Essential hypertension - I10???3.?Prostatism - N40.0??? Plan: * Treatment: Notes: need us bladder and ureters with post void residual/ he is going to make appt with dr perry ?2.?Essential hypertension? Start amLODIPine Besylate Tablet, 5 MG, 1 tablet, Orally, Once a day, 30 days, 30, Refills 3.? Notes: patient verbalized understnding os medication and directions for use?? 3.?Prostatism?Imaging: RENAL US WITH BLADDER* needs US bladder and ureters with post void residual DevonRadha 09/24/2024 02:35:04 PM EST > needs US bladder and ureters with post void residual Radha Osorio 09/24/2024 02:36:12 PM EST > needs US bladder and ureters with post void residual Notes: pending diagnostioc testing?? * Procedure Codes:? * Follow Up:?4 Weeks * * Sign off status: Completed true * Provider:?Moses Fields MD Date:?0 09/24/2024 Generated for Darek major/Clayton/eTransmitting on:?09/30/2024 12:10 PM EST History and Physical Notes * HPI (History of Present Illness) Category Sub-Category Detail Notes Category Not es Symptom(s) patient is a 74 yo male here to discuss bladder US, had bladder us but they did not do a post void residual. has had no further bleeding since last year. Examination Category Sub-Category Detail Notes Category Not es General Examination GENERAL APPEARANCE: alert, w ell hydrated, in no distress HEAD: normocephalic HEART: no murmurs, rubs, ga llops, regular rate and rhythm LUNGS: no wheezes, rales, r honchi, good air movement, clear to auscultation bilaterally ABDOMEN: soft non tender SKIN: good turgor
--- OUTSIDE RECORDS SUMMARY | 2024-09-30 12:11 | XMS_ITS ---
Author Organization Moses Fields MD Address [address] [place], [place] [phone] Care Team Providers Care Physical Design Engineer Name Role Phone Moses Fields Primary Care Provider [phone] REASON FOR VISIT new orders for Bladder US Encounters Encounter Location Date Provider Diagnosis Moses Fields MD [address] [place] [phone] 09/21/2024 Moses Fields Benign prostatic hyperplasia, unspecified whether lower urinary tract symptoms present N40.0 and Prostatism N40.0 Assessments Encounter Date Diagnosis (ICD Code) Assessment Notes Treatment Notes Treatment Clinical Notes Section Notes 09/21/2024 Benign prostatic hyperplasia, unspecified whether lower urinary tract symptoms present (ICD-10 - N40.0) 09/21/2024 Prostatism (ICD-10 - N40.0) Plan Of Treatment Pending Test Test Name Order Date US bladder 09/21/2024 Next Appt Details Provider Name:Moses valdivia, 12/30/2024 08:00:00 AM, [address], [address], [place], [place], [phone], Provider Name:Moses valdivia, 01/06/2025 08:30:00 AM, [address], [address], [place], [phone], Progress Notes * ALENBALA WINSTONDOB:1950 (74 yo M)Acc No.[id number]:09/21/2024 Patient:?BALA WILSON :1950???Age:74 Y???Sex:Male Address: [address], [place], [address] Subjective: * Chief Complaints: * ???new orders for Bladder US * Medical History:? * Surgical History:? * Hospitalization/Major Diagno stic Procedure:? * Medications:? Objective: * Vitals:? * Physical Examination:? Assessment: * Assessment: 1.?Benign prostatic hyperpla chanell, unspecified whether lower urinary tract symptoms present - N40.0???2.?Prostatism - N40.0??? Plan: * Treatment: * Procedure Codes:? * true * Date:? Generated for Darek major/Clayton/eTransmitting on:?09/30/2024 12:11 PM EST
== END 2024-09-30 10:28 | disposition home or self-care (01) ==
LOC: HO.HMGCX 10:27
PROVIDERS: PCP Internal Medicine; Visit Provider Internal Medicine
DX: N13.4 Hydroureter (principal); N40.0 Benign prostatic hyperplasia without lower urinary tract symptoms
CPT/HCPCS: 76770

== ENCOUNTER → 2024-09-30 10:29 | Outpatient (BNV) | payer MEDICARE, SELFPAY | PROVIDERS: PCP Internal Medicine; Visit Provider Radiology Diagnostic Radiology | DX: N20.0 Calculus of kidney (principal); N32.89 Other specified disorders of bladder | CPT/HCPCS: 76770 ==

== ENCOUNTER 2024-10-05 15:26 | Outpatient (AMB) | payer MEDICARE, SELFPAY ==
--- NOTE | 2024-10-05 15:27 | MHC.OFFVIS ---
Intake Visit Reasons: Discuss US Findings(set) Intake Note: Patient is present for DISCUSS US FINDINGS Urology Medication:FINASTERIDE,ALFUZOSIN Antibiotic Allergy:NONE Blood Thinner:NONE Respiratory Therapy Assistant Required: No Allergies No Known Allergies Allergy (Verified 10/05/24 15:28) HPI Comments Details: Aaron is a very pleasant male. He is a patient of Dr. Fields. He is seen for following urologic conditions - incomplete bladder emptying - elevated PVR - bilateral hydronephrosis Recent renal US - 09/28 Bilateral mild hydronephrosis and diffuse bilateral hydroureter to the level of the bilateral UVJs. No definite obstructing lesion evident. Urinary bladder wall is thickened and trabeculated, and there is significant post void residual of 809 mL. Findings suggest long-standing outlet obstruction. There is significant prostate enlargement with estimated volume of 101 mL Found information online from physical therapist about voiding positions to relax pelvic floor Discussed use of squatty potty On cystoscopy Has trilobar hypertrophy. Recommend GreenLight laser procedure. He had minimal symptoms from his retention. 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 Incomplete bladder emptying PVR 200 cc Feels as though he is emptying Discussed trial of medications High PVR PSA 4.7 free PSA 34% Prescriptions provided finasteride and alfuzosin Three-month follow-up [facility] Medical History Hyperparathyroidism Surgical History Hx of cystoscopy Hx of colonoscopy Family History Father Parkinsons Mother Alzheimer disease Social History Household Members: Spouse Household Members Other:: Alcohol intake: current Alcohol intake frequency: does not drink Patient Tobacco Use Status: Never used Tobacco Review of Systems Const All systems reviewed & are unremarkable except as noted in HPI and below Reports no additional complaints Resp Reports no additional complaints GI Reports no additional complaints Reports as per HPI Musc Reports no additional complaints Physical Exam Telemedicine evaluation Appropriate responses Regular breathing rate and rhythm HEENT Head: Yes normal to inspection Ears: hearing grossly normal bilaterally Eyes General: appearance normal, both eyes and all related structures Neck Neck: Yes normal visual inspection Chest Chest palpation & inspection: normal inspection of the chest Resp Effort & Inspection: normal respiratory effort and able to speak in complete sentences Telehealth Telehealth Telehealth Platform: [employer] Location of provider rendering services: practice address Location of patient: address on file Patient Identification confirmed using: Name, : Yes Telehealth method: video Patient verbally consented to treatment: Yes Patient verbally consented to billing insurance company: Yes Patient informed of any privacy concerns related to visit: Yes Minutes spent on Phone/Video with Pt.: 15 Assessment & Plan Assessment & Plan (1) Incomplete emptying of bladder due to benign prostatic hyperplasia: Code(s): N40.1 - Benign prostatic hyperplasia with lower urinary tract symptoms; R33.9 - Retention of urine, unspecified Category: Medical (2) Hydronephrosis: Code(s): N13.30 - Unspecified hydronephrosis Category: Medical Plan May f/u with imaging Orders: Orders US retroperitoneal comp 2 Months N13.30 - Unspecified hydronephrosis, N40.1 - Benign prostatic hyperplasia with lower urinary tract symptoms, R33.9 - Retention of urine, unspecified Patient Instructions: This note is constructed using voice recognition software. While every effort has been made to ensure accuracy telephone operator receptionist errors may have been included. Imaging studies, laboratory and physical exam results were discussed and reviewed in detail. No major barriers to patient understanding were identified. An opportunity to ask questions regarding the treatment plan was provided. All questions were answered. The patient expressed understanding and agreement with the above treatment plan. The patient is aware they should contact our office by phone for worsening of their current condition or the appearance of new urologic symptoms. Compliance is encouraged with any medications and followup testing that is ordered. It is a privilege to participate in the urologic care of your patient. If you have any questions or concerns regarding treatment for the above conditions, or other urologic issues, please do not hesitate to contact me. The office telephone contact is [phone]. Sincerely, Dr Casa Valladares MD, JO [facility] - Urology Compassionate Specialist Care for the Genitourinary System Coding Level of Care Code Tele Est Pt Level 3 (03151) Diagnoses Incomplete emptying of bladder due to benign prostatic hyperplasia N40.1; R33.9 Hydronephrosis N13.30
--- OUTSIDE RECORDS SUMMARY | 2024-10-05 19:30 | XMS_ITS | Clinical Summary ---
Author Organization [employer] Address [address] [place] [address] 7[address] [place] [address] Care Team Providers Care Retort Load Expediter Name Role Phone Unavailable Primary Care Provider [...] Description 12/06/2024 9:00 AM EDT Office Visit [facility] [address] [place], [place] [phone] Mohamud Jimenezine [address] [place], [place] [phone] Health Maintenance Due Date Last Done Comments [...] Relevant to Health Maintenance Insurance DENTAL - [facility] PPO
--- OUTSIDE RECORDS SUMMARY | 2024-10-05 19:30 | XMS_ITS | Encounter Summary ---
Author Organization [employer] Address [address] [place] [address] Care Team Providers Care Bill Peddler Name Role Phone Unavailable Primary Care Provider Unavailabl e Encounter Details Date Type Department Care Team (Late st Contact Info) Description 07/01/2022 Abstract [facility] [address] [place] [phone] Dental, Provider, DDS Social History Tobacco Use [...] Description 12/06/2024 9:00 AM EDT Office Visit [facility] [address] [place] [address] Winifred Jimenez [address] [place] [phone] documented as of this encounter Procedures Procedure [...]
--- OUTSIDE RECORDS SUMMARY | 2024-10-05 19:30 | XMS_ITS | Encounter Summary ---
Author Organization [employer] Address [address] [place] [address] Care Team Providers Care Welt Stitch Cleaner Name Role Phone Unavailable Primary Care Provider Unavailabl e Encounter Details Date Type Department Care Team (Latest Contact Info) Description 04/24/2021 Abstract [facility] CONVERSIONS Dental, Provider, DDS Social [...] Description 12/06/2024 9:00 AM EDT Office Visit [facility] [address] [place], [place] [phone] Winifred Jimenez [address] [place] [address] documented as of this encounter Visit Diagnoses Not on filedocumented in this encounter
--- OUTSIDE RECORDS SUMMARY | 2024-10-05 19:30 | XMS_ITS | Encounter Summary ---
Author Organization [employer] Address [address] [place] [address] Care Team Providers Care Die Engraver Name Role Phone Unavailable Primary Care Provider Unavailabl e Encounter Details Date Type Department Care Team (Latest Contact Info) Description 04/18/2022 Abstract [facility] CONVERSIONS Dental, Provider, DDS Social History [...] AM EDT Office Visit [facility] [address] [place], [place] [phone] Winifred Jimenez [address] [place] [address] documented as of this encounter Visit Diagnoses Not on filedocumented in this encounter
--- OUTSIDE RECORDS SUMMARY | 2024-10-05 19:30 | XMS_ITS ---
Author Organization Moses Fields MD Address [address] [place] [phone] Care Team Providers Care Real Estate Coordinator Name Role Phone Moses Fields Primary Care Provider Encounters Encounter Location Date Provider Diagnosis Moses Fields MD 10 [facility] [address] [place] [phone] 09/30/2024 Moses Fields Plan Of Treatment Next Appt Details Provider Name:Moses Lynn ietruman, 12/30/2024 08:00:00 AM, [address] [place] [address], [address] [place] [address], [phone], Provider Name:Moses Lynn ier, 01/06/2025 08:30:00 AM, [address] [place] [address], [place] [address], [place], [place], [phone], Progress Notes * BALA WILSONDOB:1950 (74 yo M)Acc No.[id number]:09/30/2024 Patient:?BALA WILSON :1950???Age:74 Y???Sex:Male Address: [address], [place], [place], [address] * true * Date:? Generated for Darek major/Clayton/Radha on:?10/05/2024 07:30 PM EST
--- OUTSIDE RECORDS SUMMARY | 2024-10-05 19:30 | XMS_ITS ---
Author Organization Moses Fields MD Address [address] [place], [place] [phone] Care Team Providers Care Health Care Manager Name Role Phone Moses Fields Primary Care Provider Allergies No Known Allergies REASON FOR VISIT [...] Problem Status W/U Status Risk Notes Problem [id number] Hydroureter (N13.4) Active confirmed Vital Signs Blood pressure systolic 178 mm Hg 09/24/19 25 Blood pressure diastolic 90 mm Hg 025 Height 73 in 09/24/2024 Weight 241 lbs 09/24/2024 BMI 31.79 kg/m2 09/24/2024 weight is up 7 pounds since 06-11-24 Encounters Encounter Location Date Provider Diagnosis Moses Fields MD [address] [place] [address] Drive [address] [place], [place] [phone] 09/24/2024 Moses Fields Hydroureter N13.4 ; Essential [...] Reason: Provider Name:Moses valdivia, 12/30/2024 08:00:00 AM, [address] [place] [address], [address], [place], [place], [phone], Provider Name:Moses valdivia, 01/06/2025 08:30:00 AM, [address] [place] [address], [address], [place], [place], [phone], Progress Notes * FABRICIO WILSON:1950 (74 yo M)Acc No.[id number]:09/24/2024 Progress Notes Patient:?BALA WILSON Provider:?Moses Fields MD :1950???Age:74 Y???Sex:Male Deric e:09/24/2024 Address: [address], [facility] Subjective: * Chief Complaints: * ???Discuss order [...] MD Date:?0 09/24/2024 Generated for Darek major/Clayton/eTransmitting on:?10/05/2024 07:30 PM EST History and Physical Notes * [...]
--- OUTSIDE RECORDS SUMMARY | 2024-10-05 19:31 | XMS_ITS ---
Author Organization Moses Fields MD Address [address] [place] [phone] Care Team Providers Care Radiation Monitor Name Role Phone Moses Fields Primary Care Provider Encounters Encounter Location Date Provider Diagnosis Moses Fields MD 10 [facility] [address] [place] [phone] 09/30/2024 Moses Fields Plan Of Treatment Next Appt Details Provider Name:Moses Lynn ietruman, 12/30/2024 08:00:00 AM, [address] [place] [address], [address] [place] [address], [phone], Provider Name:Moses Lynn ier, 01/06/2025 08:30:00 AM, [address] [place] [address], [place] [address], [place], [place], [phone], Progress Notes * BALA IWLSONDOB:1950 (74 yo M)Acc No.[id number]:09/30/2024 Patient:?BALA WILSON :1950???Age:74 Y???Sex:Male Address: [address], [place], [place], [address] * true * Date:? Generated for Darek major/Clayton/Radha on:?10/05/2024 07:30 PM EST
== END 2024-10-05 16:12 | disposition home or self-care (01) ==
LOC: HO.HUSH 15:26
PROVIDERS: PCP Internal Medicine; Visit Provider Urology
DX: N40.1 Benign prostatic hyperplasia with lower urinary tract symptoms (principal); R33.9 Retention of urine, unspecified; N13.30 Unspecified hydronephrosis
CPT/HCPCS: 99213

== ENCOUNTER 2024-12-03 08:50 | Outpatient (REF) | payer MEDICARE, SELFPAY ==
--- NOTE | ~2024-12-03 | US_ITS ---
CLINICAL HISTORY: N40.1 - Benign prostatic hyperplasia with lower urinary tract symptoms US Renal Comparison: 09/30/2024 10:36 AM EST: [place]: US RETROPERITONEAL COMP (09:36 AM DIRECTOR ORANGE) Findings: Right kidney normal size and echotexture, 11.3 cm length. Left kidney normal size and echotexture, 11.6 cm length. Moderate hydronephrosis of bilateral kidneys. Normal color Doppler. Urinary bladder diverticula noted, otherwise unremarkable. Prevoid volume 366 mL. Postvoid volume 490 mL. Bilateral ureteral jets are not visualized. Prostate measures 6.3 x 5.4 x 4.8 cm IMPRESSION: 1. Bilateral hydronephrosis, etiology indeterminate. Correlate for bladder outlet obstruction This document has been electronically signed by: Jose Spear MD on 12/04/2024 08:31:06
--- OUTSIDE RECORDS SUMMARY | 2024-12-03 09:17 | XMS_ITS | Encounter Summary ---
Author Organization [employer] Address [address] [place] [address] Care Team Providers Care Store Mgr Name Role Phone Unavailable Primary Care Provider Unavailabl e Encounter Details Date Type Department Care Team (Latest Contact Info) Description 04/18/2022 Abstract [facility] CONVERSIONS Dental, Provider, DDS Social History [...] Description 12/06/2024 9:00 AM EDT Office Visit [facility] [address] [place] [address] Winifred Jimenez [address] [place] [address] documented as of this encounter Visit Diagnoses Not on filedocumented in this encounter
--- OUTSIDE RECORDS SUMMARY | 2024-12-03 09:17 | XMS_ITS | Encounter Summary ---
Author Organization [email or web address] Address [address] [place] [address] Care Team Providers Care Housekeeping And Laundry Team Leader Name Role Phone Unavailable Primary Care Provider Unavailabl e Encounter Details Date Type Department Care Team (Late st Contact Info) Description 07/01/2022 Abstract [facility] [address] [place] [address] Dental, Provider, DDS Social History Tobacco Use [...] Description 12/06/2024 9:00 AM EDT Office Visit [facility] [address] [place] [phone] Winifred Jimenez [address] [place] [phone] documented as of this encounter Procedures Procedure [...]
--- OUTSIDE RECORDS SUMMARY | 2024-12-03 09:17 | XMS_ITS | Encounter Summary ---
Author Organization [employer] Address [address] [place] [address] Care Team Providers Care Dental Laboratory Technician Apprentice Name Role Phone Unavailable Primary Care Provider Unavailabl e Encounter Details Date Type Department Care Team (Latest Contact Info) Description 04/24/2021 Abstract [facility] CONVERSIONS Dental, Provider, DDS Social History [...] EDT Office Visit [facility] [address] [place] [address] Winifred Jimenez [address] [place] [address] documented as of this encounter Visit Diagnoses Not on filedocumented in this encounter
--- OUTSIDE RECORDS SUMMARY | 2024-12-03 09:17 | XMS_ITS | Clinical Summary ---
Author Organization [employer] Address [address] [place] [address] 7t [place] [address] Care Team Providers Care Utility Hand Name Role Phone Unavailable Primary Care Provider [...] Description 12/06/2024 9:00 AM EDT Office Visit [facility] [address] [place], [place] [phone] Mohamud Jimenezine [address] [place], [place] [phone] Health Maintenance Due Date Last Done Comments [...] Relevant to Health Maintenance Insurance DENTAL - [facility] PPO
== END 2024-12-03 08:51 | disposition home or self-care (01) ==
LOC: HO.HMGCX 08:50
PROVIDERS: PCP Internal Medicine; Visit Provider Urology
DX: N40.1 Benign prostatic hyperplasia with lower urinary tract symptoms (principal); N13.30 Unspecified hydronephrosis; R33.9 Retention of urine, unspecified
CPT/HCPCS: 76770

== ENCOUNTER → 2024-12-03 08:53 | Outpatient (BNV) | payer MEDICARE, SELFPAY | PROVIDERS: PCP Internal Medicine; Visit Provider Specialist | DX: N13.30 Unspecified hydronephrosis (principal) | CPT/HCPCS: 76770 ==

== ENCOUNTER 2024-12-14 08:33 | Outpatient (AMB) | payer MEDICARE, SELFPAY ==
--- NOTE | 2024-12-14 08:36 | A.OFFVIS_ITS ---
Intake Visit Reasons: 6m/US/PVR Intake Note: pt here today for:6m/US/PVR uro meds:None allergies:None blood thinner:None pvr:859ml Short Haul Driver Required: No Allergies No Known Allergies Allergy (Verified 12/14/24 08:50) HPI Comments Details: Aaron is a very pleasant male. He is a patient of Dr. Fields. He is seen for following urologic conditions - incomplete bladder emptying - elevated PVR - bilateral hydronephrosis Remains with very high residuals Inconsistency with ultrasound reports Obtain CT urogram Recent renal US - 09/28 Bilateral mild hydronephrosis and diffuse bilateral hydroureter to the level of the bilateral UVJs. No definite obstructing lesion evident. Urinary bladder wall is thickened and trabeculated, and there is significant post void residual of 809 mL. Findings suggest long-standing outlet obstruction. There is significant prostate enlargement with estimated volume of 101 mL Found information online from physical therapist about voiding positions to relax pelvic floor Prior Discussed use of squatty potty On cystoscopy Has trilobar hypertrophy. Recommend GreenLight laser procedure. 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 Incomplete bladder emptying PVR 200 cc Feels as though he is emptying Discussed trial of medications High PVR PSA 4.7 free PSA 34% Imaging - ultrasound with mild bilateral hydronephrosis Prescriptions provided finasteride and alfuzosin Three-month follow-up PFSH Medical History Hyperparathyroidism Surgical History Hx of cystoscopy Hx of colonoscopy Family History Father Parkinsons Mother Alzheimer disease Social History Household Members: Spouse Household Members Other:: Alcohol intake: current Alcohol intake frequency: does not drink Patient Tobacco Use Status: Never used Tobacco Review of Systems Const Denies chills and Denies fever(s) Card Reports no additional complaints and Denies syncope Resp Denies cough GI Denies abdominal pain and Denies heartburn Reports as per HPI and Denies change in libido Neuro Denies syncope Psych Denies change in libido Endo Denies change in libido Physical Exam Const General: cooperative, healthy appearing, comfortable and no acute distress Orientation/consciousness: patient oriented x3 HEENT Face and sinus: Yes normal facial exam Mouth: moist mucous membranes Neck Neck: Yes normal visual inspection, Yes full ROM and Yes trachea midline Chest Chest palpation & inspection: normal inspection of the chest Resp Effort & Inspection: normal respiratory effort, able to speak in complete sentences and no respiratory distress GI Inspection: Yes normal to inspection Back/Spine/Pelvis Cervical Spine: normal cervical lordosis Thoracic/Lumbar Spine: thoracic and lumbar spine normal to inspection Skin General skin exam: no rashes or lesions noted Neuro General: patient oriented x3, gait normal, tone normal and moves all extremities Extrem General: Yes normal to inspection and Yes capillary refill normal Office Procedures Post Void Residual Post Residual Void Post Void Residual (PVR): [id number] Void Residual by ultrasound Assessment & Plan Assessment & Plan (1) Hydronephrosis: Code(s): N13.30 - Unspecified hydronephrosis Category: Medical Plan Six week follow-up CT urogram Orders: Orders AMB Post Void Residual by ultrasound Today N40.1 - Benign prostatic hyperplasia with lower urinary tract symptoms, R33.9 - Retention of urine, unspecified, Z13.9 - Encounter for screening, unspecified CT urogram Today N13.30 - Unspecified hydronephrosis, R31.0 - Gross hematuria Basic Metabolic Panel Today N13.30 - Unspecified hydronephrosis, N20.0 - Calculus of kidney Patient Instructions: This note is constructed using voice recognition software. While every effort has been made to ensure accuracy pearl diver errors may have been included. Imaging studies, laboratory and physical exam results were discussed and reviewed in detail. No major barriers to patient understanding were identified. An opportunity to ask questions regarding the treatment plan was provided. All questions were answered. The patient expressed understanding and agreement with the above treatment plan. The patient is aware they should contact our office by phone for worsening of their current condition or the appearance of new urologic symptoms. Compliance is encouraged with any medications and followup testing that is ordered. It is a privilege to participate in the urologic care of your patient. If you have any questions or concerns regarding treatment for the above conditions, or other urologic issues, please do not hesitate to contact me. The office telephone contact is [phone]. Sincerely, Dr Casa Valladares MD, JO ANN [facility] - Urology Compassionate Specialist Care for the Genitourinary System Coding Level of Care Code Est Pt Level 3 (85825) Complex EM visit Add On G2211 Diagnoses Hydronephrosis N13.30 CPT Codes Post Residual Void - PVR CPT Code: 41683-Wgue Void Residual by ultrasound ([id number])
--- OUTSIDE RECORDS SUMMARY | 2024-12-14 08:49 | XMS_ITS ---
Author Organization Moses Fields MD Address [address] [place], [place] [id number] Care Team Providers Care Psychiatric Cns Name Role Phone Moses Fields Primary Care Provider [phone] Allergies No Known Allergies REASON FOR VISIT [...] Problem Status W/U Status Risk Notes Problem [id number] Hydroureter (N13.4) Active confirmed Vital Signs Blood pressure systolic 178 mm Hg 09/24/19 25 Blood pressure diastolic 90 mm Hg 025 Height 73 in 09/24/2024 Weight 241 lbs 09/24/2024 BMI 31.79 kg/m2 09/24/2024 weight is up 7 pounds since 06-11-24 Encounters Encounter Location Date Provider Diagnosis Moess Fields MD [address] [place] [address] Drive [address] [place], [place] [phone] 09/24/2024 Moses Fields Hydroureter N13.4 ; Essential [...] Reason: Provider Name:Moses valdivia, 12/30/2024 08:00:00 AM, [address] [place] [address], [address], [place], [place], [phone], Provider Name:Moses valdivia, 01/06/2025 08:30:00 AM, [address] [place] [address], [address], [place], [place], [phone], Progress Notes * FABRICIO WILSON:1950 (74 yo M)Acc No.[id number]:09/24/2024 Progress Notes Patient:?BALA WILSON Provider:?Moses Fields MD :1950???Age:74 Y???Sex:Male Deric e:09/24/2024 Address: [address], [facility] Subjective: * Chief Complaints: * ???Discuss order [...] and ureters with post void residual DevonRadha valdivia 09/24/2024 02:36:12 PM EST > needs US bladder and ureters with post void residual Notes: pending diagnostioc testing?? * Procedure Codes:? * Follow Up:?4 Weeks * * Sign off status: Completed true * Provider:?Moses Feilds MD Date:?0 09/24/2024 Generated for Darek major/Clayton/eTransmitting on:?12/14/2024 08:49 AM EDT History and Physical Notes * HPI (History [...]
--- OUTSIDE RECORDS SUMMARY | 2024-12-14 08:49 | XMS_ITS | Encounter Summary ---
Author Organization [employer] Address [address] [place] [address] 7 [place] [address] Care Team Providers Care Labor Crew Supervisor Name Role Phone Unavailable Primary Care Provider Unavailabl e Encounter Details Date Type Department Care Team (Latest Contact Info) Description 04/24/2021 Abstract [facility] CONVERSIONS Dental, Provider, DDS Social [...] Care Team (Late st Contact Info) Description 12/20/2024 8:00 AM EDT Office Visit [facility] [address] [place] [phone] Latrell Mosqueda BDS [address] [place] [address] 06/13/2025 9:00 AM EST Office Visit [facility] [address] [place] [address] Winifred Jimenez [address] [place] [address] documented as of this encounter Visit Diagnoses Not on filedocumented in this encounter
--- OUTSIDE RECORDS SUMMARY | 2024-12-14 08:49 | XMS_ITS | Encounter Summary ---
Author Organization [employer] Address [address] [place] [address] 7 [place] [address] Care Team Providers Care Inventory Control Associate Name Role Phone Unavailable Primary Care Provider Unavailabl e Encounter Details Date Type Department Care Team (Latest Contact Info) Description 04/18/2022 Abstract [facility] CONVERSIONS Dental, Provider, DDS Social History [...] Description 12/20/2024 8:00 AM EDT Office Visit [facility] [address] [place] [phone] Latrell Mosqueda BDS [address] [place] [address] 06/13/2025 9:00 AM EST Office Visit [facility] [address] [place] [phone] Winifred Jimenez [address] [place] [address] documented as of this encounter Visit Diagnoses Not on filedocumented in this encounter
--- OUTSIDE RECORDS SUMMARY | 2024-12-14 08:49 | XMS_ITS | Encounter Summary ---
Author Organization [employer] Address [address] [place] [address] [address] [place] [address] Care Team Providers Care Sales And Production Manager Name Role Phone Unavailable Primary Care Provider Unavailabl e Encounter Details Date Type Department Care Team (Late st Contact Info) Description 07/01/2022 Abstract [facility] [address] [place] [phone] Dental, Provider, DDS Social History Tobacco Use [...] Description 12/20/2024 8:00 AM EDT Office Visit [facility] [address] [place] [address] Latrell Mosqueda BDS [address] [place] [phone] 06/13/2025 9:00 AM EST Office Visit [facility] [address] [place] [phone] Winifred Jimenez [address] [place] [phone] documented as of this encounter Procedures Procedure [...]
--- OUTSIDE RECORDS SUMMARY | 2024-12-14 08:49 | XMS_ITS | Clinical Summary ---
Author Organization [employer] Address [address] [facility] 7t [place] [address] Care Team Providers Care Stem Cleaning Machine Feeder Name Role Phone Unavailable Primary Care Provider [...] tablet by mouth in the morning. Active Encounters Date Type Department Care Team Description 12/06/2024 9:00 AM EDT Office Visit [facility] [address] [place] [phone] Winifred Jimenez from Last 3 Months Social History Tobacco Use Types Packs/Day Years [...] Sign Reading Time Taken Comments Blood Pressure 144/82 12/06/2024 8:59 AM EDT Pulse 61 12/06/2024 8:59 AM EDT Temperature - - Respiratory Rate - - Oxygen Saturation - - Inhaled Oxygen Concentration - - Weight - - Height - - Body Mass Index - - Plan of Treatment Upcoming Encounters Date Type Department Care Team (Late st Contact Info) Description 12/20/2024 8:00 AM EDT Office Visit [facility] [address] [place] [address] Latrell Mosqueda BDS [address] [place] [address] 06/13/2025 9:00 AM EST Office Visit [facility] [address] [place] [phone] Winifred Jimenez [address] [place], [place] [phone] Health Maintenance Due Date Last Done Comments [...] 2024 06/25/2021, 10/26/2020, 09/29/2020, Additional history exists Colorectal Cancer Screening 01/15/2025 FIT DNA/Cologuard 01/15/2025 01/15/2022 Dental X-Ray: Bitewings 05/27/2025 05/26/20 24, 02/13/2023, 10/14/2022 Dental Oral Exam 06/09/2025 12/06/2024, , 10/14/2022 Dental Prophylaxis 06/09/2025 12/06/2024, 1 , 10/08/2023, Additional history exists Tobacco Screening 12/06/2025 12/06/2024 RSV Patients and Patients Aged 60 years or older (1 - 1-dose 75+ series) 2026 Pneumococcal Vaccine: 50+ Years Completed 12/21/2020, 08/12/2017 Influenza Vaccine Completed 06/11/2024, , 05/31/2022, Additional history exists HIB Vaccines Aged Out No longer eligi [...] Procedure Name Priority Date/Time Associated Diagnosis Comments PERIODIC ORAL EVALUATION - ESTABLISHED PATIENT Routine 12/06/2024 9:00 AM EDT INTRAORAL - PERIAPICAL FIRST RADIOGRAPHIC IMAGE Routine 12/06/2024 9:00 AM EDT PROPHYLAXIS - ADULT Routine 12/06/2024 9 :00 AM EDT BITEWINGS - 4 RADIOGRAPHIC IMAGES Routine 05/26/2024 2:00 PM EDT from Last 3 Months or Most Recently Relevant to Health Maintenance Insurance DENTAL - [facility] PPO DENTAL - [facility]
--- OUTSIDE RECORDS SUMMARY | 2024-12-14 08:50 | XMS_ITS ---
Author Organization Moses Fields MD Address [address] [place] [phone] Care Team Providers Care Tan Room Supervisor Name Role Phone Moses Fields Primary Care Provider Encounters Encounter Location Date Provider Diagnosis Moses Fields MD [address] [facility] [address] [place] [phone] 09/30/2024 Moses Fields Plan Of Treatment Next Appt Details Provider Name:Moses Lynn ietruman, 12/30/2024 08:00:00 AM, [address] [place] [address], [address] [place] [address], [phone], Provider Name:Moses Lynn ier, 01/06/2025 08:30:00 AM, [address] [place] [address], [place] [address], [place], [place], [phone], Progress Notes * BALA WILSONDOB:1950 (74 yo M)Acc No.[id number]:09/30/2024 Patient:?BALA WILSON :1950???Age:74 Y???Sex:Male Address: [address], [place], [place], [address] * true * Date:? Generated for Darek major/Clayton/Raheemsmitting on:?12/14/2024 08:49 AM EDT
--- OUTSIDE RECORDS SUMMARY | 2024-12-14 08:50 | XMS_ITS | Patient Health Record ---
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0 g/dl Red Cell Distribution Width 13.1 11.0-16.0 % Platelet Count 255 160-400 X10*3/uL Mean Platelet Volume 10.1 9.4-12.4 fL Neutrophils Percent Auto 57.1 45-73 % Imm Gran Pct Auto 0.1 0.0-0.4 % Lymphocytes Percent Auto 29.0 20-40 % Monocytes Percent Auto 10.2 2-11 % Eosinophils Percent Auto 2.8 0-4 % Basophils Percent Auto 0.8 0-2 % NRBC Pct Auto 0.0 0.0-0.2 /100WBC Neutrophils Absolute Auto 4.4 2.0-8.3 x10*3/uL Imm Gran Abs Auto 0.01 0.00-0.03 X10*3/uL Lymphocytes Absolute Auto 2.3 1.2-4.9 X10*3/uL Monocytes Absolute Auto 0.8 0.1-1.2 X10*3/uL Eosinophils Absolute Auto 0.2 0.0-0.4 X10*3/uL Basophils Absolute Auto 0.1 0.0-0.2 X10*3/uL NRBC Abs Auto 0.000 0.0-0.012 X10*3/uL Comprehensive [place]. Panel Fa st Reviewed date:12/29/2023 01:44:50 PM Interpretation: Performing Lab:[facility], [address] [place] [phone] Notes/Report: Sodium 138 135-145 mmol/L Potassium 4.3 3.3-5.1 mmol/L Chloride 108 96-108 mmol/L Carbon Dioxide 22 22-29 mmol/L Anion Gap 12 12-20 Blood Urea Nitrogen 14 9-16 mg/dL Creatinine 0.99 0.5-1.4 mg/dL Estimated Glomerular Filt Rate > 60 NOTE: For -[place]re[place] individuals, multiply the result by 1.210. Chronic Kidney Disease: Estimated GFR < 60 mL/min/1.73m2 Severe Kidney Disease: Estimated GFR < 15 mL/min/1.73m2 Glucose Fasting 107 60-99 mg/dL A fasting glucose from 100-125 mg/dl is considered impaired (pre-diabetes). Calcium 10.5 8.4-10.2 mg/dL Bilirubin Total 0.7 0.0-1.0 mg/dL Aspartate Amino Transferase 32 5-37 U/L Alanine Aminotransferase 41 0-40 U/L Total Protein 7.6 6.5-8.0 g/dL Albumin Level 4.8 3.5-5.0 g/dL Alkaline Phosphatase 60 39-117 U/L Lipid Panel Reviewed date:12/26/2023 04:11:48 PM Interpretation: Performing Lab:[address] [phone] Notes/Report: Triglycerides 150 <150 mg/dL Desirable Triglyceride: less than 150 mg/dL Borderline High Triglyceride 150-199 mg/dL High Triglyceride: 200-499 mg/dL Very High Triglyceride: greater than or equal to 5OO mg/dL Cholesterol 121 <200 mg/dL Desirable Cholesterol: less than 200 mg/dL Borderline High Cholesterol: 200-239 mg/dL High Cholesterol: greater than 239 mg/dL LDL Cholesterol Calculated 49 <100 mg/dL Desirable LDL: less than 100 mg/dL Near Optimal/Above Optimal LDL: 110-129 mg/dL Borderline High LDL: 130-159 mg/dL High LDL: 160-189 mg/dL Very High LDL: greater than or equal to 190 mg/dL HDL Cholesterol 42 >40 mg/dL Desirable HDL: greater than 40 mg/dL Note: This HDL assay may give artificially low results in patients with liver disease. PSA,Total (Free>4and<10) Reviewed date:01/02/2024 01:11:48 PM Interpretation:TERRENCE 01/02/24 Performing Lab:[address] [phone] Notes/Report: PSA,Total (Free>4and<10) 4.51 0.00-4.00 ng/mL PSA methodology: Osborne Alinity i Chemiluminescent Microparticle Immunoassay (CMIA) Vitamin D 25-OH Total Reviewed date:12/26/2023 12:41:44 PM Interpretation: Performing Lab:[address] [phone] Notes/Report: Vitamin D 25-OH Total 34.2 >30 ng/mL Health Based Reference Values* < 20 ng/mL Deficient 20-30 ng/mL Insufficient > 30 ng/mL Sufficient *Floyd HENSLEY. N Engl J Med. 2007;357:266-280 Care must be taken in interpreting Vitamin D results from different laboratories and methodologies. Published data demonstrated that results from patients undergoing hemodialysis may show a negative bias when tested with various automated 25-OH vitamin D assays when compared to LC-MS/MS. When testing samples from patients whose predominant form of Vitamin D is Vitamin D2, such as patients receiving Vitamin D2 supplementation, results that are subtherapeutic should be confirmed with another method such as LC-MS/MS. Microalbumin, Random Reviewed date:12/26/2023 12:43:10 PM Interpretation: Performing Lab:[address] [phone] Notes/Report: Creatinine Urine 52.66 Microalbumin Urine 6.0 Microalbum/Creatinine Ratio Ur 11.3 <30 ug/mg cr Albumin/Creatinine Ratio Reference Ranges: Normal: < 30 ug/mg creatinine Microalbuminuria: 30 - 300 ug/mg creatinine Clinical Albuminuria: > 300 ug/mg creatinine Hemoglobin A1c Reviewed date:12/26/2023 12:42:22 PM Interpretation: Performing Lab:[address] [phone] Notes/Report: Hemoglobin A1c % 5.9 <6.0 % Hemoglobin A1C Reference Range Adults: 4.8 - 6.0 % Non diabetic: < 6.0 % Goal: < 7.0 % Additional Action Suggested: > 8.0 % Note: Hemoglobin A1c results are invalid for patients with abnormal amounts of HbF. Blood transfusions may impact the HbA1c concentration in the patient sample. Estimated Average Glucose 123 eAG = Estimated average glucose which is %A1C expressed as average glucose, using the formula of the G6I-Qeoxrfb Average Glucose study (ADAG), Diabetes Care, Vol.31,#8, Mar. 2007 UA ClnCatch+Micro w/rflx Cul t Reviewed date:12/26/2023 04:18:27 PM Interpretation: Performing Lab:[address] [phone] Notes/Report: Urine, Clean Catch Color Urine Yellow Appearance Urine Clear PH 5.5 5.0-9.0 Glucose Urine UA Negative Negative mg/dL Urine Blood Negative Negative Specific [place] - Urine 1.010 1.005-1.025 Urine Protein Negative Neg-Trace mg/dL Urine Ketones Negative Negative mg/dL Nitrite Urine Negative Negative Leukocyte Esterase Urine Trace Negative RBC Urine 0-2 0-2 /HPF WBC Urine 0-5 0-5 /HPF Squamous Epithelial Cell Urine 0-2 0-2 /HPF Bacteria Urine None Seen None Seen Hyaline Casts Urine 0-2 0-2 /LPF Liver Panel Reviewed date:07/05/2024 05:21:28 PM Interpretation: Performing Lab:[facility], [address] [place] [phone] Notes/Report: Bilirubin Total 0.6 0.0-1.0 mg/dL Bilirubin Direct 0.2 0.0-0.5 mg/dL Aspartate Amino Transferase 25 5-37 U/L Alanine Aminotransferase 34 0-40 U/L Total Protein 7.3 6.5-8.0 g/dL Albumin Level 4.6 3.5-5.0 g/dL Alkaline Phosphatase 53 39-117 U/L Glucose Fasting Reviewed date:07/05/2024 05:21:06 PM Interpretation: Performing Lab:[facility], [address] [place] [phone] Notes/Report: Glucose Fasting 102 60-99 mg/dL A fasting glucose from 100-125 mg/dl is considered impaired (pre-diabetes). Lipid Panel with Reflex Reviewed date:07/05/2024 05:21:18 PM Interpretation: Performing Lab:[facility], [address] [place] [phone] Notes/Report: Triglycerides 180 <150 mg/dL Desirable Triglyceride: [...] A1c Reviewed date:07/05/2024 05:18:49 PM Interpretation: Performing Lab:[facility], [address] [place] [phone] Notes/Report: Hemoglobin A1c % 5.8 <6.0 % [...] average glucose, using the formula of the L8V-Bcllkya Average Glucose study (ADAG), Diabetes Care, Vol.31,#8, Mar. 2007 PSA Free and Total Reviewed date:01/02/2024 01:12:15 PM Interpretation:see back 01-02-2024 Performing Lab:[facility], [address] [place] [phone] Notes/Report: Prostate Specific Ag Total 4.7 < OR = 4.0 ng/mL Percent Free Prostate Spec Ag 34 >25 % (calc) PSA(ng/mL) Free PSA(%) Estimated(x) Probability of Cancer(as%) 0-2.5 (*) Approx. 1 2.6-4.0(1) 0-27(2) 24(3) 4.1-10(4) 0-10 56 11-15 28 16-20 20 21-25 16 >or =26 8 >10(+) N/A >50 References:(1)Johnny a et al.:Urology 60: 469-474 (2001) (2)Zachariah et al.:J.Urol 168: 922-925 (2001) Free PSA(%) Sensitivity(%) Specificity(%) < or = 25 85 19 < or = 30 93 9 (3)Catalona et al.:AB 277: 3125-7578 (1996) (4)Catalona et al.:AB 279: 0440-8524 (1997) (x)These estimates vary with age, ethnicity, family history and ROSA results. (*)The diagnostic usefulness of % Free PSA has not been established in patients with total PSA below 2.6 ng/mL (+)In men with PSA above 10 ng/mL, prostate cancer risk is determined by total PSA alone. The Total PSA value from this assay system is standardized against the equimolar PSA standard. The test result will be approximately 20% higher when compared to the WHO-standardized Total PSA (Siemens assay). Comparison of serial PSA results should be interpreted with this fact in mind. PSA was performed using the Kalie Gunnison Immunoassay method. Values obtained from different assay methods cannot be used interchangeably. PSA levels, regardless of value, should not be interpreted as absolute evidence of the presence or absence of disease. THIS TEST WAS PERFORMED AT: [facility] [address] [place] [phone] BEBETO GARCÍA MD Free Prostate Spec Ag 1.6 Complete Blood Count Auto Di ff Reviewed date:03/23/2024 04:41:10 PM Interpretation: Performing Lab:[facility], [address] [place] [phone] Notes/Report: White Blood Count 9.2 4.8-10.8 X10*3/uL Red Blood Count 4.64 4.60-5.80 X10*6/uL Hemoglobin 14.1 14.0-18.0 g/dl Hematocrit 40.7 42.0-52.0 % Mean Corpuscular Volume 87.7 80.0-98.0 fL Mean Corpuscular Hemoglobin 30.4 27.0-33.0 pg Mean Corpuscular HGB Conc 34.6 31.0-36.0 g/dl Red Cell Distribution Width 13.1 11.0-16.0 % Platelet Count 199 160-400 X10*3/uL Mean Platelet Volume 9.4 9.4-12.4 fL Neutrophils Percent Auto 71.4 45-73 % Imm Gran Pct Auto 0.3 0.0-0.4 % Lymphocytes Percent Auto 17.8 20-40 % Monocytes Percent Auto 7.8 2-11 % Eosinophils Percent Auto 2.0 0-4 % Basophils Percent Auto 0.7 0-2 % NRBC Pct Auto 0.0 0.0-0.2 /100WBC Neutrophils Absolute Auto 6.6 2.0-8.3 x10*3/uL Imm Gran Abs Auto 0.03 0.00-0.03 X10*3/uL Lymphocytes Absolute Auto 1.6 1.2-4.9 X10*3/uL Monocytes Absolute Auto 0.7 0.1-1.2 X10*3/uL Eosinophils Absolute Auto 0.2 0.0-0.4 X10*3/uL Basophils Absolute Auto 0.1 0.0-0.2 X10*3/uL NRBC Abs Auto 0.000 0.0-0.012 X10*3/uL Basic Metabolic Panel Reviewed date:03/23/2024 04:38:27 PM Interpretation: Performing Lab:[facility], [address] [place] [phone] Notes/Report: Sodium 143 135-145 mmol/L Potassium 4.3 3.3-5.1 mmol/L Chloride 108 96-108 mmol/L Carbon Dioxide 26 22-29 mmol/L Anion Gap 13 12-20 Blood Urea Nitrogen 16 9-16 mg/dL Creatinine 1.10 0.5-1.4 mg/dL Creatinine Clr Calc Pharmacy 76.8 eGFR (calculated from the MDRD study equation) and eCrCl (calculated from the Cockcroft-Gault equation) are based on different parameters and may not yield comparable results. If eCrCl result is absurd, please check patient's height/weight. Estimated Glomerular Filt Rate > 60 NOTE: For -Eritrean individuals, multiply the result by 1.210. Chronic Kidney Disease: Estimated GFR < 60 mL/min/1.73m2 Severe Kidney Disease: Estimated GFR < 15 mL/min/1.73m2 Glucose Random 104 60-115 mg/dL Calcium 11.0 8.4-10.2 mg/dL UA ClnCatch+Micro w/rflx Cul t Reviewed date:03/23/2024 04:39:17 PM Interpretation: Performing Lab:[facility], [address] [place] [phone] Notes/Report: [id number] Urine, Clean Catch Color Urine Yellow Appearance Urine Clear PH 7.0 5.0-9.0 Glucose Urine UA Negative Negative mg/dL Urine Blood Negative Negative Specific [place] - Urine <= 1.005 1.005-1.025 Urine Protein Negative Neg-Trace mg/dL Urine Ketones Negative Negative mg/dL Nitrite Urine Negative Negative Leukocyte Esterase Urine Trace Negative RBC Urine 0-2 0-2 /HPF WBC Urine 0-5 0-5 /HPF Squamous Epithelial Cell Urine 0-2 0-2 /HPF Bacteria Urine None Seen None Seen Hyaline Casts Urine 0-2 0-2 /LPF CT abdomen pelvis wo con Reviewed date:03/24/2024 04:28:51 PM Interpretation: Performing Lab: Notes/Report: [address] [address] [address] Scan Report Signed Patient: Bala Maddox MR#: [id number] 3 : 1950 Acct:[id number] Age/Sex: 74 / M ADM Date: 03/23/24 Loc: HO.ED Attending Dr: Ordering Physician: Michelle Escamilla Date of Service: 03/23/24 Procedure(s): CT abdomen pelvis wo IV con Accession Number(s): [id number] cc: Moses Fields MD; Michelle Escamilla EXAMINATION: CT ABDOMEN AND PELVIS WITHOUT CONTRAST CLINICAL INFORMATION: Urinary retention. COMPARISON: None available. TECHNIQUE: Multidetector volumetric imaging was performed from the superior aspect of the liver through the pubic symphysis. Sagittal and coronal reformatted images were obtained on the technologist's workstation. This CT examination was performed using dose optimization techniques as appropriate, variously including the following: *Automated exposure control *Adjustment of mA and/or kV according to patient size (this includes techniques or standardized protocols for targeted exams where dose is matched to indication/reason for exam; i.e. extremities or head) *Use of iterative reconstruction technique DLP: 752 mGy-cm FINDINGS: LUNG BASES: -Image lung bases are essentially clear bilaterally aside from mild scarring or atelectasis medial left lung base. -No pleural effusions. -Heart size is normal. -Small type I hiatus hernia. LIVER, GALLBLADDER, AND BILIARY TREE: -Unenhanced liver demonstrates a tiny subcentimeter hypodensity in segment 7, likely a cyst but too small to accurately characterize. No additional liver abnormalities. - The gallbladder is unremarkable with no evidence of radiopaque gallstones, gallbladder wall thickening, or obvious pericholecystic inflammatory changes. -There is no biliary abnormality. PANCREAS: Unremarkable. SPLEEN: Unremarkable. ADRENAL GLANDS: Unremarkable. KIDNEYS AND URETERS: -There is bilateral hydroureteronephrosis. Ureters are dilated to the level of the insertions upon the urinary bladder. No definite obstructing lesion identified on this noncontrast study. No ureteral calculi seen. There are approximately 2 tiny 2 mm nonobstructing calculi left kidney. No right renal calculi. -No renal masses or cysts identified. -There is bilateral perirenal stranding. BLADDER: -Completely decompressed around a Parker catheter balloon. There is definite generalized bladder wall thickening despite a completely contracted urinary bladder. GASTROINTESTINAL TRACT: -Small type I hiatus hernia. -Stomach is somewhat decompressed but normal in appearance grossly. -Duodenal sweep is normal in appearance. -Small bowel is nondilated, normal in course, and caliber, without inflammatory changes. The terminal ileum appears normal. -The colon demonstrates moderate fecal retention throughout. No wall thickening or inflammation identified. Mildly redundant sigmoid colon. -Normal-appearing appendix. ABDOMINAL WALL: -There are bilateral fat-containing small inguinal hernias. -There is a tiny umbilical fat-containing hernia. -Abdominal wall otherwise normal. LYMPH NODES: -No abnormal lymphadenopathy. VASCULAR: No aortic aneurysm. Mild aortic and iliac vascular calcifications. PELVIC VISCERA: Marked enlargement of the prostate gland, which measures 5.8 cm in diameter. The median lobe does protrude into the base of the urinary bladder. OSSEOUS STRUCTURES: -No suspicious lytic or blastic bone lesion. -Moderate spondylosis of the imaged spine. -Partial ankylosis of the left SI joint. -Moderate osteoarthrosis of both hip joints. CT/CT abdomen pelvis wo IV con IMPRESSION: 1. Bilateral hydronephrosis and hydroureter to the level of the urinary bladder, with no definite obstructing calculus or other obstructing abnormality detected. Assessment for mass is limited on this noncontrast study. 2. There are at least 2 tiny nonobstructing 2 mm calculi left kidney. Kidneys otherwise normal. 3. Completely contracted urinary bladder around a Parker catheter. Despite this, there is definite diffuse severe wall thickening of the urinary bladder. Findings suggest cystitis or detrusor hypertrophy from chronic outlet obstruction is 4. Marked prostatic enlargement, 5.8 cm in diameter, with the median lobe protruding into the bladder base. This may be the obstructive etiology. 5. Small bilateral fat-containing inguinal hernias. 6. Moderate fecal retention throughout the colon. No inflammatory changes. 7. Small type I hiatus hernia. 8. Additional ancillary findings as discussed in the body of the report. Fleischner guidelines were followed. Dictated By: Nikolai Chase MD Signed By: <Electronically signed by Nikolai Chase MD in [place]> 03/23/24 1648 DD/ 1343 TD/TT: [employer]er: [address] [address] [address] Scan Report Signed Patient: Shiv Maddox MR#: [id number] 3 : 1950 Acct:[id number] Age/Sex: 74 / M ADM Date: 03/23/24 Loc: HO.ED Attending Dr: Ordering Physician: Michelle Escamilla Date of Service: 03/23/24 Procedure(s): CT abd omen pelvis wo IV con Accession Number(s): [id number] cc: Moses Fields MD; Michelle Escamilla EXAMINATION: CT ABDOMEN AND PELVI S WITHOUT CONTRAST CLINICAL INFORMATION: Urinary retention. COMPARISON: None available. TECHNIQUE: Multidetector volume tric imaging was performed from the superior aspect of the liver through the pubic symphysis. Sagittal and coronal reformatted images w ere obtained on the technologist's workstation. This CT examination was performed using dose optimization techniques as appropriate, various ly including the following: *Automated exposure control *Adjustment of mA an d/or kV according to patient size (this includes techniques or standardized protocols for targeted exams where dose is matched to indication/reason for exam; i.e. extremities or head) *Use of iterative reconstruction technique DLP: 752 mGy-cm FINDINGS: LUNG BASES: -Image lung bases ar e essentially clear bilaterally aside from mild scarring or atelecta sis medial left lung base. -No pleural effusions. -Heart size is normal. -Small type I hiatus hernia. LIVER, GALLBLADDER, AND BILIARY TREE: -Unenhanced liver demonstrates a tiny subcentimeter hypodensity in segment 7, likely a cyst but too small to accurately characterize. No additional liver abnormalities. - The gallbladder is unremarkable with no evidence of radiopaque gallstones, gallblad sindy wall thickening, or obvious pericholecystic inflammatory changes. -There is no biliary abnormality. PANCREAS: Unremarkable. SPLEEN: Unremarkable. ADRENAL GLANDS: Unremarkable. KIDNEYS AND URETERS: -There is bilateral hydroureteronephrosis. Ureters are dilated to the level of the inserti ons upon the urinary bladder. No definite obstructing lesion identified on this noncontrast study. No ureteral calculi seen. There are approximat [place] 2 tiny 2 mm nonobstructing calculi left kidney. No right renal calculi. -No renal masses or cysts identified. -There is bilateral perirenal stranding. BLADDER: -Completely decompre ssed around a Parker catheter balloon. There is definite generalized bladder wall thickening despite a completely contracted urinary bladder. GASTROINTESTINAL TRACT: -Small type I hiatus hernia. -Stomach is somewhat decompressed but normal in appearance grossly. -Duodenal sweep is normal in appearance. -Small bowel is nondilated, normal in course, and caliber, without inflammatory changes . The terminal ileum appears normal. -The colon demonstra efren moderate fecal retention throughout. No wall thickening or inflammation identified. Mildly redundant sigmoid colon. -Normal-appearing appendix. ABDOMINAL WALL: -There are bilateral fat-containing small inguinal hernias. -There is a tiny umbilical fat-containing hernia. -Abdominal wall otherwise normal. LYMPH NODES: -No abnormal lymphadenopathy. VASCULAR: No aortic aneurysm. Mild aortic and iliac vascular calcifications. PELVIC VISCERA: Steve ed enlargement of the prostate gland, which measures 5.8 cm in diameter. The median lobe does protrude into the base of the urinary bladder. OSSEOUS STRUCTURES: -No suspicious lytic or blastic bone lesion. -Moderate spondylosi s of the imaged spine. -Partial ankylosis o f the left SI joint. -Moderate osteoarthr osis of both hip joints. C T/CT abdomen pelvis wo IV con IMPRESSION: 1. Bilateral hydronephrosis and hydroureter to the level of the urinary bladder, with no definite obstructing calculus or other obstructing abnormality detected . Assessment for mass is limited on this noncontrast study. 2. There are at leas t 2 tiny nonobstructing 2 mm calculi left kidney. Kidneys otherwise normal. 3. Completely contra cted urinary bladder around a Parker catheter. Despite this, there is definite diffuse severe wall thickening of the urinary bladder. Findings suggest cystitis or detrusor hypertrophy from chronic outlet obstruction is 4. Marked prostatic enlargement, 5.8 cm in diameter, with the median lobe protruding into the bladder base. This may be the obstructive etiology. 5. Small bilateral fat-containing inguinal hernias. 6. Moderate fecal retention throughout the colon. No inflammatory changes. 7. Small type I hiat us hernia. 8. Additional ancill sharad findings as discussed in the body of the report. Fleischner guideline s were followed. Dictated By: Nikolai Chase MD Signed By: <Electronically signed by Nikolai Chase MD in [place]> 03/23/24 1648 DD/ 1343 TD/TT: [employer]er: US bladder Reviewed date:03/24/2024 04:33:51 PM Interpretation: Performing Lab: Notes/Report: [facility] [address] [place] [address] Ultrasound Report Signed Patient: Bala Maddox MR#: [id number] 3 : 1950 Acct:[id number] Age/Sex: 74 / M ADM Date: 03/23/24 Loc: HO.HMGCX Attending Dr: Moses Fiedls MD Ordering Physician: Moses Fields MD Date of Service: 03/23/24 Procedure(s): US bladder Accession Number(s): [id number] cc: Moses Fields MD EXAMINATION: US PELVIS LIMITED (BLADDER) CLINICAL INFORMATION: Bladder outlet obstruction. COMPARISON: None available. TECHNIQUE: Real-time imaging of the bladder. FINDINGS: BLADDER: Distended at 1546 mL. Post void residual of 1402 mL. Trabeculated bladder wall with debris in the bladder. Right ureteral jet not seen. Left ureteral jet present. Enlarged prostate measuring 119 mL. US/US bladder IMPRESSION: Enlarged prostate with distended urinary bladder and large post void residual consistent with bladder outlet obstruction. Electronically signed by: Claudy Vizcarra MD 03/24/2024 01:30 PM EDT Dictated By: Claudy Vizcarra MD Signed By: <Electronically signed by Claudy Vizcarra MD in [place]> 03/24/24 1330 DD/ 1022 TD/TT: 03/23/24 1042 [employer]er: CHEL[place] [facility] [address] [place] [address] Ultrasound Report Signed Patient: Shiv Maddox MR#: [id number] 3 : 1950 Acct:[id number] Age/Sex: 74 / M ADM Date: 03/23/24 Loc: HO.HMGCX Attending Dr: Moses Fields MD Ordering Physician: Moses Fields MD Date of Service: 03/23/24 Procedure(s): US bladder Accession Number(s): [id number] cc: Moses Fields MD EXAMINATION: US PELVIS LIMITED (BLADDER) CLINICAL INFORMATION: Bladder outlet obstruction. COMPARISON: None available. TECHNIQUE: Real-time imaging of the bladder. FINDINGS: BLADDER: Distended a t 1546 mL. Post void residual of 1402 mL. Trabeculated bladder wall with debris in the bladder. Right ureteral jet not seen. Left ureteral jet present. Enlarged prostate measuring 119 mL. U S/US bladder IMPRESSION: Enlarged prostate wi th distended urinary bladder and large post void residual consistent with bladder outlet obstruction. Electronically zee d by: Claudy Vizcarra MD 03/24/2024 01:30 PM EDT RP Dictated By: Claudy Vizcarra MD Signed By: <Electronically signed by Claudy Vizcarra MD in [place]> 03/24/24 1330 DD/ 1022 TD/TT: 03/23/24 1042 Field C[employer] Grower: CHELSEA Urinalysis and Microscopic Reviewed date:05/07/2024 12:44:18 PM Interpretation: Performing Lab:[facility], [address] [place] [phone] Notes/Report: Color Urine Yellow Appearance Urine Turbid PH 6.0 5.0-9.0 Glucose Urine UA Negative Negative mg/dL Urine Blood Small (1+) Negative Specific [place] - Urine 1.010 1.005-1.025 Urine Protein Trace Neg-Trace mg/dL Urine Ketones Negative Negative mg/dL Nitrite Urine Negative Negative Leukocyte Esterase Urine Large (3+) Negative RBC Urine 0-2 0-2 /HPF WBC Urine >50 0-5 /HPF Squamous Epithelial Cell Urine 0-2 0-2 /HPF Bacteria Urine 1+ None Seen Hyaline Casts Urine 0-2 0-2 /LPF Urine Culture Reviewed date:05/10/2024 12:00:39 PM Interpretation: Performing Lab:[facility], [address] [place] [phone] Notes/Report: O:STAEPI Staphylococcus epidermidis Urine Culture Quant Urine Culture > 100,000 cfu/mL Clindamycin <=0.25 Erythromycin >=8 Nitrofurantoin <=16 Oxacillin >=4 Penicillin-G >=0.5 Tetracycline >=16 Trimethoprim/Sulfamethox azole <=10 Vancomycin 2 Hold Gold Reviewed date:07/05/2024 12:54:31 PM Interpretation: Performing Lab:[facility], [address] [place] [phone] Notes/Report: Hold Gold See Note Specimen held untested for 24 hours; Call to request Chemistry testing. US renal BI Reviewed date:09/21/2024 09:12:26 AM Interpretation: Performing Lab: Notes/Report: [facility] [place] [address] Ultrasound Report Signed Patient: Bala Maddox MR#: [id number] 3 : 1950 Acct:[id number] Age/Sex: 74 / M ADM Date: 09/17/24 Loc: HO.HMGCX Attending Dr: Moses Fields MD Ordering Physician: Moses Fields MD Date of Service: 09/17/24 Procedure(s): US renal BI Accession Number(s): [id number] cc: Moses Fields MD CLINICAL HISTORY: BPH, PROTATISM US RENAL Comparison: None Findings: Right kidney measures 13.1 cm in length. Left kidney measures 12.9 cm in length. Bilateral moderate hydronephrosis persists after bladder emptying. Bilateral hydroureter also observed. No cortical mass lesion or definite shadowing calculus. Urinary bladder wall appears trabeculated. Prevoid volume 1325 mL. Postvoid volume was not obtained. Bilateral ureteral jets are not well visualized. IMPRESSION: 1. Moderate bilateral hydroureteronephrosis. This document has been electronically signed by: Asia Vera DO on 09/17/2024 16:34:14 Dictated By: Asia Vera MD Signed By: <Electronically signed by Asia Vera MD in OV> 09/17/24 1634 DD/ 1634 TD/TT: 09/17/24 1634 [employer]er: [facility] [address] [place] [address] [place] [address] Ultrasound Report Signed Patient: Shiv Maddox er MR#: [id number] 3 : 1950 Acct:[id number] Age/Sex: 74 / M ADM Date: 09/17/24 Loc: HERIBERTO Attending Dr: Moses Fields MD Ordering Physician: Moses Fields MD Date of Service: 09/17/24 Procedure(s): US madeleine al BI Accession Number(s): [id number] cc: Moses Fields MD CLINICAL HISTORY: BP H, PROTATISM US RENAL Comparison: None Findings: Right kidney measure s 13.1 cm in length. Left kidney measures 12.9 cm in length. Bilateral moderate hydronephrosis persists after bladder emptying. Bilateral hydrourete r also observed. No cortical mass les ion or definite shadowing calculus. Urinary bladder wall appears trabeculated. Prevoid volume 1325 mL. Postvoid volume was not obtained. Bilateral ureteral j ets are not well visualized. IMPRESSION: 1. Moderate bilatera l hydroureteronephrosis. This document has be en electronically signed by: Asia Vera DO on 09/17/2024 16:34:14 Dictated By: Asia Vera MD Signed By: <Electronically signed by Asia Vera MD in OV> 09/17/24 1634 DD/ 1634 TD/TT: 09/17/24 1634 [employer]er: US retroperitoneal comp Reviewed date:09/30/2024 04:12:56 PM Interpretation: Performing Lab: Notes/Report: [facility] [address] [place] [address] Ultrasound Report Signed with Addrobyn Patient: Bala Maddox MR#: [id number] 3 : 1950 Acct:[id number] Age/Sex: 74 / M ADM Date: 09/30/24 Loc: JERMAINX Attending Dr: Moses Fields MD Ordering Physician: Moses Fields MD Date of Service: 09/30/24 Procedure(s): US retroperitoneal comp Accession Number(s): [id number] cc: Moses Fields MD ADDENDUM ADDENDUM #1 Addendum: Speech recognition error in the impression of the report. The impression should read as follows: IMPRESSION: 1. Bilateral mild hydronephrosis and diffuse bilateral hydroureter to the level of the bilateral UVJs. No definite obstructing lesion evident. 2. Nonobstructing 2 mm left renal calculus. 3. Urinary bladder wall is thickened and trabeculated, and there is significant post void residual of 809 mL. Findings suggest long-standing outlet obstruction. The left ureteral jet was not visualized, a nonspecific finding. 4. There is significant prostate enlargement with estimated volume of 101 mL. Electronically signed by: Nikolai Chase MD 09/30/2024 01:56 PM EST Addendum Dictated By: Nikolai Chase MD Addendum Signed By: <Electronically signed by Nikolai Chase MD in OV> 09/30/24 1356 Addendum Cosigned By: DD/ TD/TT: 09/30/24 EXAMINATION: US RETROPERITONEAL COMPLETE (RENAL) CLINICAL INFORMATION: Hydroureter, prostatism. COMPARISON: Renal US 09/17/2024. CT abdomen and pelvis 03/23/2024. Bladder ultrasound 03/23/2024. TECHNIQUE: Real-time imaging of the kidneys and bladder. FINDINGS: RIGHT KIDNEY: 12.2 x 5.9 x 5.7 cm (SAG x AP x TRV). The kidney is normal in size, contour, and echogenicity. Renal cortical thickness is normal. No focal suspicious lesion. There is a lower pole 0.2 cm calculus. There is mild hydronephrosis, and hydroureter all the way to the level of the right UVJ. No definite obstructing lesion evident. LEFT KIDNEY: 13.9 x 5.5 x 7.0 cm (SAG x AP x TRV). The kidney is normal in size, contour, and echogenicity. Renal cortical thickness is normal. No calculi or focal parenchymal lesions. There is mild hydronephrosis and hydroureter all the way to the level of the left UVJ. No definite obstructing lesion evident. BLADDER: Bladder is well distended, however there is trabeculation of the bladder wall with mild bladder wall thickening, likely on the basis of long-standing outlet obstruction. Right ureteral jet was noted. The left could not be seen. Prevoid bladder volume is 1062 mL. Postvoid bladder volume is 809 mL. Prostate is significantly enlarged with estimated volume of 101 mL. Median lobe protrudes into the bladder base. US/US retroperitoneal comp IMPRESSION: 1. Bilateral mild hydronephrosis and diffuse bilateral hydroureter to the level of the bilateral UVJs. No definite obstructing lesion evident. 2. Nonobstructing 2 mm left renal calculus. 3. Urinary bladder wall is thickened and trabeculated, and there is significant post void residual of 109 mL. Findings suggest long-standing outlet obstruction. The left ureteral jet was not visualized, a nonspecific finding. 4. There is significant prostate enlargement with estimated volume of 101 mL. Electronically signed by: Nikolai Chase MD 09/30/2024 11:28 AM EST Dictated By: Nikolai Chase MD Signed By: <Electronically signed by Nikolai Chase MD in OV> 09/30/24 1128 DD/ 1037 TD/TT: 09/30/24 1117 [employer]er: [facility] [address] [place] [address] [place] [address] Ultrasound Report Signed with Addenda Patient: Shiv Maddox MR#: [id number] 3 : 1950 Acct:[id number] Age/Sex: 74 / M ADM Date: 09/30/24 Loc: HO.HMGCX Attending Dr: Moses Fields MD Ordering Physician: Moses Fields MD Date of Service: 09/30/24 Procedure(s): US retroperitoneal comp Accession Number(s): [id number] cc: Moses Fields MD ADDENDUM ADDENDUM #1 Addendum: Speech recognition e rror in the impression of the report. The impression should re ad as follows: IMPRESSION: 1. Bilateral mild hydronephrosis and diffuse bilateral hydroureter to the level of the bilateral UVJs. No definite obstructing lesion evident. 2. Nonobstructing 2 mm left renal calculus. 3. Urinary bladder w all is thickened and trabeculated, and there is significant post voi d residual of 809 mL. Findings suggest long-standing outlet obstruction. The left ureteral jet was not visualized, a nonspecific finding. 4. There is signific ant prostate enlargement with estimated volume of 101 mL. Electronically zee d by: Nikolai Chase MD 09/30/2024 01:56 PM EST RP Addendum Dictated By : Nikolai Chase MD Addendum Signed By: <Electronically signed by Nikolai Chase MD in OV> 09/30/24 1356 Addendum Cosigned By: DD/ TD/TT: 09/30/24 EXAMINATION: US RETROPERITONEAL COMPLETE (RENAL) CLINICAL INFORMATION: Hydroureter, prostatism. COMPARISON: Renal US 09/17/2024. CT abdomen and pelvi s 03/23/2024. Bladder ultrasound 03/23/2024. TECHNIQUE: Real-time imaging of the kidneys and bladder. FINDINGS: RIGHT KIDNEY: 12.2 x 5.9 x 5.7 cm (SAG x AP x TRV). The kidney is normal in size, cont our, and echogenicity. Renal cortical thickness is normal. No focal suspicious lesion. There is a lower pole 0.2 cm calculus. There is m ild hydronephrosis, and hydroureter all the way to the level of the rig ht UVJ. No definite obstructing lesion evident. LEFT KIDNEY: 13.9 x 5.5 x 7.0 cm (SAG x AP x TRV). The kidney is normal in size, contour, an d echogenicity. Renal cortical thickness is normal. No calculi or focal parenchymal lesions. There is mild hydronephrosis and hydroureter all the way to the level of the left UVJ. No definite obstructing lesion evident. BLADDER: Bladder is well distended, however there is trabeculation of the bladder wall wit h mild bladder wall thickening, likely on the basis of long-standing out let obstruction. Right ureteral jet was noted. The left could not be se en. Prevoid bladder volume is 1062 mL. Postvoid bladder volume is 80 9 mL. Prostate is significantly enlarged with estimated volume of 101 mL. Median lobe protrude s into the bladder base. U S/US retroperitoneal comp IMPRESSION: 1. Bilateral mild hydronephrosis and diffuse bilateral hydroureter to the level of the bilateral UVJs. No definite obstructing lesion evident. 2. Nonobstructing 2 mm left renal calculus. 3. Urinary bladder w all is thickened and trabeculated, and there is significant post voi d residual of 109 mL. Findings suggest long-standing outlet obstruction. The left ureteral jet was not visualized, a nonspecific finding. 4. There is signific ant prostate enlargement with estimated volume of 101 mL. Electronically zee d by: Nikolai Chase MD 09/30/2024 11:28 AM EST RP Dictated By: Nikolai Chase MD Signed By: <Electronically signed by Nikolai Chase MD in OV> 09/30/24 1128 DD/ 1037 TD/TT: 09/30/24 1117 [employer]er: US retroperitoneal comp Reviewed date:12/06/2024 12:13:01 PM Interpretation: Performing Lab: Notes/Report: [facility] [address] [facility] 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 Left kidney normal size and echotexture, 11.6 cm length. Moderate hydronephrosis of bilateral kidneys. Normal color Doppler. Urinary bladder diverticula noted, otherwise unremarkable. Prevoid volume 366 mL. Postvoid volume 490 mL. Bilateral ureteral jets are not visualized. Prostate measures 6.3 x 5.4 x 4.8 cm IMPRESSION: 1. Bilateral hydronephrosis, etiology indeterminate. Correlate for bladder outlet obstruction This document has been electronically signed by: Jose Spear MD on 12/04/2024 08:31:06 Dictated By: Jose Spear MD Signed By: <Electronically signed by Jose Spear MD in OV> 12/04/24830 DD/ 0 TD/TT: 12/04/24830 Field Crop Grower: [facility] [address] [place] [address] 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 Left kidney normal s ize and echotexture, 11.6 cm length. Moderate hydronephro sis of bilateral kidneys. Normal color Doppler. Urinary bladder diverticula noted, otherwise unremarkable. Prevoid volume 366 mL. Postvoid vol ume 490 mL. Bilateral ureteral j ets are not visualized. Prostate measures 6. 3 x 5.4 x 4.8 cm IMPRESSION: 1. Bilateral hydronephrosis, etiology indeterminate. Correlate for bladder outlet obstruction This document has be en electronically signed by: Jose Spear MD on 12/04/2024 08:31:06 Dictated By: Mj Spear MD Signed By: <Electronically signed by Jose Spear MD in OV> 12/04/24830 DD/ 0 TD/TT: 12/04/24830 Field Crop Grower: Reason For Referral No Information Medications Medication SIG (Take, Route, Frequency, Duration) Notes Start Date End Date Status Simvastatin 40 MG TAKE 1 TABLET BY LYNN TH EVERY EVENING for 90 Active Finasteride 5 MG take 1/2 tablet Oral Once a day for 30 days Not-Takin g Alfuzosin HCl ER 10 MG 1 tablet immediat [place] after the same meal Orally Once a day for 30 day(s) Active Aspirin Adult Low Strength 81 MG 0.5tablet Orally every other day Active Lisinopril 20 MG TAKE 1 TABLET BY [...] Vaccine Route Administration Date Status Comme nts Flu Vaccine IM Intramuscular 04/30/2013 Administered zFluzone Quadrivalent IM Intramuscular 06/13/2015 Administ ered PPSV23 (Pnemovax) IM Intramuscular 06/20/2015 Administered Fluarix Quadrivalent IM Intramuscular 07/09/2016 Administe red Fluarix Quadrivalent IM Intramuscular 07/01/2017 Administe red Prevnar 13 IM Intramuscular 08/12/2017 Administered Influenza High Dose IM Intramuscular 05/28/2019 Administer ed Influenza High Dose Unknown 05/08/[address] [facility] Covid Vaccine Unknown 09/28/2020 Administered Moderna Covid Vaccine Unknown 10/26/2020 Administered Moderna PPSV23 (Pnemovax) IM Intramuscular 12/21/2020 Administered Influenza High Dose Unknown 05/21/2021 [address] [facility] Fluarix Quadrivalent IM Intramuscular 05/20/2023 Administe red Fluarix Quadrivalent - 150 IM Intramuscular 06/11/2024 Administered Social History Tobacco Use: Social History Observation Description Date Details (start date - stop date) Never Smoker NA - NA Tobacco Use/Smoking Question Answer Notes Patient is a nonsmoker Additional Findings: Tobacco Non-User Cu rrent non-smoker, currently using no form of tobacco Alcohol Screen Question Answer Notes Did you have a drink containing alcohol in the p ast year? No Points 0 Interpretation Negative Problems Problem Type SNOMED Code ICD Code Onset Dates Problem Status W/U Status Risk Notes Problem Prostatism (80488554) Prostatism (N40.0) Active confirmed Problem 03819041 Vitamin D defici ency (E55.9) Active confirmed Problem Hypercalcemia (20198651) Hypercalcemia (E83.52) Active confirmed Problem 97579335 Hydroureter (N13.4) Active confirmed Problem 52182171 Essential hypert ension (I10) Active confirmed Problem 421960351 Low HDL (under 4 0) (E78.6) Active confirmed Problem Hyperparathyroid ism (E21.3) Active confirmed Problem 395563484 History of hemat uria (Z87.448) Active confirmed Problem 587089674 Bladder outlet obstruction (N32.0) Active confirmed Problem 872049785 Pure hypercholesterolemia (E78.00) Active confirmed Problem 349626164 Type 2 diabetes mellitus without complication, without long-term current use of insulin (E11.9) Active confirmed Problem 825395559 Benign prostatic hyperplasia, unspecified whether lower urinary tract symptoms present (N40.0) Active confirmed Vital Signs Blood pressure diastolic 90 mm Hg 09/24/2024 jessie ght is up 7 pounds since 06-11-24 Height 73 in 09/24/2024 weight is up 7 pounds since 06-11-24 Blood pressure systolic 178 mm Hg 09/24/2024 weig ht is up 7 pounds since 06-11-24 Weight 241 lbs 09/24/2024 weight is up 7 pounds since 06-11-24 BMI 31.79 kg/m2 09/24/2024 weight is up 7 pounds since 06-11-24 Encounters Encounter Location Date Provider Diagnosis Moses Fields MD [address] [place] [address] [id number] 12/26/2023 Moses Fields Blood tests for rout ine general physical examination Z00.00 ; Essential hypertension I10 ; Pure hypercholesterolemia E78.00 ; Type 2 diabetes mellitus without complication, without long-term current use of insulin E11.9 ; Prostatism N40.0 and Vitamin D deficiency E55.9 Moses Fields MD [address] [place] [address] [id number] 07/05/2024 Moses Fields Pure hypercholestero lemia E78.00 and Type 2 diabetes mellitus without complication, without long-term current use of insulin E11.9 Moses Fields MD [address] [place] [address] [id number] 01/02/2024 Moses Fields Elevated PSA R97.20 ; Annual physical exam Z00.00 ; Hyperparathyroidism E21.3 ; Vitamin D deficiency E55.9 ; Gross hematuria R31.0 ; Essential hypertension I10 ; Pure hypercholesterolemia E78.00 and Type 2 diabetes mellitus without complication, without long-term current use of insulin E11.9 Moses Fields MD [address] [place] [address] [id number] 02/09/2024 Moses Fields Bladder outlet obstr uction N32.0 and Gross hematuria R31.0 Moses Fields MD [address] [place] [address] [id number] 04/19/2024 Moses Fields Bladder outlet obstr uction N32.0 and Gross hematuria R31.0 Moses Fields MD [address] [place] [address] [id number] 06/11/2024 Moses Fields Essential hypertensi on I10 ; Prostatism N40.0 and Encounter for immunization Z23 Moses Fields MD [address] [place] [address] [id number] 09/24/2024 Moses Fields Hydroureter N13.4 ; Essential hypertension I10 and Prostatism N40.0 Moses Fields MD [address] [place] [address] [id number] 01/02/2024 Moses Fields MD [address] [place] [address] [id number] 03/23/2024 Moses Fields MD [address] [place] [address] [id number] 04/02/2024 Moses Fields MD [address] [place] [address] [id number] 09/02/2024 Moses Fields MD [address] [place] [address] [id number] 09/21/2024 Moses Fields Benign prostatic hyperplasia, unspecified whether lower urinary tract symptoms present N40.0 and Prostatism N40.0 Moses Fields MD [address] [place] [address] [id number] 09/30/2024 Moses Fields MD [address] [place] [address] [id number] 09/30/2024 Moses Fields Assessments Encounter Date Diagnosis (ICD Code) Assessment Notes Treatment Notes Treatment Clinical Notes Section Notes 12/26/2023 [address] tests [address] ine general physical examination (ICD-10 - Z00.00) 12/26/2023 Essential hypertensi on (ICD-10 - I10) 07/05/2024 Pure hypercholesterolemia (ICD-10 - E78.00) 07/05/2024 Type 2 diabetes mellitus without complication, without long-term current use of insulin (ICD-10 - E11.9) 01/02/2024 Elevated PSA (ICD-10 - R97.20) is going to see urologist this month. is aware of risk of prostate cancer 01/02/2024 Annual physical exam (ICD-10 - Z00.00) labs reviewed and discussed with patient 02/09/2024 Bladder outlet obstruction (ICD-10 - N32.0) discussed findings of recent CT with patient, US bladder order faxed to [facility] CS dept, Total time spent on the date of the encounter is 35 minutes including both face to face time spent and time spent reviewing documentation, pertinent lab data, studies and counseling the patient. 02/09/2024 Gross hematuria (ICD -10 - R31.0) needs cysto/ patient has an appt with Dr. Valladares in 04/19/2024 Bladder outlet obstruction (ICD-10 - N32.0) going to see urology/ HAS NOt been seen by urology since the er visit. the us failed to show a jet in one of the ureters. if the urologist don't repeat that will do that ourself. i told him i am not sure that not keeping the bladder drained was a good idea as it may be important to let the bladder shrink. he will discuss this with urology 04/19/2024 Gross hematuria (ICD -10 - R31.0) is going to see urology 06/11/2024 Essential hypertensi on (ICD-10 - I10) is a little high,will continue current regiment and will continue to monitor 06/11/2024 Prostatism (ICD-10 - N40.0) needs us kidney and bladder with postvoid residual in 3 months, will continue current regiment 09/24/2024 Hydroureter (ICD-10 - N13.4) need us bladder and ureters with post void residual/ he is going to make appt with dr valladares 09/21/2024 Benign prostatic hyperplasia, unspecified whether lower urinary tract symptoms present (ICD-10 - N40.0) 12/26/2023 Pure hypercholesterolemia (ICD-10 - E78.00) 01/02/2024 Hyperparathyroidism (ICD-10 - E21.3) is followed by dr morton and he didn't think he should do anything 06/11/2024 Encounter for immunization (ICD-10 - Z23) flu vaccine adminstered 09/24/2024 Essential hypertensi on (ICD-10 - I10) patient verbalized understnding os medication and directions for use 09/21/2024 Prostatism (ICD-10 - N40.0) 12/26/2023 Type 2 diabetes mellitus without complication, without long-term current use of insulin (ICD-10 - E11.9) 01/02/2024 Vitamin D deficiency (ICD-10 - E55.9) is doing well at present, will continue to monitor 09/24/2024 Prostatism (ICD-10 - N40.0) pending diagnostioc testing 12/26/2023 Prostatism (ICD-10 - N40.0) 01/02/2024 Gross hematuria (ICD -10 - R31.0) was after a lot of heavy lifting. had this 5 or 6 years ago and had a ct and cysto. had episode where he was straining at the stool and blood came out and it dripped in bowl/ needs to get cysto again. THE ORDER HAS BEEN FAXED TO [facility] WITH THE RECENT LABS FOR SCHEDULING , PATIENT AWARE 12/26/2023 Vitamin D deficiency (ICD-10 - E55.9) 01/02/2024 Essential hypertensi on (ICD-10 - I10) 01/02/2024 Pure hypercholesterolemia (ICD-10 - E78.00) stable, will continue current regiment 01/02/2024 Type 2 diabetes mellitus without complication, without long-term current use of insulin (ICD-10 - E11.9) stable, will continue current regiment Plan Of Treatment Pending Test Test Name Order Date Electrocardiogram (EKG) 08/21/2017 Electrocardiogram (EKG) 10/22/2018 CT ABD & PELVIS WWO CONTRAST 01/02/2024 BONE DENSITY DEXA 01/17/2022 RENAL US WITH BLADDER 09/24/2024 US bladder 09/21/2024 Future Test Test Name Order Date US bladder 03/08/2024 US RENAL BILATERAL 09/11/2024 Next Appt Details Provider Name:Moses P Lizmaged ier, 12/30/2024 08:00:00 AM, [address] [facility], [address], [place], [place], [phone], Provider Name:Moses Lynn ier, 01/06/2025 08:30:00 AM, [address] [facility], [address], [place], [place], [phone], Insurance Providers Payer Name Payer Address Payer Phone Subscriber Number Group Number Insured Name Patient Relationship to Insured Coverage Start Date Coverage End Date [employer] [address] [place], [place] [id number] BALA [id number] Self - patient is the insured Medical (General) History Medical History History ICD Code hematuria [address] of kid neys but refused to see urologist and was only on underwear and not in bowl 04/01/2006 -colonoscopy; repeat in 10 yea rs; 11/27/18 has a negative Cologuard Cystoscopy 07/24/16 w/Dr. Valladares
--- OUTSIDE RECORDS SUMMARY | 2024-12-14 08:50 | XMS_ITS ---
Author Organization Moses Fields MD Address [address] [place] [phone] Care Team Providers Care Driver Service Technician Name Role Phone Moses Fields Primary Care Provider Encounters Encounter Location Date Provider Diagnosis Moses Fields MD [facility] [address] [place] [phone] 09/30/2024 Moses Fields Plan Of Treatment Next Appt Details Provider Name:Moses Lynn ietruman, 12/30/2024 08:00:00 AM, [address] [place] [address], [address] [place] [address], [phone], Provider Name:Moses Lynn ier, 01/06/2025 08:30:00 AM, [address] [place] [address], [place] [address], [place], [place], [phone], Progress Notes * BALA WILSONDOB:1950 (74 yo M)Acc No.[id number]:09/30/2024 Patient:?BALA WILSON :1950???Age:74 Y???Sex:Male Address: [address], [place], [place], [address] * true * Date:? Generated for Darek major/Clayton/Raheemsmitting on:?12/14/2024 08:49 AM EDT
== END 2024-12-14 09:26 | disposition home or self-care (01) ==
LOC: HO.HUSH 08:33
PROVIDERS: PCP Internal Medicine; Visit Provider Urology
DX: N13.30 Unspecified hydronephrosis (principal)
CPT/HCPCS: 99213; G2211

== ENCOUNTER → 2024-12-14 08:33 | Outpatient (BNVA) | payer MEDICARE, SELFPAY | PROVIDERS: PCP Internal Medicine; Visit Provider Urology | DX: N13.30 Unspecified hydronephrosis (principal) | CPT/HCPCS: 51798; 99212 ==

== ENCOUNTER 2024-12-31 11:27 | Outpatient (REF) | payer MEDICARE, SELFPAY ==
[2024-12-31 11:30] LABS: MANUAL DIFF FLAG NO
[2024-12-31 11:44] LABS: Basophils Absolute Auto 0.1 X10*3/uL (0.0-0.2); Basophils Percent Auto 0.7 % (0-2); Eosinophils Absolute Auto 0.2 X10*3/uL (0.0-0.4); Eosinophils Percent Auto 2.5 % (0-4); Hematocrit 42.1 % (42.0-52.0); Hemoglobin 14.5 g/dl (14.0-18.0); Imm Gran Abs Auto 0.02 X10*3/uL (0.00-0.03); Imm Gran Pct Auto 0.3 % (0.0-0.4); Lymphocytes Absolute Auto 2.1 X10*3/uL (1.2-4.9); Lymphocytes Percent Auto 28.3 % (20-40); Mean Corpuscular HGB Conc 34.4 g/dl (31.0-36.0); Mean Corpuscular Hemoglobin 30.4 pg (27.0-33.0); Mean Corpuscular Volume 88.3 fL (80.0-98.0); Mean Platelet Volume 9.9 fL (9.4-12.4); Monocytes Absolute Auto 0.6 X10*3/uL (0.1-1.2); Monocytes Percent Auto 8.8 % (2-11); Neutrophils Absolute Auto 4.3 x10*3/uL (2.0-8.3); Neutrophils Percent Auto 59.4 % (45-73); Platelet Count 227 X10*3/uL (160-400); Red Blood Count 4.77 X10*6/uL (4.60-5.80); Red Cell Distribution Width 12.9 % (11.0-16.0); White Blood Count 7.3 X10*3/uL (4.8-10.8)
[2024-12-31 11:47] LABS: Appearance Urine Clear; Color Urine Yellow; Glucose Urine UA Negative (Negative); Nitrite Urine Negative (Negative); Urine Blood Negative (Negative); Urine Ketones Negative (Negative); Urine Protein Negative (Neg-Trace)
[2024-12-31 11:48] LABS: Leukocyte Esterase Urine Trace (Negative); UMIC TRIGGER UACC YES
[2024-12-31 11:52] LABS: Bacteria Urine None Seen (None Seen); Hyaline Casts Urine 0-2 /LPF (0-2); RBC Urine 0-2 /HPF (0-2); Squamous Epithelial Cell Urine 0-2 /HPF (0-2); WBC Urine 0-5 /HPF (0-5)
[2024-12-31 12:08] LABS: Creatinine Urine 53.06 mg/dL; Estimated Average Glucose 123 mg/dL; Hemoglobin A1c % 5.9 % (<6.0); Microalbumin Urine < 5.0 mg/L; Total Hemoglobin (HGBA1C) 3638.2874 umol/L
--- OUTSIDE RECORDS SUMMARY | 2024-12-31 12:22 | XMS_ITS | Clinical Summary ---
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 08/30/2022 Active lisinopril-hydr oCHLOROthiazide 20-12.5 MG tablet Take 1 tablet by mouth in the morning. Active amoxicillin (Amoxil) 500 MG capsule Take 1 capsule (500 mg) by mouth every 8 (eight) hours for 7 days. 21 capsule 12/20/2024 12/28/19 25 acetaminophen (Tylenol 8 Hour) 650 MG ER tablet Take 1 tablet (650 mg) by mouth every 8 (eight) hours if needed for mild pain for up to 10 days. Do not crush, chew, or split. 30 tablet 12/20/2024 12/31/19 25 ibuprofen 600 MG tablet Take 1 tablet (600 mg) by mouth every 8 (eight) hours if needed for mild pain for up to 10 days. 30 tablet 12/20/2024 12/31/19 25 Active Problems No known active problems Encounters Date Type Department Care Team Description 12/20/2024 8:00 AM EDT Office Visit [facility] [address] [place] [phone] Latrell Mosqueda BDS Dental caries (Primary Dx) 12/06/2024 9:00 AM EDT Office Visit [facility] [address] [place] [phone] Winifred Jimenez from Last 3 Months Social [...] Care Team (Late st Contact Info) Description 01/05/2025 8:00 AM EDT Office Visit [facility] [address] [place] [phone] Latrell Mosqueda BDS [address] [place] [phone] 06/13/2025 9:00 AM EST Office Visit [facility] [address] [place] [phone] Winifred Jimenez [address] [place] [phone] Health Maintenance Due Date Last Done Comments [...] DNA/Cologuard 01/15/2025 01/15/2022 Dental X-Ray: Bitewings 05/27/2025 05/26/20, 02/13/2023, 10/14/2022 Dental Oral Exam 06/09/2025 12/06/2024, , 10/14/2022 Dental Prophylaxis 06/09/2025 12/06/2024, 1 , 10/08/2023, Additional history exists Tobacco Screening 12/20/2025 12/20/2024 RSV Patients and Patients Aged 60 years [...] patient's age to complete this topic Meningococcal B Vaccine Aged Out No l onger eligible based on patient's age to complete [...] Procedure Name Priority Date/Time Associated Diagnosis Comments 21 MDB RESIN-BASED COMPOSITE - 3 SURF, POSTERIOR Routine 12/20/2024 8:00 AM EDT PERIODIC ORAL EVALUATION - ESTABLISHED PATIENT Routine 12/06/2024 9:00 AM EDT INTRAORAL - PERIAPICAL FIRST RADIOGRAPHIC IMAGE Routine 12/06/2024 9:00 AM EDT PROPHYLAXIS - ADULT Routine 12/06/2024 9 :00 AM EDT BITEWINGS - 4 RADIOGRAPHIC IMAGES Routine 05/26/2024 2:00 PM EDT from Last 3 Months or Most Recently Relevant to Health Maintenance Insurance DENTAL - [place]
[2024-12-31 12:32] LABS: Alanine Aminotransferase 34 U/L (0-40); Albumin Level 4.8 g/dL (3.5-5.0); Alkaline Phosphatase 56 U/L (39-117); Anion Gap 12 (12-20); Aspartate Amino Transferase 25 U/L (5-37); Bilirubin Total 0.7 mg/dL (0.0-1.0); Blood Urea Nitrogen 21 mg/dL (9-16); Calcium 10.8 mg/dL (8.4-10.2); Carbon Dioxide 26 mmol/L (22-29); Chloride 108 mmol/L (96-108); Cholesterol 138 mg/dL (<200); Estimated Glomerular Filt Rate > 60; Glucose Fasting 108 mg/dL (60-99); HDL Cholesterol 41 mg/dL (>40); LDL Cholesterol Calculated 63 mg/dL (<100); Potassium 4.1 mmol/L (3.3-5.1); Sodium 142 mmol/L (135-145); Total Protein 7.4 g/dL (6.5-8.0); Triglycerides 171 mg/dL (<150)
[2024-12-31 12:57] LABS: Vitamin D 25-OH Total 26.7 ng/mL (>30)
== END 2024-12-31 11:28 | disposition home or self-care (01) ==
LOC: HO.LNP 11:27
PROVIDERS: Visit Provider Internal Medicine
DX: Z00.00 Encounter for general adult medical examination without abnormal findings (principal); I10 Essential (primary) hypertension; Z12.5 Encounter for screening for malignant neoplasm of prostate; E78.00 Pure hypercholesterolemia, unspecified; E11.9 Type 2 diabetes mellitus without complications; N40.0 Benign prostatic hyperplasia without lower urinary tract symptoms; E55.9 Vitamin D deficiency, unspecified
CPT/HCPCS: 80053; 80061; 81001; 82043; 82306; 82570; 83036; 84153; 85025

== ENCOUNTER 2025-03-28 10:55 | Outpatient (REF) | payer MEDICARE, SELFPAY ==
--- OUTSIDE RECORDS SUMMARY | 2025-02-11 05:46 | XMS_ITS ---
Author Organization Moses Fields MD Address [address] [place] [phone] Care Team Providers Care Research Leader Name Role Phone Moses Fields Primary Care Provider REASON FOR VISIT High BP Encounters Encounter Location Date Provider Diagnosis Moses Fields MD [facility] [address] [place] [phone] 02/11/2025 Moses Fields Plan Of Treatment Next Appt Details Provider Name:Moses Lynn ier, 07/04/2025 10:00:00 AM, [address] [place] [address], [address] [place] [address], [phone], Provider Name:Moses Lynn ier, 01/03/2026 07:15:00 AM, [address] [place] [address], [address], [phone], Provider Name:Moses Lynn ier, 01/10/2026 09:30:00 AM, [address] [place] [address], [address], [phone], Progress Notes * FABRICIO WILSON:1950 (74 yo M)Acc No.[id number]:02/11/2025 Patient: BALA PARHAM :1950 A ge:74 Y S ex:Male Address:[address] [place] [address] , [place], [place], [place] [address] * true * Date: Generated for Darek major/Clayton/Raheemsmitting on: 0 03/28/2025 12:14 PM EDT
--- OUTSIDE RECORDS SUMMARY | 2025-03-28 12:14 | XMS_ITS | Clinical Summary ---
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 Active Active Problems No known active problems Social History Tobacco Use Types Packs/Day Years [...] Care Team (Late st Contact Info) Description 06/13/2025 9:00 AM EST Office Visit [facility] [address] [place], [place] [phone] Winifred Jimenez [address] [place], [place] [phone] Health Maintenance Due Date Last Done Comments [...] Cancer Screening 01/15/2025 FIT DNA/Cologuard 01/15/2025 01/15/2022 Influenza Vaccine (#1) 2025 , 05/20/2023, 05/31/2022, Additional history exists Dental X-Ray: Bitewings 05/27/2025 05/26/20 24, 02/13/2023, [...] Associated Diagnosis Comments PROPHYLAXIS - ADULT Routine 12/06/2024 9 :00 AM EDT PERIODIC ORAL EVALUATION - ESTABLISHED PATIENT Routine 12/06/2024 9:00 AM EDT BITEWINGS - 4 RADIOGRAPHIC IMAGES Routine 05/26/2024 2:00 PM EDT from Last 3 Months or Most Recently Relevant to Health Maintenance Insurance D[place] - [employer] [place]
--- OUTSIDE RECORDS SUMMARY | 2025-03-28 12:15 | XMS_ITS | Clinical Summary ---
Author Organization [facility] [address] [facility] Address [address] [place] [address] Phone Care Team Providers Care Manager Pet Name Role Phone Moses Fields MD Primary Care Provider Allergies No known active allergies Medications alfuzosin (UROXATRAL) 10 mg 24 hr tablet Take 1 tablet (10 mg total) by mouth 1 (one) time each day. Do not crush, chew, or split. Active aspirin 81 mg EC tablet Take 1 tablet (81 mg total) by mouth 1 (one) time each day. Active finasteride (PROSCAR) 5 mg tablet Take 1 tablet (5 mg total) by mouth 1 (one) time each day. Do not crush, chew, or split. Active simvastatin (ZOCOR) 40 mg tablet Take 1 tablet (40 mg total) by mouth at bedtime. Active amLODIPine (NORVASC) 5 mg tablet Take by mouth 1 (one) time each day. Active bisacodyL (DULCOLAX) 5 mg EC tablet Take 2 tablets by mouth right before beginning bowel prep. See instructions provided by the office 2 tablet 5 Active polyethylene glycol (Golytely) 236-22.74-6.74 -5.86 gram solution Take 4L by mouth once for one dose. May substitue any PEG. Starting at 2PM the day before your procedure drink 1 8oz glasses at your own pace until you complete half of the gallon. Finish 2nd half of the gallon at 8PM. 4000 mL 5 Active atorvastatin (LIPITOR) 40 mg tablet Take 1 tablet (40 mg total) by mouth at bedtime. Active multivitamin tablet Take 1 tablet by mouth 1 (one) time each day. Active Encounters Date Type Department Care Team Description 03/16/2025 7:28 AM EDT Anesthesia Event [facility] Endoscopy [address] [place] [phone] Nnamdi Duron MD 03/16/2025 6:43 AM EDT - 03/16/2025 11:59 PM EDT Hospital Encounter [facility]oscopy [address] [place] [phone] Mitch Tate MD Johnson, Lorraine, CRNA Positive colorectal cancer screening using Cologuard test Discharge Disposition: Home or Self Care 02/07/2025 Telephone Gastroenterology - [address] [facility] [address] [facility] [address] [place] [phone] Mitch Tate MD SPECIAL PROCEDURES-- POS COLOGUARD from Last 3 Months Surgical History Surgery Date Site/Laterality Comments TONSILLECTOMY COLON SURGERY Medical History Medical History Date Comments Essential hypertension DX:Essent ial hypertension BPH (benign prostatic hyperplasia) Family History Medical History Relation Name Comments Blindness Neg Hx Cataracts Neg Hx Glaucoma Neg Hx Macular degeneration Neg Hx Strabismus Neg Hx Social History Tobacco Use Types Packs/Day Years Used Date Smoking Tobacco: Never Interpersonal Safety Answer Date Record ed Physical Abuse 03/16/2025 Verbal Abuse 03/16/2025 Sex and Gender Information Value Date Recorded Sex Assigned at Male 03/16/2025 6:41 AM EDT Legal Sex Male 2:30 AM EST Gender Identity Male 03/16/2025 6:41 AM EDT Sexual Orientation Straight 03/16/2025 6: 41 AM EDT Obstetrics History Last Filed Vital Signs Vital Sign Reading Time Taken Comments Blood Pressure 161/88 03/16/2025 8:07 AM EDT Pulse 61 03/16/2025 8:07 AM EDT Temperature 36.7 C (98.1 F) 03/16/2025 7:01 AM EDT Respiratory Rate 16 03/16/2025 8:07 AM EDT Oxygen Saturation 98% 03/16/2025 8:07 AM EDT Inhaled Oxygen Concentration - - Weight 104 kg (230 lb) 03/16/2025 7:01 AM EDT Height 188 cm (6' 2 ) 03/16/2025 7:01 AM EDT Body Mass Index 29.53 03/16/2025 7:01 AM EDT Plan of Treatment Health Maintenance Due Date Last Done Comments DTaP,Tdap,and Td Vaccines (1 - Tdap) 1970 Pneumococcal Vaccine: 50+ Years (1 of 1 - PCV) 2001 Zoster Vaccines (1 of 2) 2001 COVID-19 Vaccine (1 - season) 2024 Cholesterol Screening (Lipid Panel) 06/29/2024 Hepatitis C Screening 06/29/2024 Medicare Annual Wellness Visit 06/29/2024 Social Influencers of Health Screening 06/29/2024 Depression Screening 08/04/2024 Influenza Vaccine (#1) 2025 RSV Immunization Adult Patients (1 - 1-dose 75+ series) 2026 Falls Risk Assessment 03/16/2026 03/16/2025 Colorectal Cancer Screening: Colonoscopy 03/16/2035 03/16/2025 Colorectal Cancer Screening: FIT-DNA (Cologuard) Discontinued 02/08/2025, 01/25/2025, 01/25/2025, Additional history exists HIB Vaccines Aged Out [...] on patient's age to complete this topic MMR Vaccines Aged Out No longer eligi ble based on patient's age to complete this topic Meningococcal ACWY Vaccine Aged Out N o longer eligible based on patient's age to complete this topic Meningococcal B Vaccine Aged Out No l onger eligible based on patient's age to complete this topic RSV Immunization Patients Under 20 months Aged Out No longer eligible based on patient's age to complete this topic Varicella Vaccines Aged Out No longer eligible based on patient's age to complete this topic Procedures Procedure Name Priority Date/Time Associated Diagnosis Comments COLONOSCOPY Routine 03/16/2025 7:46 AM EDT Positive colorectal cancer screening using Cologuard test EXTERNAL COLOGUARD (FIT-DNA) REPORT Routine 02/08/2025 2:17 PM EDT from Last 3 Months Results * COLONOSCOPY Anesthesia - MAC; [facility] ENDOSCOPY (03/16/2025 7:46 AM EDT) Anatomical Region Laterality Modality Endoscopy 03/16/2025 7:20 AM EDT Impressions 03/16/2025 7:46 AM EDT - Non-bleeding internal hemorrhoids. - The examination was otherwise normal on direct and retroflexion views. - No specimens collected. Recommendation: - Discharge patient to home. - Resume previous diet. - Continue present medications. - Repeat colonoscopy in 10 years for surveillance. - Return to GI office PRN. Narrative 03/16/2025 7:46 AM EDT [facility] GI Patient Name: Aaron Maddox Procedure Date: 03/16/2025 7:20 AM Date of : 1950 Age: 75 Room: ROOM 15 Gender: Male Note Status: Finalized Attending MD: Mitch Tate MD, Procedure Date No Time: 03/16/2025 Procedure: Colonoscopy Indications: Positive Cologuard test Providers: Mitch Tate MD Referring MD: Mitch Tate MD Medicines: Monitored Anesthesia Care Complications: No immediate complications. Estimated Blood Loss: Estimated blood loss: none. Procedure: Pre-Anesthesia Assessment: - ASA Grade Assessment: II - A patient with mild systemic disease. - After reviewing the risks and benefits, the patient was deemed in satisfactory condition to undergo the procedure. After I obtained informed consent, the scope was passed under direct vision. Throughout the procedure, the patient's blood pressure, pulse, and oxygen saturations were monitored continuously.The Colonoscope was introduced through the anus and advanced to the cecum, identified by appendiceal orifice and ileocecal valve. The colonoscopy was performed without difficulty. The patient tolerated the procedure well. The quality of the bowel preparation was adequate. Findings: Non-bleeding internal hemorrhoids were found during retroflexion. The hemorrhoids were medium-sized. The exam was otherwise without abnormality on direct and retroflexion views. Procedure Code(s): --- Professional --- 89363, Colonoscopy, flexible; diagnostic, including collection of specimen(s) by brushing or washing, when performed (separate procedure) Diagnosis Code(s): --- Professional --- R19.5, Other fecal abnormalities CPT copyright 2020 [employer]. All rights reserved. The codes documented in this report are preliminary and upon processor solid propellant review may be revised to meet current compliance requirements. Mitch Tate MD 03/16/2025 7:46:13 AM This report has been signed electronically.Mitch Tate MD Number of Addenda: 0 Note Initiated On: 03/16/2025 7:20 AM Scope In: Scope Out: Endoscopy Department at [facility] - [address] [place] [phone] Procedure Note Mitch Tate MD - 03/16/2025 [facility] GI Patient Name: Aaron Maddox Procedure Date: 03/16/2025 7:20 AM Date of : 1950 Age: 75 Room: ROOM 15 Gender: Male Note Status: Finalized Attending MD: Mitch Tate MD, Procedure Date No Time: 03/16/2025 Procedure: Colonoscopy Indications: Positive Cologuard test Providers: Mitch Tate MD Referring MD: Mitch Tate MD Medicines: Monitored Anesthesia Care Complications: No immediate complications. Estimated Blood Loss: Estimated blood loss: none. Procedure: Pre-Anesthesia Assessment: - ASA Grade Assessment: II - A patient with mild systemic disease. - After reviewing the risks and benefits, thepatient was deemed in satisfactory condition to undergo the procedure. After I obtained informed consent, the scope was passed under direct vision. Throughout theprocedure, the patient's blood pressure, pulse, and oxygen saturations were monitored continuously.The Colonoscope was introduced through the anus and advanced to the cecum, identified by appendiceal orifice and ileocecal valve. The colonoscopy was performed without difficulty. The patient tolerated the procedure well. The quality of the bowel preparation was adequate. Findings: Non-bleeding internal hemorrhoids were found during retroflexion. The hemorrhoids were medium-sized. The exam was otherwise without abnormality ondirect and retroflexion views. Procedure Code(s): --- Professional --- 82359, Colonoscopy, flexible; diagnostic, including collection of specimen(s) by brushing or washing,when performed (separate procedure) Diagnosis Code(s): --- Professional --- R19.5, Other fecal abnormalities CPT copyright 2020 [employer]. All rights reserved. The codes documented in this report are preliminary and upon processor solid propellant reviewmay be revised to meet current compliance requirements. Mitch Tate MD 03/16/2025 7:46:13 AM This report has been signed electronically.Mitch Tate MD Number of Addenda: 0 Note Initiated On: 03/16/2025 7:20 AM Scope In: Scope Out: Endoscopy Department at [facility] - [address] [place] [phone] IMPRESSION: - Non-bleeding internal hemorrhoids. - The examination was otherwise normal on directand retroflexion views. - No specimens collected. Recommendation: - Discharge patient to home. - Resume previous diet. - Continue present medications. - Repeat colonoscopy in 10 years forsurveillance. - Return to GI office PRN. Mitch Tate MD GI~PROCEDURE ORDERABLES Final Result * External Cologuard (FIT-DNA) Report (02/08/2025 2:17 PM EDT) Historical Provider LAB BODY FLUIDS AND STOOL S ORDERABLES Final Result from Last 3 Months Insurance BLUE CROSS - [place] MEDICARE AD[place]ANTAGE Care Teams Manager Pet Relationship Specialty Start Date End Date Moses Fields MD [address] [place] [address] [address] [place] [address] PCP - General Internal Medicine 02/07/25
[2025-03-28 13:52] LABS: Anion Gap 11 (12-20); Blood Urea Nitrogen 10 mg/dL (9-16); Calcium 10.3 mg/dL (8.4-10.2); Carbon Dioxide 25 mmol/L (22-29); Chloride 108 mmol/L (96-108); Estimated Glomerular Filt Rate > 60; Potassium 4.0 mmol/L (3.3-5.1); Sodium 140 mmol/L (135-145)
== END 2025-03-28 10:56 | disposition home or self-care (01) ==
LOC: HO.HMGCLDS 10:55
PROVIDERS: PCP Internal Medicine; Visit Provider Urology
DX: N13.2 Hydronephrosis with renal and ureteral calculous obstruction (principal)
CPT/HCPCS: 36415; 80048

== ENCOUNTER 2025-04-07 08:27 | Outpatient (AMB) | payer MEDICARE, SELFPAY ==
--- OUTSIDE RECORDS SUMMARY | 2024-09-30 10:03 | XMS_ITS ---
Author Organization Moses Fields MD Address [address] [place] [phone] Care Team Providers Care Manufacturing Coordinator Name Role Phone Moses Fields Primary Care Provider Encounters Encounter Location Date Provider Diagnosis Moses Fields MD [address] [facility] [address] [place] [phone] 09/30/2024 Moses Fields Plan Of Treatment Next Appt Details Provider Name:Moses Lynn ietruman, 07/04/2025 10:00:00 AM, [address] [place] [address], [address] [place] [address], [phone], Provider Name:Moses Lynn ier, 01/03/2026 07:15:00 AM, [address] [place] [address], [address], [phone], Provider Name:Moses valdivia, 01/10/2026 09:30:00 AM, [address] [place] [address], [address], [phone], Progress Notes * BALA WILSONDOB:1950 (74 yo M)Acc No.[id number]:09/30/2024 Patient: Farnaz BALA SIMMONS :1950 A ge:74 Y S ex:Male Address: [address], [place], [address] * true * Date: Generated for Darek major/Clayton/Raheemsmitting on: 0 04/07/2025 08:53 AM EDT
--- OUTSIDE RECORDS SUMMARY | 2024-12-31 04:00 | XMS_ITS ---
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 Role Phone Moses Fields Primary Care Provider Results Component Value Reference Range Notes Complete Blood Count Auto Di ff Reviewed date:12/31/2024 04:13:59 PM Interpretation: Performing Lab:[facility], [address] [place] [phone] Notes/Report: White Blood Count 7.3 4.8-10.8 X10*3/uL Red Blood Count 4.77 4.60-5.80 X10*6/uL Hemoglobin 14.5 14.0-18.0 g/dl Hematocrit 42.1 42.0-52.0 % Mean Corpuscular Volume 88.3 80.0-98.0 fL Mean Corpuscular Hemoglobin 30.4 27.0-33.0 pg Mean Corpuscular HGB Conc 34.4 31.0-36.0 g/dl Red Cell Distribution Width 12.9 11.0-16.0 % Platelet Count 227 160-400 X10*3/uL Mean Platelet Volume 9.9 9.4-12.4 fL Neutrophils Percent Auto 59.4 45-73 % Imm Gran Pct Auto 0.3 0.0-0.4 % Lymphocytes Percent Auto 28.3 20-40 % Monocytes Percent Auto 8.8 2-11 % Eosinophils Percent Auto 2.5 0-4 % Basophils Percent Auto 0.7 0-2 % NRBC Pct Auto 0.0 0.0-0.2 /100WBC Neutrophils Absolute Auto 4.3 2.0-8.3 x10*3/u L Imm Gran Abs Auto 0.02 0.00-0.03 X10*3/uL Lymphocytes Absolute Auto 2.1 1.2-4.9 X10*3/u L Monocytes Absolute Auto 0.6 0.1-1.2 X10*3/uL Eosinophils Absolute Auto 0.2 0.0-0.4 X10*3/u L Basophils Absolute Auto 0.1 0.0-0.2 X10*3/uL NRBC Abs Auto 0.000 0.0-0.012 X10*3/uL Comprehensive [place]. Panel Fa st Reviewed date:12/31/2024 01:29:04 PM Interpretation: Performing Lab:[facility], [address] [place] [phone] Notes/Report: Sodium 142 135-145 mmol/L Potassium 4.1 3.3-5.1 mmol/L Chloride 108 96-108 mmol/L Carbon Dioxide 26 22-29 mmol/L Anion Gap 12 12-20 Blood Urea Nitrogen 21 9-16 mg/dL Creatinine 0.93 0.5-1.4 mg/dL Estimated Glomerular Filt Rate > 60 Chronic Kidney Disease: Estimated GFR < 60 mL/min/1.73m2 Severe Kidney Disease: Estimated GFR < 15 mL/min/1.73m2 Glucose Fasting 108 60-99 mg/dL A fasting glucose from 100-125 mg/dl is considered impaired (pre-diabetes). Calcium 10.8 8.4-10.2 mg/dL Bilirubin Total 0.7 0.0-1.0 mg/dL Aspartate Amino Transferase 25 5-37 U/L Alanine Aminotransferase 34 0-40 U/L Total Protein 7.4 6.5-8.0 g/dL Albumin Level 4.8 3.5-5.0 g/dL Alkaline Phosphatase 56 39-117 U/L Lipid Panel Reviewed date:12/31/2024 01:29:12 PM Interpretation: Performing Lab:[facility], [address] [place] [phone] Notes/Report: Triglycerides 171 <150 mg/dL Desirable Triglyceride: less than 150 mg/dL Borderline High Triglyceride 150-199 mg/dL High Triglyceride: 200-499 mg/dL Very High Triglyceride: greater than or equal to 5OO mg/dL Cholesterol 138 <200 mg/dL Desirable Cholesterol: less than 200 mg/dL Borderline High Cholesterol: 200-239 mg/dL High Cholesterol: greater than 239 mg/dL LDL Cholesterol Calculated 63 <100 mg/dL Desirable LDL: less than 100 mg/dL Near Optimal/Above Optimal LDL: 110-129 mg/dL Borderline High LDL: 130-159 mg/dL High LDL: 160-189 mg/dL Very High LDL: greater than or equal to 190 mg/dL HDL Cholesterol 41 >40 mg/dL Desirable HDL: greater than 40 mg/dL Note: This HDL assay may give artificially low results in patients with liver disease. PSA,Total (Free>4and<10) Reviewed date:12/31/2024 04:11:13 PM Interpretation: Performing Lab:[facility], [address] [place] [phone] Notes/Report: PSA,Total (Free>4and<10) 3.50 0.00-4.00 ng/mL A Free PSA was not performed: The percentage of Free PSA can be used to enhance the differentiation of prostate cancer from benign prostatic disease in subjects whose PSA levels are between 4.0 and 10.0 ng/mL. For subjects whose PSA levels are below 4.0 or above 10.0 ng/mL, the risk of prostate cancer is determined on the basis of the PSA alone. Therefore the % Free PSA is recommended only for those subjects whose PSA levels are between 4.0 and 10.0 ng/mL. PSA methodology: Osborne Alinity i Chemiluminescent Microparticle Immunoassay (CMIA) Vitamin D 25-OH Total Reviewed date:12/31/2024 04:11:44 PM Interpretation: Performing Lab:[facility], [address] [place] [phone] Notes/Report: Vitamin D 25-OH Total 26.7 >30 ng/mL Health Based Reference Values* < 20 ng/mL Deficient 20-30 ng/mL Insufficient > 30 ng/mL Sufficient *Floyd HENSLEY. N Engl J Med. 2007;357:266-280 There is no well-established upper level of normal vitamin D levels. Some laboratories use 50 ng/mL as an upper limit of normal. However, toxicity is patient-dependent and may occur at any level. Careful correlation with the patient's presentation is necessary and, if there is concern for vitamin D toxicity, treatment should be considered irrespective of the serum level. Care must be taken in interpreting Vitamin [...] method such as LC-MS/MS. Microalbumin, Random Reviewed date:12/31/2024 12:50:53 PM Interpretation: Performing Lab:[facility], [address] [place] [phone] Notes/Report: Creatinine Urine 53.06 Microalbumin Urine < 5.0 Microalbum/Creatinine Ratio Ur TNP <30 ug/mg cr Unable to calculate albumin/creatinine ratio due to low microalbumin or creatinine result. Hemoglobin A1c Reviewed date:12/31/2024 12:49:44 PM Interpretation: Performing Lab:[facility], [address] [place] [phone] Notes/Report: Hemoglobin A1c % 5.9 <6.0 % [...] average glucose, using the formula of the L2T-Fjtmopp Average Glucose study (ADAG), Diabetes Care, Vol.31,#8, 2007 UA ClnCatch+Micro w/rflx Cul t Reviewed date:12/31/2024 04:16:30 PM Interpretation: Performing Lab:[facility], [address] [place] [phone] Notes/Report: Urine, Clean Catch Color Urine Yellow Appearance Urine Clear PH 6.0 5.0-9.0 Glucose Urine UA Negative Negative mg/dL Urine Blood Negative Negative Specific [place] - Urine 1.010 1.005-1.025 Urine Protein Negative Neg-Trace mg/dL Urine Ketones Negative Negative mg/dL Nitrite Urine Negative Negative Leukocyte Esterase Urine Trace Negative RBC Urine 0-2 0-2 /HPF WBC Urine 0-5 0-5 /HPF Squamous Epithelial Cell Urine 0-2 0-2 /HPF Bacteria Urine None Seen None Seen Hyaline Casts Urine 0-2 0-2 /LPF REASON FOR VISIT FASTING LABS Encounters Encounter Location Date Provider Diagnosis Moses Fields MD [address] [place] [address] [place] [phone] 12/31/2024 Moses Fields Blood tests for rout ine general physical examination Z00.00 ; Essential hypertension I10 ; Pure hypercholesterolemia E78.00 ; Type 2 diabetes mellitus without complication, without long-term current use of insulin E11.9 ; Prostatism N40.0 and Vitamin D deficiency E55.9 Assessments Encounter Date Diagnosis (ICD Code) Assessment Notes Treatment Notes Treatment Clinical Notes Section Notes 12/31/[address] tests [address] ine general physical examination (ICD-10 - Z00.00) 12/31/2024 Essential hypertensi on (ICD-10 - I10) 12/31/2024 Pure hypercholesterolemia (ICD-10 - E78.00) 12/31/2024 Type 2 diabetes phillip itus without complication, without long-term current use of insulin (ICD-10 - E11.9) 12/31/2024 Prostatism (ICD-10 - N40.0) 12/31/2024 Vitamin D deficiency (ICD-10 - E55.9) Plan Of Treatment Next Appt Details Provider Name:Moses valdivia, 07/04/2025 10:00:00 AM, [address] [place] [address], [address], [phone], Provider Name:Moses valdivia, 01/03/2026 07:15:00 AM, [address] [place] [address], [address], [place], [place], [phone], Provider Name:Moses Lynn ier, 01/10/2026 09:30:00 AM, [address], [address], [place], [phone], Progress Notes * BALA WILSONDOB:1950 (75 yo M)Acc No.[id number]:12/31/2024 Progress Note Patient: BALA PARHAM Provider: Mary Fields MD :1950 A ge:74 Y S ex:Male Date:12/31/2024 Address: [address], [facility] Subjective: * Chief Complaints: * 1 . FASTING LABS. * Medical History: Objective: * Vitals: Assessment: * Assessment: 1. B lood tests for routine general physical examination - Z00.00 (Primary) 2 .?Essential hypertension - I10 3 . P ure hypercholesterolemia - E78.00 ? 4 . T ype 2 diabetes mellitus without complication, without long-term current use of insulin - E11.9 5 . P rostatism - N40.0 6 . V itamin D deficiency - E55.9 Plan: * Treatment: 2. E ssential hypertension L AB: Complete Blood Count Auto Diff (Collection Date & Time - 12/31/2024 08:00 AM) L AB: Comprehensive [place]. Panel Fast (Collection Date & Time - 12/31/2024 08:00 AM) L AB: Lipid Panel (Collection Date & Time - 12/31/2024 08:00 AM) L AB: PSA,Total (Free>4and<10) (Collection Date & Time - 12/31/2024 08:00 AM) L AB: Vitamin D 25-OH Total (Collection Date & Time - 12/31/2024 08:00 AM) L AB: Microalbumin, Random (Collection Date & Time - 12/31/2024 08:00 AM) L AB: Hemoglobin A1c (Collection Date & Time - 12/31/2024 08:00 AM) L AB: UA ClnCatch+Micro w/rflx Cult (Collection Date & Time - 12/31/2024 08:00 AM) 3. P ure hypercholesterolemia L AB: Complete Blood Count Auto Diff (Collection Date & Time - 12/31/2024 08:00 AM) L AB: Comprehensive [place]. Panel Fast (Collection Date & Time - 12/31/2024 08:00 AM) L AB: Lipid Panel (Collection Date & Time - 12/31/2024 08:00 AM) L AB: PSA,Total (Free>4and<10) (Collection Date & Time - 12/31/2024 08:00 AM) L AB: Vitamin D 25-OH Total (Collection Date & Time - 12/31/2024 08:00 AM) L AB: Microalbumin, Random (Collection Date & Time - 12/31/2024 08:00 AM) L AB: Hemoglobin A1c (Collection Date & Time - 12/31/2024 08:00 AM) L AB: UA ClnCatch+Micro w/rflx Cult (Collection Date & Time - 12/31/2024 08:00 AM) 4. T ype 2 diabetes mellitus without complication, without long-term current use of insulin L AB: Complete Blood Count Auto Diff (Collection Date & Time - 12/31/2024 08:00 AM) L AB: Comprehensive [place]. Panel Fast (Collection Date & Time - 12/31/2024 08:00 AM) L AB: Lipid Panel (Collection Date & Time - 12/31/2024 08:00 AM) L AB: PSA,Total (Free>4and<10) (Collection Date & Time - 12/31/2024 08:00 AM) L AB: Vitamin D 25-OH Total (Collection Date & Time - 12/31/2024 08:00 AM) L AB: Microalbumin, Random (Collection Date & Time - 12/31/2024 08:00 AM) L AB: Hemoglobin A1c (Collection Date & Time - 12/31/2024 08:00 AM) L AB: UA ClnCatch+Micro w/rflx Cult (Collection Date & Time - 12/31/2024 08:00 AM) 5. P rostatism L AB: Complete Blood Count Auto Diff (Collection Date & Time - 12/31/2024 08:00 AM) L AB: Comprehensive [place]. Panel Fast (Collection Date & Time - 12/31/2024 08:00 AM) L AB: Lipid Panel (Collection Date & Time - 12/31/2024 08:00 AM) L AB: PSA,Total (Free>4and<10) (Collection Date & Time - 12/31/2024 08:00 AM) L AB: Vitamin D 25-OH Total (Collection Date & Time - 12/31/2024 08:00 AM) L AB: Microalbumin, Random (Collection Date & Time - 12/31/2024 08:00 AM) L AB: Hemoglobin A1c (Collection Date & Time - 12/31/2024 08:00 AM) L AB: UA ClnCatch+Micro w/rflx Cult (Collection Date & Time - 12/31/2024 08:00 AM) 6. V itamin D deficiency L AB: Complete Blood Count Auto Diff (Collection Date & Time - 12/31/2024 08:00 AM) L AB: Comprehensive [place]. Panel Fast (Collection Date & Time - 12/31/2024 08:00 AM) L AB: Lipid Panel (Collection Date & Time - 12/31/2024 08:00 AM) L AB: PSA,Total (Free>4and<10) (Collection Date & Time - 12/31/2024 08:00 AM) L AB: Vitamin D 25-OH Total (Collection Date & Time - 12/31/2024 08:00 AM) L AB: Microalbumin, Random (Collection Date & Time - 12/31/2024 08:00 AM) L AB: Hemoglobin A1c (Collection Date & Time - 12/31/2024 08:00 AM) L AB: UA ClnCatch+Micro w/rflx Cult (Collection Date & Time - 12/31/2024 08:00 AM) * Procedure Codes: 3 6415 VENIPUNCT, ROUTINE* * * The named appointment provid er may or may not be the originator of this progress note, and it is not deemed complete until electronically signed by the appointment provider. Sign off status: Pending * Provider: Mary Fields MD Date: 0 12/31/2024 Generated for Darek major/Clayton/eTvismitting on: 0 04/07/2025 08:53 AM EDT
--- OUTSIDE RECORDS SUMMARY | 2025-01-06 04:30 | XMS_ITS ---
Author Organization Moses Fields MD Address [address] [place], [place] [id number] Care Team Providers Care Director Of Radio Services Name Role Phone Moses Fields Primary Care Provider Allergies No Known Allergies REASON FOR VISIT ANNUAL EXAM Medications Medication SIG (Take, Route, Frequency, Duration) Notes Start Date End Date Status Alfuzosin HCl ER 10 MG 1 tablet immediat [place] after the same meal Orally Once a day for 30 day(s) Active Finasteride 5 MG take 1/2 tablet Oral Once a day for 30 days Not-Takin g amLODIPine Besylate 5 MG TAKE 1 TABLET B Y MOUTH EVERY DAY FOR 30 DAYS Active Lisinopril-hydroCHLOROth iazide 20-12.5 MG TAKE 1 TABLET BY MOUTH EVERY DAY Orally Once a day for 90 days Not-Taking Simvastatin 40 MG TAKE 1 TABLET BY LYNN TH EVERY EVENING Active Finasteride 5 MG 1 tablet Orally Once a day Active Aspirin Adult Low Strength 81 MG 0.5tablet Orally every other day Active Lisinopril 20 MG TAKE 1 TABLET BY LYNN TH TWICE DAILY EVERY DAY Not-Taking Social History Tobacco Use: Social History Observation [...] ast year? No Points 0 Interpretation Negative Vital Signs Blood pressure systolic 156 mm Hg 01/07/20 25 Blood pressure diastolic 78 mm Hg 025 Height 73 in 01/06/2025 Weight 237 lbs 01/06/2025 BMI 31.26 kg/m2 01/06/2025 weight is down 4 pounds sinc e 09-24-24/ bp good at home Encounters Encounter Location Date Provider Diagnosis Moses Fields MD [address] [place] [address] [place] [phone] 01/06/2025 Moses Fields Annual physical exam Z00.00 ; Encounter for screening for malignant neoplasm of colon Z12.11 ; Encounter for screening for malignant neoplasm of rectum Z12.12 ; Essential hypertension I10 ; Hypercalcemia E83.52 ; Elevated PSA R97.20 ; Pure hypercholesterolemia E78.00 ; Type 2 diabetes mellitus without complication, without long-term current use of insulin E11.9 and Depression screening Z13.31 Assessments Encounter Date Diagnosis (ICD Code) Assessment Notes Treatment Notes Treatment Clinical Notes Section Notes 01/06/2025 Annual physical exam (ICD-10 - Z00.00) labs reviewed and discussed with patient 01/06/2025 Encounter for screen ing for malignant neoplasm of colon (ICD-10 - Z12.11) order faxed to [facility] 01/06/2025 Encounter for screen ing for malignant neoplasm of rectum (ICD-10 - Z12.12) 01/06/2025 Essential hypertensi on (ICD-10 - I10) running good at home, will contnue current regiment 01/06/2025 Hypercalcemia (ICD-1 0 - E83.52) stable, will continue to monitor 01/06/2025 Elevated PSA (ICD-10 - R97.20) will be seeing dr perry 01/06/2025 Pure hypercholesterolemia (ICD-10 - E78.00) stable, will continue current regiment 01/06/2025 Type 2 diabetes phillip itus without complication, without long-term current use of insulin (ICD-10 - E11.9) stable, will continue current regiment 01/06/2025 Depression screening (ICD-10 - Z13.31) negative screen Plan Of Treatment Medication Medication Name Sig Start Date Stop Date Notes amLODIPine Besylate 5 MG TAKE 1 TABLET B Y MOUTH EVERY DAY FOR 30 DAYS Simvastatin 40 MG TAKE 1 TABLET BY LYNN TH EVERY EVENING Finasteride 5 MG 1 tablet Orally Once a day Treatment Notes Assessment Notes Annual physical exam labs reviewed and d iscussed with patient Encounter for screening for malignant neoplasm of colon order faxed to [facility] Essential hypertension running good at h ome, will contnue current regiment Hypercalcemia stable, will continu e to monitor Elevated PSA will be seeing dr ethan oneal Pure hypercholesterolemia stable, will c ontinue current regiment Type 2 diabetes mellitus wit hout complication, without long-term current use of insulin stable, will continue current regiment Depression screening negative screen Pending Test Test Name Order Date [facility] 01/06/2025 Next Appt Details Follow Up: 6 Months, Reason: bp Provider Name:Moses valdivia, 07/04/2025 10:00:00 AM, [address] [place] [address], [address], [phone], Provider Name:Moses Lynn ier, 01/03/2026 07:15:00 AM, [address] [place] [address], [address], [phone], Provider Name:Moses Lynn ier, 01/10/2026 09:30:00 AM, [address] [place] [address], [address], [phone], Progress Notes * BALA WILSONDOB:1950 (74 yo M)Acc No.[id number]:01/06/2025 Progress Notes Patient: BALA PARHAM Provider: Mary Fields MD :1950 A ge:74 Y S ex:Male Date:01/06/2025 Address: [address], [id number] Subjective: * Chief Complaints: * A NNUAL EXAM * HPI: D epression Screening: PHQ-9 L ittle interest or pleasure in doing things N ot at all, F eeling down, depressed, or hopeless N ot at all, T rouble falling or staying asleep, or sleeping too much N ot at all, F eeling tired or having little energy N ot at all, P oor appetite or overeating N ot at all, F eeling bad about yourself or that you are a failure, or have let yourself or your family down N ot at all, T rouble concentrating on things, such as reading the newspaper or watching television N ot at all, M oving or speaking so slowly that other people could have noticed; or the opposite, being so fidgety or restless that you have been moving around a lot more than usual N ot at all, T houghts that you would be better off or of hurting yourself in some way N ot at all, T otal Score 0 . I nterpretation and Intervention D epression Screening Findings N egative, F ollow-Up for Depression : review of PHQ-9 found negative result, no follow-up needed. C ommunication Needs: Communication Needs D oes the patient have a hearing impairment Y es, I f yes, what is the hearing impairment? H maged of hearing, Hearing Aids, D oes the patient have a vision impairment? Y es, I f yes, what is the vision impairment? G lasses, D oes the patient have a cognition impairment? N o. F all Risk: History H ave you had any falls with injury in the past year? N o, H ave you had two or more falls in the past year? N o. S SUE Questions: SDOH Questions I n the past year have you been worried about losing housing? N o, I n the past year have you or any family members you live with been unable to get any of the following when it was really needed? Check all that apply: N one. S ymptom(s): patient is a 74 yo male here for annual visit with review of recent labs and follow up of chronic issues. * ROS: G eneral/Constitutional: Change in appetite d enies. C hills d enies. F ever d enies. O phthalmologic: Blurred vision d enies. D ischarge d enies. P ain d enies. E NT: Decreased hearing d enies. S ore throat d enies.?Swollen glands d enies. E ndocrine: Cold intolerance d enies. E xcessive thirst d enies. H eat intolerance d enies. W eight loss d enies. R espiratory: Cough d enies. S hortness of breath at rest d enies. S hortness of breath with exertion d enies. W heezing d enies. C ardiovascular: Chest pain at rest d enies. C hest pain with exertion?denies. I rregular heartbeat d enies. S hortness of breath d enies. ? G astrointestinal: Abdominal pain d enies. C hange in bowel habits d enies. D iarrhea d enies. N ausea d enies. R ectal bleeding d enies. V omiting d enies . G enitourinary: Blood in urine d enies. D ifficulty urinating d enies. F requent urination d enies. M usculoskeletal: Painful joints d enies. W eakness d enies. ? S kin: Dry skin d enies. I tching d enies. D enies?Mole(s), changes in moles, new moles or any lesions of concern. D enies P hotosensitivity. R zac d enies. N eurologic: Dizziness d enies. F ainting d enies. H eadache?denies. * Medical History: * Surgical History: * Hospitalization/Major Diagno stic Procedure: * Family History: F ather: 85 yrs. M other: 88 yrs, diagnosed with Alzheimer disease. 1 brother(s) . . Father-Parkinson's no family history of mental illness or drug abuse Mother- Alzheimer's , Denies mental health/substance abuse family history, No pertinent family medical history, Denies mental health/substance abuse family history, Denies mental health/substance abuse family history. * Social History: T obacco Use: T obacco Use/Smoking P atient is a n onsmoker, A dditional Findings: Tobacco Non-User C urrent non-smoker, currently using no form of tobacco. D rugs/Alcohol: A lcohol Screen D id you have a drink containing alcohol in the past year? N o, P oints 0 , I nterpretation N egative. M iscellaneous: C affeine: yes, frequency:, 1-2 cups per day. Children: no. Community involvements: no. Exercise: yes, walks 1 mile a day and weights. Home smoke detector use: yes. Housing: owning. Living with: spouse. Marital status: . Occupation: works part- time. Pets: none. Travel outside of the [place]: no. * Medications: T akingAlfuzosin HCl ER 10 MG Tablet Extended Release 24 Hour 1 tablet immediately after the same meal Orally Once a day Aspirin Adult Low Strength 81 MG Tablet Delayed Release 0.5tablet Orally every other day Finasteride 5 MG Tablet 1 tablet Orally Once a day Simvastatin 40 MG Tablet TAKE 1 TABLET BY MOUTH EVERY EVENING amLODIPine Besylate 5 MG Tablet TAKE 1 TABLET BY MOUTH EVERY DAY FOR 30 DAYS Taking Alfuzosin HCl ER 10 MG Tablet Extended Release 24 Hour 1 tablet immediately after the same meal Orally Once a day Taking Aspirin Adult Low Strength 81 MG Tablet Delayed Release 0.5tablet Orally every other day Taking Finasteride 5 MG Tablet 1 tablet Orally Once a day Taking Simvastatin 40 MG Tablet TAKE 1 TABLET BY MOUTH EVERY EVENING Taking amLODIPine Besylate 5 MG Tablet TAKE 1 TABLET BY MOUTH EVERY DAY FOR 30 DAYS Not-Taking/PRNLisinopril 20 MG Tablet TAKE 1 TABLET BY MOUTH TWICE DAILY EVERY DAY Lisinopril-hydroCHLOROthiazide 20-12.5 MG Tablet TAKE 1 TABLET BY MOUTH EVERY DAY Orally Once a day Finasteride 5 MG Tablet take 1/2 tablet Oral Once a day Medication List reviewed and reconciled with the patientNot-Taking/PRN Lisinopril 20 MG Tablet TAKE 1 TABLET BY MOUTH TWICE DAILY EVERY DAY Not-Taking/PRN Lisinopril-hydroCHLOROthiazide 20-12.5 MG Tablet TAKE 1 TABLET BY MOUTH EVERY DAY Orally Once a day Not-Taking/PRN Finasteride 5 MG Tablet take 1/2 tablet Oral Once a day Medication List reviewed and reconciled with the patient * Allergies: N .K.D.A.yes[Allergies Verified] Objective: * Vitals: H t: 74, Wt: 237, BMI:31.26, BP:156/78, Repeat BP:152/86, Wt-k.5. weight is down 4 pounds since 2--25/ bp good at home. * P ast Orders: L ab:PSA,Total (Free>4and<10) (Order Date - 12/31/2024) (Collection Date & Time - 12/31/2024 08:00 AM) Value Reference Range PSA,Total (Free>4and<10) 3.50 0.00-4.00 - ng/ mL L ab:Vitamin D 25-OH Total (Order Date 12/31/2024) (Collection Date & Time - 12/31/2024 08:00 AM) Value Reference Range Vitamin D 25-OH Total 26.7 L >30 - ng/mL L ab:Microalbumin, Random (Order Date 12/31/2024) (Collection Date & Time - 12/31/2024 08:00 AM) Value Reference Range Creatinine Urine 53.06 - mg/dL Microalbumin Urine < 5.0 - mg/L Microalbum Creatinine Ratio Ur TNP <30 - ug/ mg cr L ab:Complete Blood Count Auto Diff (Order Date 12/31/2024) (Collection Date & Time - 12/31/2024 08:00 AM) Value Reference Range White Blood Count 7.3 4.8-10.8 - X10*3/uL Red Blood Count 4.77 4.60-5.80 - X10*6/uL Hemoglobin 14.5 14.0-18.0 - g/dl Hematocrit 42.1 42.0-52.0 - % Mean Corpuscular Volume 88.3 80.0-98.0 - fL Mean Corpuscular Hemoglobin 30.4 27.0-33.0 - pg Mean Corpuscular HGB Conc 34.4 31.0-36.0 - g/ dl Red Cell Distribution Width 12.9 11.0-16.0 - % Platelet Count 227 160-400 - X10*3/uL Mean Platelet Volume 9.9 9.4-12.4 - fL Neutrophils Percent Auto 59.4 45-73 - % Imm Gran Pct Auto 0.3 0.0-0.4 - % Lymphocytes Percent Auto 28.3 20-40 - % Monocytes Percent Auto 8.8 2-11 - % Eosinophils Percent Auto 2.5 0-4 - % Basophils Percent Auto 0.7 0-2 - % NRBC Pct Auto 0.0 0.0-0.2 - /100WBC Neutrophils Absolute Auto 4.3 2.0-8.3 - x10* 3/uL Imm Gran Abs Auto 0.02 0.00-0.03 - X10*3/uL Lymphocytes Absolute Auto 2.1 1.2-4.9 - X10* 3/uL Monocytes Absolute Auto 0.6 0.1-1.2 - X10*3/ uL Eosinophils Absolute Auto 0.2 0.0-0.4 - X10* 3/uL Basophils Absolute Auto 0.1 0.0-0.2 - X10*3/ uL NRBC Abs Auto 0.000 0.0-0.012 - X10*3/uL L ab:Hemoglobin A1c (Order Date - 12/31/2024) (Collection Date & Time - 12/31/2024 08:00 AM) Value Reference Range Hemoglobin A1c % 5.9 <6.0 - % Estimated Average Glucose 123 - mg/dL L ab:Comprehensive [place]. Panel Fast (Order Date 12/31/2024) (Collection Date & Time - 12/31/2024 08:00 AM) Value Reference Range Sodium 142 135-145 - mmol/L Bilirubin Total 0.7 0.0-1.0 - mg/dL Aspartate Amino Transferase 25 5-37 - U/L Alanine Aminotransferase 34 0-40 - U/L Total Protein 7.4 6.5-8.0 - g/dL Albumin Level 4.8 3.5-5.0 - g/dL Alkaline Phosphatase 56 39-117 - U/L Potassium 4.1 3.3-5.1 - mmol/L Chloride 108 96-108 - mmol/L Carbon Dioxide 26 22-29 - mmol/L Anion Gap 12 12-20 - Blood Urea Nitrogen 21 H 9-16 - mg/dL Creatinine 0.93 0.5-1.4 - mg/dL Estimated Glomerular Filt Rate > 60 - Glucose Fasting 108 H 60-99 - mg/dL Calcium 10.8 H 8.4-10.2 - mg/dL L ab:UA ClnCatch+Micro w/rflx Cult (Order Date - 12/31/2024) (Collection Date & Time - 12/31/2024 08:00 AM) Value Reference Range Color Urine Yellow - Appearance Urine Clear - PH 6.0 5.0-9.0 - Glucose Urine UA Negative Negative - mg/dL Urine Blood Negative Negative - Specific [place] - Urine 1.010 1.005-1.025 - Urine Protein Negative Neg-Trace - mg/dL Urine Ketones Negative Negative - mg/dL Nitrite Urine Negative Negative - Leukocyte Esterase Urine Trace A Negative - RBC Urine 0-2 0-2 - /HPF WBC Urine 0-5 0-5 - /HPF Squamous Epithelial Cell Urine 0-2 0-2 - /HP F Bacteria Urine None Seen None Seen - Hyaline Casts Urine 0-2 0-2 - /LPF L ab:Lipid Panel (Order Date - 12/31/2024) (Collection Date & Time - 12/31/2024 08:00 AM) Value Reference Range Triglycerides 171 H <150 - mg/dL Cholesterol 138 <200 - mg/dL LDL Cholesterol Calculated 63 <100 - mg/dL HDL Cholesterol 41 >40 - mg/dL * Examination: G eneral Examination: GENERAL APPEARANCE: w ell developed, well nourished, in no acute distress. HEAD: n ormocephalic, atraumatic. EYES: p upils equal, round, reactive to light and accommodation, sclera non-icteric. EARS: n ormal. ORAL CAVITY: m ucosa moist. THROAT: c lear. NECK/THYROID: n karen supple, full range of motion, no cervical lymphadenopathy, no bruits. SKIN: w arm and dry, no suspicious lesions. HEART: r egular rate and rhythm, S1, S2 normal, no murmurs.? LUNGS: c lear to auscultation bilaterally. ABDOMEN: s oft, nontender, nondistended, bowel sounds present, normal, no organomegaly , no masses palpable. RECTAL EXAM: n ormal tone, no external hemorrhoids, no masses palpable, prostate normal, stool guaiac negative. MALE GENITOURINARY: c ircumcised, no penile lesions or discharge, testes descended bilaterally, no testicular mass. EXTREMITIES: n o clubbing, cyanosis, or edema. NEUROLOGIC: n onfocal, motor strength normal upper and lower extremities, sensory exam intact. Assessment: * Assessment: 1. A nnual physical exam - Z00.00 (Primary) 2 . E ncounter for screening for malignant neoplasm of colon - Z12.11 3 . E ncounter for screening for malignant neoplasm of rectum - Z12.12 4 . E ssential hypertension - I10 5 . H ypercalcemia - E83.52 6 . E levated PSA - R97.20 7 .?Pure hypercholesterolemia - E78.00 8 . T ype 2 diabetes mellitus without complication, without long-term current use of insulin - E11.9 9 . D epression screening - Z13.31 Plan: * Treatment: 2. E ncounter for screening for malignant neoplasm of colon L AB: COLOGUARD Notes: order faxed to [facility] 3. E ncounter for screening for malignant neoplasm of rectum L AB: COLOGUARD 4. E ssential hypertension Continue amLODIPine Besylate Tablet, 5 MG, TAKE 1 TABLET BY MOUTH EVERY DAY FOR 30 DAYS. Notes: running good at home, will contnue current regiment 5. H ypercalcemia Notes: stable, will continue to monitor 6. E levated PSA Continue Finasteride Tablet, 5 MG, 1 tablet, Orally, Once a day. Notes: will be seeing dr perry 7. P ure hypercholesterolemia Continue Simvastatin Tablet, 40 MG, TAKE 1 TABLET BY MOUTH EVERY EVENING. Notes: stable, will continue current regiment 8. T ype 2 diabetes mellitus without complication, without long-term current use of insulin Notes: stable, will continue current regiment 9. D epression screening Notes: negative screen * Procedure Codes: * Preventive Medicine: Diabetes Care Plan: P atient Lifestyle Goals N eeds to maintain diet control.?Treatment Goals A 1C< 7. B arriers N o specific barriers, doing well. E xpected Outcome m aintaining stable blood sugar levels within a target range. * Follow Up: 6 Months (Reason: bp) * * Sign off status: Completed true * Provider: Mary Fields MD Date: 0 01/06/2025 Generated for Darek major/Clayton/eTvismitting on: 0 04/07/2025 08:54 AM EDT History and Physical Notes * HPI (History of Present Illness) Category Sub-Category Detail Notes Category Not es Symptom(s) patient is a 74 yo male here for annual visit with review of recent labs and follow up of chronic issues Depression Screening PHQ-9 Little inte rest or pleasure in doing things: Not at all Feeling down, depressed, or hopeless: No t at all Trouble falling or staying asleep, or sl eeping too much: Not at all Feeling tired or having little energy: N ot at all Poor appetite or overeating: Not at all Feeling bad about yourself o r that you are a failure, or have let yourself or your family down: Not at all Trouble concentrating on thi ngs, such as reading the newspaper or watching television: Not at all Moving or speaking so slowly that other people could have noticed; or the opposite, being so fidgety or restless that you have been moving around a lot more than usual: Not at all Thoughts that you would be b rashmi off or of hurting yourself in some way: Not at all Total Score: 0 Interpretation and Intervention Depression Ewa irizarry Findings: Negative Follow-Up for Depression: : review of PH Q-9 found negative result, no follow-up needed SDOH Questions SDOH Questions In the past year have you been worried about losing housing?: No In the past year have you or any family members you live with been unable to get any of the following when it was really needed? Check all that apply:: None Fall Risk History Have you had any falls with injury i n the past year?: No Have you had two or more falls in the st year?: No Communication Needs Communication Needs Does the patient have a hearing impairment: Yes If yes, what is the hearing impairment?: Hard of hearing, Hearing Aids Does the patient have a vision impairmen t?: Yes If yes, what is the vision impairment?: Glasses Does the patient have a cognition impair ment?: No Examination Category Sub-Category Detail Notes Category Not es General Examination GENERAL APPEARANCE: well dev eloped, well nourished, in no acute distress HEAD: normocephalic, atrau matic EYES: pupils equal, round, reactive to light and accommodation, sclera non-icteric EARS: normal THROAT: clear NECK/THYROID: neck supple, full ra nge of motion, no cervical lymphadenopathy, no bruits HEART: regular rate and rhy thm, S1, S2 normal, no murmurs LUNGS: clear to auscultatio n bilaterally ABDOMEN: soft, nontender, non distended, bowel sounds present, normal, no organomegaly , no masses palpable NEUROLOGIC: nonfocal, motor stre ngth normal upper and lower extremities, sensory exam intact SKIN: warm and dry, no ashley picious lesions EXTREMITIES: no clubbing, cyanosi s, or edema MALE GENITOURINARY: circumcised, no peni le lesions or discharge, testes descended bilaterally, no testicular mass RECTAL EXAM: normal tone, no exte rnal hemorrhoids, no masses palpable, prostate normal, stool guaiac negative ORAL CAVITY: mucosa moist
--- OUTSIDE RECORDS SUMMARY | 2025-01-10 11:34 | XMS_ITS ---
Author Organization Moses Fields MD Address [address] [place] [phone] Care Team Providers Care Oil Heaterman Name Role Phone Moses Fields Primary Care Provider Medications Medication SIG (Take, Route, Frequency, Duration) Notes Start Date End Date Status Atorvastatin Calcium 40 MG 1 tablet Oral ly Once a day for 90 days 01/10/2025 Active Encounters Encounter Location Date Provider Diagnosis Moses Fields MD [address] [place] [phone] 01/10/2025 Moses Fields Pure hypercholestero lemia E78.00 Assessments Encounter Date Diagnosis (ICD Code) Assessment Notes Treatment Notes Treatment Clinical Notes Section Notes 01/10/2025 Pure hypercholesterolemia (ICD-10 - E78.00) Plan Of Treatment Medication Medication Name Sig Start Date Stop Date Notes Atorvastatin Calcium 40 MG 1 tablet Oral ly Once a day for 90 days 01/10/2025 Simvastatin 40 MG TAKE 1 TABLET BY LYNN TH EVERY EVENING Next Appt Details Provider Name:Moses valdivia, 07/04/2025 10:00:00 AM, [address] [facility], [address], [place], [place], [phone], Provider Name:Moses Lynn ier, 01/03/2026 07:15:00 AM, [address], [address], [place], [phone], Provider Name:Moses Lynn shea, 01/10/2026 09:30:00 AM, [address], [address], [place], [phone], Progress Notes * BALA WILSONDOB:1950 (74 yo M)Acc No.[id number]:01/10/2025 Patient: BALA PARHAM :1950 A ge:74 Y S ex:Male Address: [address], [place], [address] * Refills Stop Simvastatin Tablet, 40 MG, TAKE 1 TABLET BY MOUTH EVERY EVENING Start Atorvastatin Calcium Tablet, 40 MG, Orally, 90 Tablet, 1 tablet, Once a day, 90 days, Refills=3 * true * Date: Generated for Darek major/Clayton/Amaraitting on: 0 04/07/2025 08:53 AM EDT
--- OUTSIDE RECORDS SUMMARY | 2025-02-11 05:46 | XMS_ITS ---
Author Organization Moses Fields MD Address [address] [place] [phone] Care Team Providers Care Senior Planner Name Role Phone Moses Fields Primary Care Provider [phone] REASON FOR VISIT High BP Encounters Encounter Location Date Provider Diagnosis Moses Fields MD [address] [facility] [address] [place] [phone] 02/11/2025 Moses Fields Plan Of Treatment Next Appt Details Provider Name:Moses Lynn ier, 07/04/2025 10:00:00 AM, [address] [place] [address], [address] [place] [address], [phone], Provider Name:Moses Lynn ier, 01/03/2026 07:15:00 AM, [address] [place] [address], [address], [phone], Provider Name:Moses Lynn ier, 01/10/2026 09:30:00 AM, [address] [place] [address], [address], [phone], Progress Notes * FABRICIO WILSON:1950 (74 yo M)Acc No.[id number]:02/11/2025 Patient: BALA PARHAM :1950 A ge:74 Y S ex:Male Address:[address] [place] [address] , [place], [place], [place] [address] * true * Date: Generated for Darek major/Clayton/Raheemsmitting on: 0 04/07/2025 08:53 AM EDT
--- NOTE | 2025-04-07 08:28 | MHC.OFFVIS ---
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 He is a patient of Dr. Fields. He is seen for following urologic conditions - incomplete bladder emptying - elevated PVR - bilateral hydronephrosis Telemedicine Evaluation 15 min Consultation [employer] Jalen Video Discussed findings Has been offered intervention At this point he is hesitant and his interpretation of the ultrasound is that he has improved his voiding trial as he has a low residual. 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 [place] and [place] will review him in the spring Repeat ultrasound 12/26 Persistent mild bilateral hydronephrosis to the level of the bladder Bladder wall thickening with residual approximately 300 cc Prostate measurement remains 85 g 03/28 Cr 0.8 Recent renal US - 09/28 Bilateral mild hydronephrosis and diffuse bilateral hydroureter to the level of the bilateral UVJs. No definite obstructing lesion evident. Urinary bladder wall is thickened and trabeculated, and there is significant post void residual of 809 mL. Findings suggest long-standing outlet obstruction. There is significant prostate enlargement with estimated volume of 101 mL Found information online from physical therapist about voiding positions to relax pelvic floor Prior Discussed use of squatty potty On cystoscopy Has trilobar hypertrophy. Recommend GreenLight laser procedure. 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 Incomplete bladder emptying PVR 200 cc Feels as though he is emptying Discussed trial of medications High PVR PSA 4.7 free PSA 34%, 12/26 3.5 Imaging - ultrasound with mild bilateral hydronephrosis Prescriptions provided finasteride and alfuzosin Three-month follow-up PFSH Medical History Hyperparathyroidism Surgical History Hx of cystoscopy Hx of colonoscopy Family History Father Parkinsons Mother Alzheimer disease Social History Household Members: Spouse Household Members Other:: Alcohol intake: current Alcohol intake frequency: does not drink Patient Tobacco Use Status: Never used Tobacco Telehealth Telehealth Telehealth Platform: [employer] Location of provider rendering services: practice address Location of patient: address on file Patient Identification confirmed using: Name, : Yes Telehealth method: video Patient verbally consented to treatment: Yes Patient verbally consented to billing insurance company: Yes Patient informed of any privacy concerns related to visit: Yes Minutes spent on Phone/Video with Pt.: 15 Assessment & Plan Assessment & Plan (1) Incomplete emptying of bladder due to benign prostatic hyperplasia: Code(s): N40.1 - Benign prostatic hyperplasia with lower urinary tract symptoms; R33.9 - Retention of urine, unspecified Category: Medical (2) Hydronephrosis: Code(s): N13.30 - Unspecified hydronephrosis Category: Medical Plan Repeat renal bladder imaging in December Orders: Orders US retroperitoneal comp 6 Months N13.30 - Unspecified hydronephrosis Medications: Refilled alfuzosin ER administer after the same meal each day 10 mg PO DAILY 90 tabs 3RF 90 days N13.8 - Other obstructive and reflux uropathy, N40.1 - Benign prostatic hyperplasia with lower urinary tract symptoms, R33.9 - Retention of urine, unspecified finasteride 5 mg PO DAILY 90 tabs 3RF 90 days N32.0 - Bladder-neck obstruction, N40.1 - Benign prostatic hyperplasia with lower urinary tract symptoms, R33.9 - Retention of urine, unspecified Patient Instructions: This note is constructed using voice recognition software. While every effort has been made to ensure accuracy grinder set up operator thread errors may have been included. Imaging studies, laboratory and physical exam results were discussed and reviewed in detail. No major barriers to patient understanding were identified. An opportunity to ask questions regarding the treatment plan was provided. All questions were answered. The patient expressed understanding and agreement with the above treatment plan. The patient is aware they should contact our office by phone for worsening of their current condition or the appearance of new urologic symptoms. Compliance is encouraged with any medications and followup testing that is ordered. It is a privilege to participate in the urologic care of your patient. If you have any questions or concerns regarding treatment for the above conditions, or other urologic issues, please do not hesitate to contact me. The office telephone contact is [phone]. Sincerely, Dr Casa Valladares MD, [facility] - Urology Compassionate Specialist Care for the Genitourinary System Coding Level of Care Code Tele Est Pt Level 3 (54305) Complex EM visit Add On G2211 Diagnoses Incomplete emptying of bladder due to benign prostatic hyperplasia N40.1; R33.9 Hydronephrosis N13.30
--- OUTSIDE RECORDS SUMMARY | 2025-04-07 08:53 | XMS_ITS | Clinical Summary ---
Author Organization [employer] Address [address] [facility] 7t [place] [address] Care Team Providers Care Ice Seller Name Role Phone Unavailable Primary Care Provider [...] Description 06/13/2025 9:00 AM EST Office Visit [facility] [address] [place], [place] [phone] Winifred Jimenez [address] [place], [place] [phone] Health Maintenance Due Date Last Done Comments CT Colonography 1950 Colonoscopy 1950 Dental X-Ray: Full Mouth 1950 Depression Screening 1950 FIT 1950 Lipid Panel 1950 SDOH Screening 1950 Sigmoidoscopy 1950 Alcohol/Substance Use Screening 1963 Hepatitis C Screening 1969 DTaP/Tdap/Td Vaccines (1 - Tdap) 1970 Zoster Vaccines (1 of 2) 2001 FOBT 01/15/2023 01/15/2022 Colorectal Cancer Screening 01/15/2025 FIT DNA/Cologuard 01/15/2025 01/15/2022 COVID-19 Vaccine ( season) 2025 06/25/2021, 10/26/2020, 09/29/2020, Additional history exists Influenza Vaccine (#1) 2025 , 05/20/2023, 05/31/2022, [...] Health Maintenance Insurance DENTAL - [employer] [place]
--- OUTSIDE RECORDS SUMMARY | 2025-04-07 08:54 | XMS_ITS | Encounter Summary ---
Author Organization [employer] Address [address] [place] [address] [address] [place] [address] Care Team Providers Care Core Composer Feeder Name Role Phone Unavailable Primary Care Provider Unavailabl e Encounter Details Date Type Department Care Team (Latest Contact Info) Description 04/24/2021 Abstract [facility] CONVERSIONS Dental, Provider, DDS Social History [...] Description 06/13/2025 9:00 AM EST Office Visit [facility] [address] [place] [address] Winifred Jimenez [address] [place], [place] [phone] documented as of this encounter Visit Diagnoses Not on filedocumented in this encounter
--- OUTSIDE RECORDS SUMMARY | 2025-04-07 08:54 | XMS_ITS | Clinical Summary ---
Author Organization [facility] [address] [facility] Address [address] [place] [address] Phone Care Team Providers Care Epic Trainer Name Role Phone Moses Fields MD Primary Care Provider [phone] Allergies No known active allergies Medications alfuzosin [...] Description 03/16/2025 7:28 AM EDT Anesthesia Event [facility] Endoscopy [address] [place] [phone] Nnamdi Duron MD 03/16/2025 6:43 AM EDT - 03/16/2025 11:59 PM EDT Hospital Encounter [facility] Endoscopy [address] [place] [phone] Mitch Tate MD Johnson, Lorraine, CRNA Positive colorectal cancer screening using Cologuard test Discharge Disposition: Home or Self Care 02/07/2025 Telephone Gastroenterology - 299 [facility] [address] [facility] [address] [place] [phone] Mitch Tate MD from Last 3 Months Surgical History Surgery [...] 2001 Zoster Vaccines (1 of 2) 2001 Cholesterol Screening (Lipid Panel) 06/29/2024 Hepatitis C Screening 06/29/2024 Medicare Annual Wellness Visit 06/29/2024 Social Influencers of Health Screening 06/29/2024 Depression Screening 08/04/2024 COVID-19 Vaccine ( - season) 2025 Influenza Vaccine (#1) 2025 RSV Immunization Adult [...] Months Results * COLONOSCOPY Anesthesia - MAC; [facility] ENDOSCOPY (03/16/2025 7:46 AM EDT) Anatomical Region [...] office PRN. Narrative 03/16/2025 7:46 AM EDT [facility] GI Patient Name: Aaron Maddox Procedure Date: [...] retroflexion views. Procedure Code(s): --- Professional --- 49523, Colonoscopy, flexible; diagnostic, including collection of specimen(s) by brushing or washing, when performed (separate procedure) Diagnosis Code(s): --- Professional --- R19.5, Other fecal abnormalities CPT copyright 2020 [employer]. All rights reserved. The codes documented in this report are preliminary and upon paver layer review may be revised to meet current compliance requirements. Mitch Tate MD 03/16/2025 7:46:13 AM This report has been signed electronically.Mitch Tate MD Number of Addenda: 0 Note Initiated On: 03/16/2025 7:20 AM Scope In: Scope Out: Endoscopy Department at [facility] - [address] [place] [phone] Procedure Note Mitch Tate MD - 03/16/2025 [facility] GI Patient Name: Aaron Maddox Procedure Date: [...] retroflexion views. Procedure Code(s): --- Professional --- 69228, Colonoscopy, flexible; diagnostic, including collection of specimen(s) by brushing or washing,when performed (separate procedure) Diagnosis Code(s): --- Professional --- R19.5, Other fecal abnormalities CPT copyright 2020 [employer]. All rights reserved. The codes documented in this report are preliminary and upon paver layer reviewmay be revised to meet current compliance requirements. Mitch Tate MD 03/16/2025 7:46:13 AM This report has been signed electronically.Mitch Tate MD Number of Addenda: 0 Note Initiated On: 03/16/2025 7:20 AM Scope In: Scope Out: Endoscopy Department at [facility] - [address] [place] [phone] IMPRESSION: - Non-bleeding internal hemorrhoids. - The [...] CROSS - [place] Care Teams Epic Trainer Relationship Specialty Start Date End Date Moses Fields MD [address] [place] [address] Drive [address] [place] [address] PCP - General Internal Medicine 02/07/25
--- OUTSIDE RECORDS SUMMARY | 2025-04-07 08:54 | XMS_ITS | Encounter Summary ---
Author Organization [employer] Address [address] [place] [address] [address] [place] [address] Care Team Providers Care Fire Management Specialist Name Role Phone Unavailable Primary Care Provider Unavailabl e Encounter Details Date Type Department Care Team (Latest Contact Info) Description 04/18/2022 Abstract [facility] CONVERSIONS Dental, Provider, DDS Social History Tobacco [...] Description 06/13/2025 9:00 AM EST Office Visit [facility] [address] [place] [address] Winifred Jimenez [address] [place], [place] [phone] documented as of this encounter Visit Diagnoses Not on filedocumented in this encounter
--- OUTSIDE RECORDS SUMMARY | 2025-04-07 08:54 | XMS_ITS | Patient Health Record ---
Author Organization Moses Fields MD Address [address] [place], [place] [id number] Care Team Providers Care Ekg Technician Name Role Phone Moses Fields Primary Care Provider Allergies No Known Allergies Results Component Value Reference Range Notes Liver Panel Reviewed date:07/05/2024 05:21:28 PM Interpretation: Performing Lab:[facility], [address] [place] [phone] Notes/Report: Bilirubin Total 0.6 0.0-1.0 mg/dL Bilirubin Direct 0.2 0.0-0.5 mg/dL Aspartate Amino Transferase 25 5-37 U/L Alanine Aminotransferase 34 0-40 U/L Total Protein 7.3 6.5-8.0 g/dL Albumin Level 4.6 3.5-5.0 g/dL Alkaline Phosphatase 53 39-117 U/L Glucose Fasting Reviewed date:07/05/2024 05:21:06 PM Interpretation: Performing Lab:[facility], [address] [place] [address] Notes/Report: Glucose Fasting 102 60-99 mg/dL A fasting glucose from 100-125 mg/dl is considered impaired (pre-diabetes). Lipid Panel with Reflex Reviewed date:07/05/2024 05:21:18 PM Interpretation: Performing Lab:[facility], [address] [place] [phone] Notes/Report: Triglycerides 180 <150 mg/dL Desirable Triglyceride: [...] A1c Reviewed date:07/05/2024 05:18:49 PM Interpretation: Performing Lab:[address] [phone] Notes/Report: Hemoglobin A1c % 5.8 <6.0 % [...] average glucose, using the formula of the C1T-Rpifkgd Average Glucose study (ADAG), Diabetes Care, Vol.31,#8, 2007 Complete Blood Count Auto Di ff Reviewed date:12/31/2024 04:13:59 PM Interpretation: Performing Lab:[facility], [address] [place] [phone] Notes/Report: White Blood Count 7.3 4.8-10.8 X10*3/uL [...] 0.0-0.2 /100WBC Neutrophils Absolute Auto 4.3 2.0-8.3 x10*3/uL Imm Gran Abs Auto 0.02 0.00-0.03 X10*3/uL Lymphocytes Absolute Auto 2.1 1.2-4.9 X10*3/uL Monocytes Absolute Auto 0.6 0.1-1.2 X10*3/uL Eosinophils Absolute Auto 0.2 0.0-0.4 X10*3/uL Basophils Absolute Auto 0.1 0.0-0.2 X10*3/uL NRBC Abs Auto 0.000 0.0-0.012 X10*3/uL Comprehensive Martha. Panel Fa st Reviewed date:12/31/2024 01:29:04 PM Interpretation: Performing Lab:[facility], [address] [place] [phone] Notes/Report: Sodium 142 135-145 mmol/L Potassium 4.1 [...] Panel Reviewed date:12/31/2024 01:29:12 PM Interpretation: Performing Lab:[facility], [address] [place] [phone] Notes/Report: Triglycerides 171 <150 mg/dL Desirable Triglyceride: [...] (Free>4and<10) Reviewed date:12/31/2024 04:11:13 PM Interpretation: Performing Lab:[facility], [address] [place] [phone] Notes/Report: PSA,Total (Free>4and<10) 3.50 0.00-4.00 ng/mL A [...] Total Reviewed date:12/31/2024 04:11:44 PM Interpretation: Performing Lab:[facility], [address] [place] [phone] Notes/Report: Vitamin D 25-OH Total 26.7 >30 [...] Random Reviewed date:12/31/2024 12:50:53 PM Interpretation: Performing Lab:[facility], [address] [place] [phone] Notes/Report: Creatinine Urine 53.06 Microalbumin Urine < 5.0 Microalbum/Creatinine Ratio Ur TNP <30 ug/mg cr Unable to calculate albumin/creatinine ratio due to low microalbumin or creatinine result. Hemoglobin A1c Reviewed date:12/31/2024 12:49:44 PM Interpretation: Performing Lab:[address] [phone] Notes/Report: Hemoglobin A1c % 5.9 <6.0 % [...] average glucose, using the formula of the C8O-Jkufcvb Average Glucose study (ADAG), Diabetes Care, Vol.31,#8, Mar. 2007 UA ClnCatch+Micro w/rflx Cul t Reviewed date:12/31/2024 04:16:30 PM Interpretation: Performing Lab:[facility], [address] [place] [phone] Notes/Report: Urine, Clean Catch Color Urine Yellow Appearance Urine Clear PH 6.0 5.0-9.0 Glucose Urine UA Negative Negative mg/dL Urine Blood Negative Negative Specific [place] - Urine 1.010 1.005-1.025 Urine Protein Negative Neg-Trace mg/dL Urine Ketones Negative Negative mg/dL Nitrite Urine Negative Negative Leukocyte Esterase Urine Trace Negative RBC Urine 0-2 0-2 /HPF WBC Urine 0-5 0-5 /HPF Squamous Epithelial Cell Urine 0-2 0-2 /HPF Bacteria Urine None Seen None Seen Hyaline Casts Urine 0-2 0-2 /LPF Urinalysis and Microscopic Reviewed date:05/07/2024 12:44:18 PM Interpretation: Performing Lab:[facility], [address] [place] [phone] Notes/Report: Color Urine Yellow Appearance Urine Turbid PH 6.0 5.0-9.0 Glucose Urine UA Negative Negative mg/dL Urine Blood Small (1+) Negative Specific Madison - Urine 1.010 1.005-1.025 Urine Protein Trace Neg-Trace mg/dL Urine Ketones Negative Negative mg/dL Nitrite Urine Negative Negative Leukocyte Esterase Urine Large (3+) Negative RBC Urine 0-2 0-2 /HPF WBC Urine >50 0-5 /HPF Squamous Epithelial Cell Urine 0-2 0-2 /HPF Bacteria Urine 1+ None Seen Hyaline Casts Urine 0-2 0-2 /LPF Urine Culture Reviewed date:05/10/2024 12:00:39 PM Interpretation: Performing Lab:[facility], [address] [place] [phone] Notes/Report: O:STAEPI Staphylococcus epidermidis Urine Culture Quant Urine Culture > 100,000 cfu/mL Clindamycin <=0.25 Erythromycin >=8 Nitrofurantoin <=16 Oxacillin >=4 Penicillin-G >=0.5 Tetracycline >=16 Trimethoprim/Sulfamethox azole <=10 Vancomycin 2 Hold Gold Reviewed date:07/05/2024 12:54:31 PM Interpretation: Performing Lab:[facility], [address] [place] [phone] Notes/Report: Hold Gold See Note Specimen held untested for 24 hours; Call to request Chemistry testing. US renal BI Reviewed date:09/21/2024 09:12:26 AM Interpretation: Performing Lab: Notes/Report: [facility] [address] [place] [address] Ultrasound Report Signed Patient: Bala Maddox MR#: [id number] 3 : 1950 Acct:[id number] Age/Sex: 74 / M ADM Date: 09/17/24 [facility] Attending Dr: Moses Fields MD Ordering Physician: Moses Fields MD Date of Service: 09/17/24 Procedure(s): US renal BI Accession Number(s): [id number] cc: Moses Fields MD CLINICAL HISTORY: BPH, [...] 09/17/24 1634 DD/ 1634 TD/TT: 09/17/24 1634 Supervisor Metal Hanging: [facility] Primary [address] [place] [address] Ultrasound Report Signed Patient: Shiv Maddox er MR#: [id number] 3 : 1950 Acct:[id number] Age/Sex: 74 / M ADM Date: 09/17/24 Loc: [facility] Attending Dr: Moses Fields MD Ordering Physician: Moses Fields MD Date of Service: 09/17/24 Procedure(s): US madeleine al BI Accession Number(s): [id number] cc: Moses Fields MD CLINICAL HISTORY: BP [...] 09/17/24 1634 DD/ 1634 TD/TT: 09/17/24 1634 Supervisor Metal Hanging: US retroperitoneal comp Reviewed date:09/30/2024 04:12:56 PM Interpretation: Performing Lab: Notes/Report: [facility] [address] [place] [address] Ultrasound Report Signed with Addenda Patient: Bala Maddox MR#: [id number] 3 : 1950 Acct:[id number] Age/Sex: 74 / M ADM Date: 09/30/24 Loc: [facility] Attending Dr: Moses Fields MD Ordering Physician: Moses Fields MD Date of Service: 09/30/24 Procedure(s): US retroperitoneal comp Accession Number(s): [id number] cc: Moses Fields MD ADDENDUM ADDENDUM #1 [...] 09/30/24 1128 DD/ 1037 TD/TT: 09/30/24 1117 Supervisor Metal Hanging: [facility] [place] [address] Ultrasound Report Signed with Addenda Patient: Shiv Maddox MR#: [id number] 3 : 1950 Acct:[id number] Age/Sex: 74 / M ADM Date: 09/30/24 Loc: .[facility] Attending Dr: Moses Fields MD Ordering Physician: Moses Fields MD Date of Service: 09/30/24 Procedure(s): US retroperitoneal comp Accession Number(s): [id number] cc: Moses Fields MD ADDENDUM ADDENDUM #1 [...] lobe protrude s into the bladder base. US/US retroperitoneal comp [...] 09/30/24 1128 DD/ 1037 TD/TT: 09/30/24 1117 Supervisor Metal Hanging: US retroperitoneal comp Reviewed date:01/24/2025 05:32:59 PM Interpretation: Performing Lab: Notes/Report: [facility] [address] [place] [address] [place] [address] Ultrasound Report Signed with Lynnenda Patient: Bala Maddox MR#: [id number] 3 : 1950 Acct:[id number] Age/Sex: 74 / M ADM Date: 12/03/24 Loc: HO.[facility] Attending Dr: Casa Perry MD Ordering Physician: Casa Perry MD Date of Service: 12/03/24 Procedure(s): US retroperitoneal comp Accession Number(s): [id number] cc: Casa Perry MD; Moses Fields MD ADDENDUM 12/04/2024 08:31:06 ADDENDUM: ADDENDUM: The right kidney measures 11.3 x 5.6 x 5.5 cm. Left kidney measures 11.6 x 5.2 x 6.0 cm. The bilateral hydronephrosis does not appear to be significantly changed. This document has been electronically signed by: Jose Spear MD on 01/20/2025 19:57:41 Addendum Dictated By: Jose Spear MD Addendum Signed By: <Electronically signed by Jose Spear MD in OV> 01/21/25922 Addendum Cosigned By: DD/ /26/830 TD/TT: 01/20/25 ADDENDUM 12/04/2024 08:31:06 ADDENDUM: ADDENDUM: The right kidney measures 11.3 x 5.6 x 5.5 cm. Left kidney measures 11.6 x 5.2 x 6.0 cm. The bilateral hydronephrosis does not appear to be significantly changed. 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 [address] Ultrasound Report Signed with Addenda Patient: Shiv Maddox MR#: [id number] 3 : 1950 Acct:[id number] Age/Sex: 74 / M ADM Date: 12/03/24 Loc: HO.[facility] Attending Dr: Chauncey Cornell MD Ordering Physician: Casa Perry MD Date of Service: 12/03/24 Procedure(s): US retroperitoneal comp Accession Number(s): [id number] cc: Casa Perry MD; Moses Fields MD ADDENDUM 12/04/2024 08:31:06 ADDENDUM: ADDENDUM: The right kidney measures 11.3 x 5.6 x 5.5 cm. Left kidney measures 11.6 x 5.2 x 6.0 cm. The bilateral hydronephrosis does not appear to be significantly changed. This document has be en electronically signed by: Jose Spear MD on 01/20/2025 19:57:41 Addendum Dictated By : Jose Spear MD Addendum Signed By: <Electronically signed by Jose Spear MD in OV> 01/21/25922 Addendum Cosigned By: DD/ /26/830 TD/TT: 01/20/25 ADDENDUM 12/04/2024 08:31:06 ADDENDUM: ADDENDUM: The right kidney measures 11.3 x 5.6 x 5.5 cm. Left kidney measures 11.6 x 5.2 x 6.0 cm. The bilateral hydronephrosis does not appear to be significantly changed. 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) Findings: Right kidney normal size and echotexture, [...] in OV> 12/04/24830 DD/ 0 TD/TT: 12/04/24830 Supervisor Metal Hanging: Basic Metabolic Panel Reviewed date:03/28/2025 04:20:02 PM Interpretation: Performing Lab:[facility], [address] [place] [phone] Notes/Report: Sodium 140 135-145 mmol/L Potassium 4.0 3.3-5.1 mmol/L Chloride 108 96-108 mmol/L Carbon Dioxide 25 22-29 mmol/L Anion Gap 11 12-20 Blood Urea Nitrogen 10 9-16 mg/dL Creatinine 0.83 0.5-1.4 mg/dL Estimated Glomerular Filt Rate > 60 Chronic Kidney Disease: Estimated GFR < 60 mL/min/1.73m2 Severe Kidney Disease: Estimated GFR < 15 mL/min/1.73m2 Glucose Random 121 60-115 mg/dL Calcium 10.3 8.4-10.2 mg/dL Reason For Referral Reason needs a colonoscopy Diagnosis 1 Screening for colon cancer (Z12.11) Diagnosis 2 Positive colorectal cancer screening using Cologuard test (R19.5) Referral Organization Moses Fields MD Referring Provider First Name Moses Referring Provider Last Name Diamond Referring Provider Speciality Internal M edicine Referred Provider PHILLIP HUYNH Referred Provider Specialty Gastroentero logy General Notes Radha Osorio 0 01/31/2025 03:29:33 PM > referral info faxed, Radha Osorio 02/10/2025 02:33:38 PM > patient is aware of appt Referral Priority Routine Referral Appointment Date 03/16/2025 Medications Medication SIG (Take, Route, Frequency, Duration) [...] MOUTH EVERY DAY FOR 30 DAYS Active Atorvastatin Calcium 40 MG 1 tablet Orally Once a day for 90 days 01/10/2025 Active Lisinopril-hydroCHLOROthi azide 20-12.5 MG TAKE 1 TABLET BY MOUTH EVERY DAY Orally Once a day for 90 days Not-Taking Finasteride 5 MG 1 tablet Orally Once a day Active Aspirin Adult Low Strength 81 MG 0.5tablet Orally every other day Active Lisinopril 20 MG TAKE 1 TABLET BY LYNN TH TWICE DAILY EVERY DAY Not-Taking Immunizations Vaccine Route Administration Date Status Comme [...] Status W/U Status Risk Notes Problem Prostatism (79088857) Prostatism (N40.0) Active confirmed Problem 06756007 Vitamin D defici ency (E55.9) Active confirmed Problem Hypercalcemia (64293061) Hypercalcemia (E83.52) Active confirmed Problem 32684082 Hydroureter (N13.4) Active confirmed Problem 04633744 Essential hypertension (I10) Active confirmed Problem 172234193 Low HDL (under 4 0) (E78.6) Active confirmed Problem Hyperparathyroidism (17280877) Hyperparathyroidism (E21.3) Active confirmed Problem 590436128 History of hemat uria (Z87.448) Active confirmed Problem 773101654 Bladder outlet obstruction (N32.0) Active confirmed Problem 720318187 Pure hypercholesterolemia (E78.00) Active confirmed Problem 925735707 Type 2 diabetes mellitus without complication, without long-term current use of insulin (E11.9) Active confirmed Problem 529962280 Benign prostatic hyperplasia, unspecified whether lower urinary tract symptoms present (N40.0) Active confirmed Vital Signs Blood pressure diastolic 78 mm Hg 01/06/2025 jessie ght is down 4 pounds since 09-24-25/ bp good at home Height 73 in 01/06/2025 weight is down 4 pounds since 2--25/ bp good at home Blood pressure systolic 156 mm Hg 01/06/2025 weig ht is down 4 pounds since 2-25/ bp good at home Weight 237 lbs 01/06/2025 weight is down 4 pounds since 2--25/ bp good at home BMI 31.26 kg/m2 01/06/2025 weight is down 4 pounds since 2--25/ bp good at home Encounters Encounter Location Date Provider Diagnosis Moses Fields MD [address] [place] [id number] 07/05/2024 Moses Fields Pure hypercholestero lemia E78.00 and Type 2 diabetes mellitus without complication, without long-term current use of insulin E11.9 Moses Fields MD [address] [place] [address] Drive [address] [place] [id number] 12/31/2024 Moses Fields Blood tests for rout ine general physical examination Z00.00 ; Essential hypertension I10 ; Pure hypercholesterolemia E78.00 ; Type 2 diabetes mellitus without complication, without long-term current use of insulin E11.9 ; Prostatism N40.0 and Vitamin D deficiency E55.9 Moses Fields MD [address] [place] [id number] 04/19/2024 Moses Fields Bladder outlet obstr uction N32.0 and Gross hematuria R31.0 Moses Fields MD [address] [place] [id number] 06/11/2024 Moses Fields Essential hypertensi on I10 ; Prostatism N40.0 and Encounter for immunization Z23 Moses Fields MD [address] [place] [id number] 09/24/2024 Moses Fields Hydroureter N13.4 ; Essential hypertension I10 and Prostatism N40.0 Moses Fields MD [address] [place] [id number] 01/06/2025 Moses Fields Annual physical exam Z00.00 ; Encounter for screening for malignant neoplasm of colon Z12.11 ; Encounter for screening for malignant neoplasm of rectum Z12.12 ; Essential hypertension I10 ; Hypercalcemia E83.52 ; Elevated PSA R97.20 ; Pure hypercholesterolemia E78.00 ; Type 2 diabetes mellitus without complication, without long-term current use of insulin E11.9 and Depression screening Z13.31 Moses Fields MD [address] [place] [id number] 09/02/2024 Moses Fields MD [address] [place] [id number] 09/21/2024 Moses Fields Benign prostatic hyperplasia, unspecified whether lower urinary tract symptoms present N40.0 and Prostatism N40.0 Msoes Fields MD [address] [place] [id number] 09/30/2024 Moses Fields MD [address] [place] [id number] 09/30/2024 Moses Fields MD [address] [place] [id number] 01/10/2025 Moses Fields Pure hypercholestero lemia E78.00 Moses Fields MD [address] [place] [id number] 02/11/2025 Moses Fields Assessments Encounter Date Diagnosis (ICD Code) Assessment Notes Treatment Notes Treatment Clinical Notes Section Notes 07/05/2024 Pure hypercholesterolemia (ICD-10 - E78.00) 07/05/2024 Type 2 diabetes mellitus without complication, without long-term current use of insulin (ICD-10 - E11.9) 12/31/[address] ine general physical examination (ICD-10 - Z00.00) 04/19/2024 Bladder outlet obstruction (ICD-10 - N32.0) [...] going to make appt with dr perry 01/06/2025 Annual physical exam (ICD-10 - Z00.00) labs reviewed and discussed with patient 01/06/2025 Encounter for screen ing for malignant neoplasm of colon (ICD-10 - Z12.11) order faxed to [facility] 09/21/2024 Benign prostatic hyperplasia, unspecified whether lower urinary tract symptoms present (ICD-10 - N40.0) 01/10/2025 Pure hypercholesterolemia (ICD-10 - E78.00) 12/31/2024 Essential hypertensi on (ICD-10 - I10) 06/11/2024 Encounter for immunization (ICD-10 - Z23) flu vaccine adminstered 09/24/2024 Essential hypertensi on (ICD-10 - I10) patient verbalized understnding os medication and directions for use 01/06/2025 Encounter for screen ing for malignant neoplasm of rectum (ICD-10 - Z12.12) 09/21/2024 Prostatism (ICD-10 - N40.0) 12/31/2024 Pure hypercholesterolemia (ICD-10 - E78.00) 09/24/2024 Prostatism (ICD-10 - N40.0) pending diagnostioc testing 01/06/2025 Essential hypertensi on (ICD-10 - I10) running good at home, will contnue current regiment 12/31/2024 Type 2 diabetes mellitus without complication, without long-term current use of insulin (ICD-10 - E11.9) 01/06/2025 Hypercalcemia (ICD-1 0 - E83.52) stable, will continue to monitor 12/31/2024 Prostatism (ICD-10 - N40.0) 01/06/2025 Elevated PSA (ICD-10 - R97.20) will be seeing dr perry 12/31/2024 Vitamin D deficiency (ICD-10 - E55.9) 01/06/2025 Pure hypercholesterolemia (ICD-10 - E78.00) stable, will continue current regiment 01/06/2025 Type 2 diabetes mellitus without complication, without long-term current use of insulin (ICD-10 - E11.9) stable, will continue current regiment 01/06/2025 Depression screening (ICD-10 - Z13.31) negative screen Plan Of Treatment Pending Test Test Name Order Date Electrocardiogram (EKG) 08/21/2017 Electrocardiogram (EKG) 10/22/2018 CT ABD & PELVIS WWO CONTRAST 01/02/2024 BONE DENSITY DEXA 01/17/2022 RENAL US WITH BLADDER 09/24/2024 COLOGUARD 01/06/2025 US bladder 09/21/2024 Future Test Test Name Order Date US bladder 03/08/2024 US RENAL BILATERAL 09/11/2024 Next Appt Details Provider Name:Moses valdivia, 07/04/2025 10:00:00 AM, [address] [place] [address], [address], [place], [place], [phone], Provider Name:Moses valdivia, 01/03/2026 07:15:00 AM, [address], [address], [place], [place], [phone], Provider Name:Moses dunlapr, 01/10/2026 09:30:00 AM, [address], [address], [place], [place], [phone], Insurance Providers Payer Name Payer Address Payer Phone Subscriber Number Group Number Insured Name Patient Relationship to Insured Coverage Start Date Coverage End Date [employer] [facility] [address] [place], [place] [phone] [id number] BALA MADDOX Self - patient is the insured Medical (General) History Medical History History ICD Code hematuria [address] of kid neys but refused to see urologist and was only on underwear and not in bowl 04/01/2006 -colonoscopy; repeat in 10 yea rs; 11/27/18 has a negative Cologuard Cystoscopy 07/24/16 w/Dr. Perry
--- OUTSIDE RECORDS SUMMARY | 2025-04-07 08:54 | XMS_ITS | Encounter Summary ---
Author Organization [employer] Address [address] [place] [address] [address] [place] [address] Care Team Providers Care Shipwright Name Role Phone Unavailable Primary Care Provider Unavailabl e Encounter Details Date Type Department Care Team (Late st Contact Info) Description 07/01/2022 Abstract [facility] [address] [place] [address] Dental, Provider, DDS Social History Tobacco Use [...] Description 06/13/2025 9:00 AM EST Office Visit [facility] [address] [place] [address] Winifred Jimenez [address] [place] [phone] Scheduled Orders Name Type Priority Associated Diagnoses Orde r Schedule 25 LI 25 LI RESIN-BASED COMPOSITE - 2 SURF, ANTERIOR Dental Routine [address] arting 12/20/2024 24 LI 24 LI RESIN-BASED COMPOSITE - 2 SURF, ANTERIOR Dental Routine [address] arting 12/20/2024 23 LI 23 LI RESIN-BASED COMPOSITE - 2 SURF, ANTERIOR Dental Routine [address] arting 12/20/2024 5 MOD 5 MOD RESIN-BASED COMPOSITE - 3 SURF, POSTERIOR Dental Routine [address] arting 12/20/2024 documented as of this encounter Procedures Procedure [...] EST 23 MF COMPOSITE FILLING Routine 07/01/20 22 12:00 AM EST 11 DL COMPOSITE FILLING Routine 07/01/20 22 12:00 AM EST 9 MDL COMPOSITE FILLING Routine 07/01/20 22 12:00 AM EST 8 MDFL COMPOSITE FILLING [...]
== END 2025-04-07 09:29 | disposition home or self-care (01) ==
LOC: HO.HUSH 08:28
PROVIDERS: PCP Internal Medicine; Visit Provider Urology
DX: N40.1 Benign prostatic hyperplasia with lower urinary tract symptoms (principal); R33.9 Retention of urine, unspecified; N13.30 Unspecified hydronephrosis
CPT/HCPCS: 99213; G2211